=== PATIENT | female | born 1990 | race Caucasian/White ===

== ENCOUNTER 2023-04-04 00:49 | Emergency (ER) | payer OTHER, SELFPAY ==
[2023-04-04 00:57] VITALS: BP 140/80; PULSE 100; RESP 18; TEMP 36.6; O2SAT 100; BMI 22.6
--- NOTE | 2023-04-04 01:08 | ED.GENADUL1 ---
HPI - General Adult General Stated complaint: SPECTRUM IN NOSE Time Seen by Provider: 04/04/23 00:55 Source: patient Mode of arrival: walk-in Limitations: no limitations History of Present Illness HPI narrative: 32-year-old female presents for a hole in the septum of her nose. She's noticed it about two weeks ago. She snorts heroin. She is now in outpatient rehab and has been in that rehab for five or six days. She's had no purulent drainage or fever or bleeding. She wanted to get checked to make sure that she wasn't needing emergent care. Related Data Home Medications Medication Instructions Recorded Confirmed No Known Home Medications 04/04/23 04/04/23 Allergies Allergy/AdvReac Type Severity Reaction Status Date / Time No Known Drug Allergies Allergy Verified 04/04/23 01:00 Review of Systems ROS Narrative A ten point review of systems is negative except as noted above. Exam Narrative Exam Narrative: Nurses note and vital signs reviewed and patient is not hypoxic. General: The patient appears well and in no apparent distress. she is tearful Skin: Warm, dry, no pallor noted. There is no rash noted. Head: Normocephalic, atraumatic Eye: Normal conjunctiva, no drainage Ears, Nose, Mouth, and Throat: oral mucosa is moist. Nares patent. septal perforation present. No bleeding or purulent drainage. Cardiovascular: Regular Rate and Rhythm Respiratory: Patient is in no distress, no accessory muscle use, lungs are clear to auscultation, no wheezing, rales or rhonchi Back: non-tender GI: nontender Musculoskeletal: The patient has no evidence of calf tenderness, no pitting edema, symmetrical pulses noted bilaterally Neurological: A&O, normal speech Psychiatric: Cooperative Constitutional Vital Signs, click to edit/add: Last Vital Signs Temp 98 F 04/04/23 00:57 Pulse 100 H 04/04/23 00:57 Resp 18 04/04/23 00:57 BP 140/80 04/04/23 00:57 Pulse Ox 100 04/04/23 00:57 O2 Del Method Room Air 04/04/23 00:57 Course Vital Signs Vital signs: Vital Signs Temperature 98 F 04/04/23 00:57 Pulse Rate 100 H 04/04/23 00:57 Respiratory Rate 18 04/04/23 00:57 Blood Pressure 140/80 04/04/23 00:57 Pulse Oximetry 100 04/04/23 00:57 Oxygen Delivery Method Room Air 04/04/23 00:57 Temperature 98 F 04/04/23 00:57 Pulse Rate 100 H 04/04/23 00:57 Respiratory Rate 18 04/04/23 00:57 Blood Pressure 140/80 04/04/23 00:57 Pulse Oximetry 100 04/04/23 00:57 Oxygen Delivery Method Room Air 04/04/23 00:57 Medical Decision Making MDM Narrative Medical decision making narrative: the patient was reassured and referred to ENT. Treatment diagnosis and follow-up were discussed with the patient. Differential Diagnosis Differential Diagnosis: nasal septum perforation Discharge Plan Discharge Clinical Impression: Nasal septum perforation Patient Disposition: Home, Self-Care Time of Disposition Decision: 01:07 Condition: Good Mode of Transportation: Private Vehicle Prescriptions / Home Meds: No Action No Known Home Medications Instructions: Septorhinoplasty (DC) Additional Instructions: Follow-up with Dr. Bernard Stand Alone Forms: Portal Instructions Referrals: Physician,Non-Staff, MD [Primary Care Provider] - 1 week
--- NOTE | 2023-04-04 01:10 | PC.NURSE ---
Pt has hole in septum x2 weeks from chronic drug use, no bleeding noted and minimal drainage from wound. Nasal airway intact.
[2023-04-04 01:16] VITALS: BP 128/78; PULSE 80; RESP 16; O2SAT 99
== END 2023-04-04 01:17 | disposition home or self-care (01) ==
PROVIDERS: Emergency Provider Emergency Medicine
DX: J34.89 Other specified disorders of nose and nasal sinuses (principal); F11.90 Opioid use, unspecified, uncomplicated
CPT/HCPCS: 99281

== ENCOUNTER 2024-09-18 19:02 | Outpatient (REF) | payer OTHER, SELFPAY ==
--- OUTSIDE RECORDS SUMMARY | 2021-08-05 06:16 | XMS_ITS | Continuity of Care Document ---
Author Organization [facility] Address [address] [place] [address] Phone Care Team Providers Care Hospital Director Name Role Phone Robin Gaines Unavailable Unavailable Allergies, Adverse Reactions, Alerts Substance Reaction Status Criticality No Known Allergies Active No Inform ation Medications Medication Instructions Dosage Effective Dates (start - stop) Status Comments No Drug Therapy Prescribed Procedures Procedure Date Acute Detox Cardiology Technologist Acute Detox Cardiology Technologist COVID-19 Antigen Test DRUG TEST PRSMV DIR OPT OBS URINE TEST Acute Detox Cardiology Technologist Acute Detox Cardiology Technologist Acute Detox Cardiology Technologist Acute Detox Cardiology Technologist Acute Detox Cardiology Technologist Acute Detox Cardiology Technologist Acute Detox Cardiology Technologist Acute Detox Cardiology Technologist URINE TEST Acute Detox Cardiology Technologist Acute Detox Cardiology Technologist Acute Detox Cardiology Technologist Acute Detox Cardiology Technologist Acute Detox Cardiology Technologist Alcohol and/or drug services- Acute Deto x No Charge URINE TEST DRUG TEST PRSMV DIR OPT OBS DRUG SCREENING FENTANYL Alcohol and/or drug services- Acute Deto x No Charge Alcohol and/or drug services- Acute Deto x Alcohol and/or drug services- Acute Deto x Alcohol and/or drug services- Acute Deto x IMMUNIZATION ADMIN HEP A VACCINE, ADULT IM Alcohol and/or drug services- Acute Deto x Alcohol and/or drug services- Acute Deto x No Charge No Charge EST FP MEDICAID SPECIMEN HANDLING URINE TEST OFFICE/OUTPATIENT VISIT, EST HIV-1 URINALYSIS, NONAUTO W/SCOPE SMEAR, WET MOUNT, SALINE/INK SPECIMEN HANDLING ROUTINE VENIPUNCTURE RPR, RFX On RPR URINE TEST Advance Directives Directive Yes / No Effective Date File Name No Information Encounters Encounter Description Practice Location Reason(s) For Visit Diagnoses Date Provider Providers Copied on Encounter [facility], [address] [place] [address], [id number] , tel: [phone] [facility] Detox Follow-up Day 3 (chief complaint) No Information 2 Liana Kelly. [address] [place] [address], [id number], [place]. tel: [phone] [facility], [address] [place] [address], [id number] , [place] tel: [phone] [facility] Opioid dependence with withdrawalMood disorderHepatitis C 2 Liana Kelly. [address] [place], [address], [place]. tel: [phone] [facility], [address] [place] [address], [id number] , [place] tel: [phone] [facility] substance abuse (chief complaint) Opioid dependence with withdrawalMood disorderHepatitis C 2 Liana Kelly. [address] [place] [address], [id number], [place]. tel: [phone] [facility], [address], [place], [id number] , [place] tel: [phone] [facility] Opioid dependence with withdrawalMood disorderHepatitis C 2 Liana Kelly. [address] [place], [address], [place]. tel: [phone] [facility], [address], [place], [id number] , [place] tel: [phone] [facility] Opioid dependence with withdrawalEncounter For Screening For Covid-19Encounter for test, result negative 2 Liana Kelly. [address] [place], [address], [place]. tel: [phone] [facility], [address] [place] [address], [id number] , [place] tel: [phone] [facility] Opioid dependence with withdrawal 1 Pavlock DO Max. [address], [place], [id number] , [place]. tel: [phone] [facility], [address], [place], [id number] , [place] tel: [phone] [facility] Opioid dependence with withdrawal 1 Pavlock DO Max. [address], [place], [id number] , [place]. tel: [phone] [facility], [address] [place] [address], [id number] , [place] tel: [phone] [facility] fentanyl dependence (chief complaint) Opioid dependence with withdrawal 1 Alex Arreguin. [address], [place], [id number] , [place]. tel: [phone] [facility], [address], [place], [id number] , [place] tel: [phone] [facility] Opioid dependence with withdrawalEncounter for test, result negative 1 Pavlock DO Max. [address], [place], [id number] , [place]. tel: [phone] [facility], [address], [place], [id number] , [place] tel: [phone] [facility] Opioid dependence with withdrawalEncounter for test, result negative 1 Pavlock DO Max. [address], [place], [id number] , [place]. tel: [phone] [facility], [address], [place], [id number] , [place] tel: [phone] [facility] Opioid dependence with withdrawalEncounter for test, result negative 1 Pavlock DO Max. [address], [place], [id number] , [place]. tel: [phone] [facility], [address], [place], [id number] , [place] tel: [phone] [facility] Opioid dependence with withdrawalEncounter for test, result negative 1 Pavlock DO Max. [address], [place], [id number] , [place]. tel: [phone] [facility], [address], [place], [id number] , [place] tel: [phone] [facility] Opioid dependence with withdrawalEncounter for test, result negative 1 Pavlock DO Max. [address], [place], [address] , [place]. tel: [phone] [facility], [address], [place], [id number] , [place] tel: [phone] [facility] Opioid dependence with withdrawal 1 Pavlock DO Max. [address], [place], [id number] , [place]. tel: [phone] [facility], [address], [place], [address] , [place] tel: [phone] [facility] Opioid dependence with withdrawal 1 Pavlock DO Max. [address], [place], [id number] , [place]. tel: [phone] [facility], [address], [place], [id number] , [place] tel: [phone] [facility] Opioid dependence with withdrawalEncounter for test, result negative 1 Pavlock DO Max. [address], [place], [id number] , [place]. tel: [phone] [facility], [address], [place], [id number] , [place] tel: [phone] [facility] fentanyl dependence (chief complaint) Opioid dependence with withdrawal 1 Alex Arreguin. [address], [place], [id number] , [place]. tel: [phone] [facility], [address], [place], [id number] , [place] tel: [phone] [facility] Opioid dependence with withdrawalEncounter for test, result negative 1 Pavlock DO Max. [address], [place], [id number] , [place]. tel: [phone] [facility], [address], [place], [id number] , [place] tel: [phone] [facility] Opioid dependence with withdrawalEncounter for test, result negative 1 Pavlock DO Max. [address], [place], [id number] , [place]. tel: [phone] [facility], [address], [place], [id number] , [place] tel: [phone] [facility] Opioid dependence with withdrawal 9 Pavlock DO Max. [address], [place], [id number] , [place]. tel: [phone] [facility], [address], [place], [address] , [place] tel: [phone] [facility] No Information 9 Pavlock DO Max. [address], [place], [id number] , [place]. tel: [phone] [facility], [address], [place], [address] , [place] tel: [phone] [facility] heroin dependence (chief complaint) Opioid dependence with withdrawal 9 Alex Arreguin. [address], [place], [id number] , [place]. tel: [phone] [facility], [address], [place], [address] , [place] tel: [phone] [facility] Opioid dependence with withdrawalEncounter for test, result negative 9 Ana Hernandez. [address], [place], [id number] , [place]. tel: [phone] [facility], [address], [place], [address] , [place] tel: [phone] [facility] No Information 9 Pavlock DO Max. [address], [place], [address] , [place]. tel: [phone] [facility], [address], [place], [address] , [place] tel: [phone] [facility] Opioid dependence with withdrawal 9 Pavlock DO Max. [address], [place], [address] , [place]. tel: [phone] [facility], [address], [place], [address] , [place] tel: [phone] [facility] Opioid dependence with withdrawal 9 Pavlock DO Max. [address], [place], [id number] , [place]. tel: [phone] [facility], [address], [place], [address] , [place] tel: [phone] [facility] Opioid dependence with withdrawal Apr-1 0-201 9 Pavlock DO Max. [address], [place], [address] , [place]. tel: [phone] [facility], [address], [place], [address] , [place] tel: [phone] [facility] Opioid dependence with withdrawal Apr-0 9-201 9 Pavlock DO Max. [address], [place], [address] , [place]. tel: [phone] [facility], [address], [place], [address] , [place] tel: [phone] [facility] heroin dependence (chief complaint) Opioid dependence with withdrawal Apr-0 8-201 9 Alex Arreguin. [address], [place], [id number] , [place]. tel: [phone] [facility], [address], [place], [address] , [place] tel: [phone] [facility] Opioid dependence with withdrawal Apr-0 8-201 9 Pavlock DO Max. [address], [place], [id number] , [place]. tel: [phone] [facility], [address], [place], [address] , [place] tel: [phone] [facility] No Information Apr-0 8-201 9 Pavlock DO Max. [address], [place], [address] , [place]. tel: [phone] [facility], [address], [place], [address] , [place] tel: [phone] [facility] No Information May-0 -201 1 Lamp Yolis. [address], [place], [address] , [place]. tel: [phone] [facility], [address], [place], [address] , [place] tel: [phone] [facility] No Information 2 -201 0 Lamp Yolis. [address], [place], [address] , [place]. tel: [phone] OFFICE/OUTPA TIENT VISIT, EST [facility], [address], [place], [id number] , [place] tel: [phone] [facility] No Information 2-200 9 Aarti Lau. [address], [place], [address] , [place]. tel: [phone] Family History Family Member Type Diagnosis Age At Onset Father Problem (finding) Alive and well Father Problem (finding) recovering addict Mother Problem (finding) Alive and well Immunizations Vaccine Date Status Comments Hep A (adult) administered Source: New Im munization Record Payers Payer name Insurance type Covered green party ID Authoriza tion(s) [employer] Medicaid [place] [id number] Medicaid HMO [facility] [id number] Social History Type Description Quantity Date Captured Comments Alcohol Use Details Unknown Caffeine Use Details Unknown Tobacco Use Status Smoking Status No Information Sex Female Sexual Orientation Straight or heterosexual May Gender Identity Female Chief Complaint And Reason For Visit From encounter dated '08/05/2021 10:16'. Follow-up Day 3 (chief complaint). Description: The symptoms are reported as being moderate. The symptoms occur constantly. She states the symptoms are acute and are unchanged. ROS:? Const(-), Pt denies cravings, C/V(-), Resp(-), G/I(-), G/U(-),?Neuro(-), S/M(+) body aches.?Psych(+) insomnia. Denies S/I H/I A/H V/H All other systems reviewed and are negative P/E: General: Fair hygiene, NAD, HEENT:NC/AT, Neuro: CN grossly intact with no focal deficitsnoted, Eyes: anicteric non-injected pupils at 4 mm PERRLA, Lungs: CTA, no wheezing or cough appreciated, Heart: RRR no RMG, Skin: Even Facial tones, dry intact. ABD: Non-distended, no apparent guarding, Extremities with no edema or varicosities, digits unremarkable, Skeletal with full ROM, gait intact, Transfer smooth.V/S:SAFLabs/records reviewed- drawn pending Psych: Positive affect, Mood Euthymic, eye contact intermittent, Behavior Cooperative, Dress appropriate for age and weather, spontaneous to humor, Though Content concrete, Speech clear with normal Rate?Counseling: All FDA approved MAT options reviewed with risks benefits and alternatives discussed and provided in writing. The risk of relapse following detoxification without entry into medication assist. Education about overdose and narcan availability provided.A/P OUD-severe1) Continue Tramadol protocol as written2) Follow daily while on protocol3) Encourage post detox AoD treatment- 12 step programming, return to IOPprogram4) Review MAT options, offer and educate on Narcan, has prescription for suboxone Mood disorder1) Monitor for exacerbation-SI/HI Hepatitis C1) Counseled Pt. on natural course of disease and potential interventions2) Encouraged follow-up with ID on discharge3) Monitor closely for exacerbation Reason For Referral Reason For Referral No Information History Of Present Illness Encounter Date Complaint History Of Prese nt Illness Follow-up Day 3 The symptoms are reported as being moderate. The symptoms occur constantly. She states the symptoms are acute and are unchanged. ROS: Const(-), Pt denies cravings, C/V(-), Resp(-), G/I(-), G/U(-), N euro(-), S/M(+) body aches. P sych(+) insomnia. Denies S/I H/I A/H V/H All other systems reviewed and are negative P /E: General: Fair hygiene, NAD, HEENT:NC/AT, Neuro: CN grossly intact with no focal deficits noted, Eyes: anicteric non-injected pupils at 4 mm PERRLA, Lungs: CTA, no wheezing or cough appreciated, Heart: RRR no RMG, Skin: Even Facial tones, dry intact. ABD: Non-distended, no apparent guarding, Extremities with no edema or varicosities, digits unremarkable, Skeletal with full ROM, gait intact, Transfer smooth.V/S:SAFLabs/records reviewed- drawn pending Psych: Positive affect, Mood Euthymic, eye contact intermittent, Behavior Cooperative, Dress appropriate for age and weather, spontaneous to humor, Though Content concrete, Speech clear with normal Rate C ounseling: All FDA approved MAT options reviewed with risks benefits and alternatives discussed and provided in writing. The risk of relapse following detoxification without entry into medication assist. Education about overdose and narcan availability provided.A/P OUD-severe1) Continue Tramadol protocol as written2) Follow daily while on protocol3) Encourage post detox AoD treatment- 12 step programming, return to IOP program4) Review MAT options, offer and educate on Narcan, has prescription for suboxone Mood disorder1) Monitor for exacerbation-SI/HI Hepatitis C1) Counseled Pt. on natural course of disease and potential interventions2) Encouraged follow-up with ID on discharge3) Monitor closely for exacerbation substance abuse The symptoms are reported as being moderate. The symptoms occur constantly. She states the symptoms are acute and are of new onset. AoD Assessment reviewed. Patient is a 31 year old female with hx of OUD who reports for detox from fentanyl. She reports using 0.5 grams daily for the past 3 weeks. She reports that this is a relapse after 6 months of sobriety. Last use was 0630 am on 08/03/21. Patient denies any other drug use. fentanyl dependence 30 year old female checked in to detox yesterday and reports last using fentanyl 2 days ago. She typically injects 2g/day and has been using opiates for 6 years. She last attended detox 2 weeks agosurgical hx- noneallergies- nonemeds- nonetobacco- 1/2 ppdalcohol- occasionalplans upon completing detox- sober living fentanyl dependence 30 year old female checked in to detox yesterday and reports last using heroin 2 days ago. She typically injects 2-3g/day and has been using opiates for 6 years. She last attended detox 10 months ago.surgical hx- noneallergies- nonemeds- nonetobacco- 1/2 ppdalcohol- occasionalplans upon completing detox- IOP heroin dependence 28 year old fe male checked in to detox today and reports last using heroin/fentanyl this morning. She typically uses 1-1.5g/day and has been doing so for 6-7 years. She has attended detox three times prior with the last being 3 months ago.surgical hx- noneallergies- nonemeds- nonetobacco- 1 ppdalcohol- occasionalplans upon completing detox- inpatient heroin dependence 27 year old fe male checked in to detox today and reports last using heroin yesterday. She typically uses 2g/day and has been doing so for 2 years. She explained that she relapsed 4 months ago after 9 months clean after breaking vertebrae and was given pain meds. She has attended detox once before 1/5 years ago.Surgical hx- noneallergies- nonemeds- nonetobacco- 1 ppdalcohol- occasionalplans upon completing detox- none yet Functional Status Date Functional Assessmen t No Information Medications Administered Medication Instructions Dosage Effective Dates (start - stop) Status Comments No Drug Therapy Prescribed Instructions Date Instruction Additional Infor elma Encourage PO fluids - Related to Opioid dependence with withdrawal Encourage PO fluids - Related to Opioid dependence with withdrawal Assessments Type Assessment Date No Information Patient Care Teams Name Effective Dates (start - stop) Status Members No Information
--- OUTSIDE RECORDS SUMMARY | 2024-08-24 07:30 | XMS_ITS ---
Author Organization [facility] es Address [address] [place] [address] Care Team Providers Care Hard [place] Miner [employer]asting Name Role Phone Anayeli Fong Primary Care Provider [phone] REASON FOR VISIT MAT Encounters Encounter Location Date Provider Diagnosis [facility] [address] [place] [address] 08/24/2024 Anayeli Fong Plan Of Treatment Next Appt Details Provider Name:Francine fox, 09/20/2024 02:00:00 PM, [address], [place], [address], Provider Name:Anayeli perkins, 09/21/2024 11:00:00 AM, [address], [place], [address], Provider Name:Francine fox, 09/26/2024 08:30:00 AM, [address], [place], [address], Provider Name:Vania Escobar, 11/12/2024 01:00:00 PM, [address], [place], [address], Progress Notes * LENIN ERICKSONDOB: 0 (34 yo F)Acc No.[id number]:08/24/2024 Patient: PAULIE GONSALESICA Provider: Sharri Fong CNP :1990 A ge:34 Y S ex:Female Date:08/24/2024 Address:[address] [place] [address] , [place], [id number] Subjective: * Chief Complaints: * 1 . MAT. * Medical History: Objective: * Vitals: Assessment: Plan: * Treatment: * Images: * Electronic signature of SHIANA Stockton on 09/18/2024 at 01:27 PM EDT Sign off status: Pending * Provider: Sharri Fong CNP Date: 0 08/24/2024 Generated for Zoe romo/Rudy/Ghadaitting on: 0 09/18/2024 01:27 PM EDT
--- OUTSIDE RECORDS SUMMARY | 2024-08-27 04:45 | XMS_ITS ---
Author Organization [facility] es Address [address] [place] [address] Care Team Providers Care Supervisor Transcribing Operators Name Role Phone Anayeli Fong Primary Care Provider REASON FOR VISIT r/s from 08/24 Encounters Encounter Location Date Provider Diagnosis [facility] [place] [address] [address] 08/27/2024 Anayeli Fong Plan Of Treatment Next Appt Details Provider Name:Francine fox, 09/20/2024 02:00:00 PM, [address], [place], [address], Provider Name:Anayeli perkins, 09/21/2024 11:00:00 AM, [address], [place], [address], Provider Name:Francine fox, 09/26/2024 08:30:00 AM, [address], [place], [address], Provider Name:Vania Escobar, 11/12/2024 01:00:00 PM, [address], [place], [address], Progress Notes * LENIN ERICKSONDOB: 0 (34 yo F)Acc No.[id number]:08/27/2024 Patient: Yokasta LENIN CARO Provider: Sharri Fong CNP :1990 A ge:34 Y S ex:Female Date:08/27/2024 Address:[address] [place] [address] [place], [place], [id number] Subjective: * Chief Complaints: * 1 . R/s from 08/24. * Medical History: Objective: * Vitals: Assessment: Plan: * Treatment: * Images: * Electronic signature of SHAINA Stockton on 09/18/2024 at 01:27 PM EDT Sign off status: Pending * Provider: Sharri Fong CNP Date: 08/27/2024 Generated for Zoe romo/Rudy/Benjamin on: 09/18/2024 01:27 PM EDT
--- OUTSIDE RECORDS SUMMARY | 2024-09-18 13:00 | XMS_ITS | Encounter Summary ---
Author Organization [facility] Address [address] [place] [address] Care Team Providers Care Grapple Crew Leader Name Role Phone Brenda Vilchis COMMISSIONER PUBLIC WORKS Unavailable [phone] Reason for Visit * Reason Comments Well Women Visit Encounter Details Date Type Department Care Team (Late st Contact Info) Description 09/18/2024 1:00 PM EDT Office Visit [facility] [address] [place] [id number] Shiela Jaramillo PA [address] [place], [facility] Well woman exam with routine gynecological exam; PCOS (polycystic ovarian syndrome) Social History Tobacco Use Types Packs/Day Years Used Date Smoking Tobacco: Never Assessed Comments:Uses tobacco in oth er forms Alcohol Use Standard Drinks/Week Comments Yes 0 (1 standard drink = 0.6 oz pur e alcohol) AUDIT-C Answer Date Recorded Frequency of Alcohol Consumption Not on file 03/10/2023 Q2: How many drinks containi ng alcohol do you have on a typical day when you are drinking? 1 or 2 03/10/2023 Q3: How often do you have si x or more drinks on one occasion? Weekly 03/10/2023 Comments No Sex and Gender Information Value Date Recorded Sex Assigned at Not on file Legal Sex Female 7:20 PM EDT Gender Identity Not on file Sexual Orientation Not on file documented as of this encounter Last Filed Vital Signs Vital Sign Reading Time Taken Comments Blood Pressure 102/70 09/18/2024 1:44 PM EDT Pulse - - Temperature - - Respiratory Rate - - Oxygen Saturation - - Inhaled Oxygen Concentration - - Weight 73.7 kg (162 lb 8 oz) 09/18/2024 1:44 PM EDT Height - - Body Mass Index 27.04 06/28/2022 12:00 PM EDT documented in this encounter Progress Notes * CAN Felix - 09/18/2024 1:00 PM EDT Reason for Appointment: Patient ID: France Bustos is a 34 y.o. female who presents for Well Women Visit Patient presents today for Annual Exam. 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 History of vertebral fracture Marijuana use Opioid abuse ([facility]) Opioid dependence (HCC) HISTORY PAST MEDICAL HISTORY SOCIAL HISTORY Past Medical History: Diagnosis Date BMI 25.0-25.9,adult Chronic hepatitis C (HCC) H/O LEEP H/O 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 History of vertebral fracture Broken Vertebraes in Back Marijuana use Opioid abuse ([facility]) Opioid dependence (HCC) Social History Tobacco Use Smoking status: Not on file Smokeless tobacco: Not on file Substance Use Topics Alcohol use: Yes Drug use: Yes Types: Marijuana, Fentanyl, Heroin Comment: in treatment FAMILY HISTORY Family History Problem Relation Name Age of Onset No Known Problems Brother SURGICAL HISTORY Past Surgical History: Procedure Laterality Date CERVICAL BIOPSY W/ LOOP ELECTRODE EXCISION 11/2021 REVIEW OF SYSTEMS Review of Systems: Review of Systems All other systems reviewed and are negative. OBJECTIVE Objective: Physical Exam Constitutional: Appearance: Normal appearance. She is well-developed. Genitourinary: Vulva normal. Cardiovascular: Rate and Rhythm: Normal rate and regular rhythm. Pulmonary: Effort: Pulmonary effort is normal. Breath sounds: Normal breath sounds. Abdominal: General: Bowel sounds are normal. There is no distension. Palpations: Abdomen is soft. Tenderness: There is no abdominal tenderness. There is no guarding or rebound. Musculoskeletal: General: No swelling. Normal range of motion. Right lower leg: No edema. Left lower leg: No edema. Neurological: Mental Status: She is alert and oriented to person, place, and time. Skin: General: Skin is warm and dry. Psychiatric: Mood and Affect: Mood normal. Behavior: Behavior normal. Vitals and nursing note reviewed. Exam conducted with a ditch worker present. Vitals: Estimated body mass index is 27.04 kg/m?? as calculated from the following: Height as of 06/28/22: 5' 5 . Weight as of this encounter: 162 lb 8 oz. BP: 102/70 Patient's last menstrual period was 08/26/2024 (approximate). ASSESSMENT & PLAN ICD-10-CM 1. Well woman exam with routine gynecological exam Z01.419 Pap Smear HPV DNA probe, amplified TSH Lipid panel Comprehensive metabolic panel Hemoglobin A1c CBC and differential Lipid panel 2. PCOS (polycystic ovarian syndrome) E28.2 hCG, quantitative, TSH T4, free CBC and differential Follicle stimulating hormone Luteinizing hormone Hemoglobin A1c DHEA-sulfate DHEA US Pelvis w/ TV DHEA Pt complains of having pelvic pain, nausea and weight loss w/out trying. Wellness orders and PCOS labs were ordered along w/a pelvic pain. Pt to have done and scheduled a f/up visit in our office. Patient is currently taking new medication for Brixadi an extended release injection of buprenorphine.I believe her weight loss and appetite suppression with nausea could be due to new medication. We will order labs and ultrasound as well to rule out other possibilities Documented by Dawna Tolbert MA on behalf of: CAN Felix documented in this encounter Plan of Treatment Upcoming Encounters Date Type Department Care Team (Late st Contact Info) Description 10/08/2024 11:00 AM EDT Ancillary Procedure [facility] [address] [place] [phone] 10/17/2024 1:30 PM EDT Office [place] [phone] Shiela Jaramillo PA [address] [place], [place] [address] [place] [address] 09/24/2025 2:00 PM EDT Office Visit [place] [phone] Shiela Jaramillo PA [address] [place] [address] Scheduled Orders Name Type Priority Associated Diagnoses Orde r Schedule Pap Smear Pathology and Cytology Routine Well woman exam with routine gynecological exam Ordered: 09/18/2024 HPV DNA probe, amplified Microbiology Routine Well woman exam with routine gynecological exam Ordered: 09/18/2024 TSH Lab Routine Well woman exam with routine gynecological exam Ordered: 09/18/2024 Lipid panel Lab Routine Well woman exam with routine gynecological exam Expected: 09/18/2024 (Approximate), Expires: 09/18/2025 Comprehensive metabolic panel Lab Routine Well woman exam with routine gynecological exam Ordered: 09/18/2024 Hemoglobin A1c Lab Routine Well woman exam with routine gynecological exam Ordered: 09/18/2024 CBC and differential Lab Routine Well woman exam with routine gynecological exam Ordered: 09/18/2024 hCG, quantitative, Lab Routine PCOS (polycystic ovarian syndrome) Ordered: 09/18/2024 TSH Lab Routine PCOS (polycystic ovarian syndrome) Ordered: 09/18/2024 T4, free Lab Routine PCOS (polycystic ovarian syndrome) Ordered: 09/18/2024 CBC and differential Lab Routine PCOS (polycystic ovarian syndrome) Ordered: 09/18/2024 Follicle stimulating hormone Lab Routine PCOS (polycystic ovarian syndrome) Ordered: 09/18/2024 Luteinizing hormone Lab Routine PCOS (polycystic ovarian syndrome) Ordered: 09/18/2024 Hemoglobin A1c Lab Routine PCOS (polycystic ovarian syndrome) Ordered: 09/18/2024 DHEA-sulfate Lab Routine PCOS (polycystic ovarian syndrome) Ordered: 09/18/2024 DHEA Lab Routine PCOS (polycystic ovarian syndrome) Expected: 09/18/2024 (Approximate), Expires: 09/18/2025 US Pelvis w/ TV Imaging Routine PCOS (polycystic ovarian syndrome) Expected: 09/18/2024 (Approximate), Expires: 09/18/2025 documented as of this encounter Visit Diagnoses Diagnosis Well woman exam with routine gynecological exam Routine gynecological examination PCOS (polycystic ovarian syndrome) Polycystic ovaries documented in this encounter Care Teams Grapple Crew Leader Relationship Specialty Start Date End Date Brenda Vilchis NP [address] [place] [address] [facility] 12/27/23 documented as of this encounter
--- OUTSIDE RECORDS SUMMARY | 2024-09-18 15:46 | XMS_ITS | Encounter Summary ---
Author Organization [facility] Address [address] [place] [address] Care Team Providers Care Input Output Clerk Name Role Phone Juan Bello Primary Care Provider [phone] Reason for Visit * Reason Comments Illness Pt reports she was a t work yesterday and the AC went out. She started feeling anxious and started having episodes of emesis and hot flashes. Pt left work and went home. Pt reports migraine, nausea and emesis since this AM. Encounter Details Date Type Department Care Team (Late st Contact Info) Description 09/18/2024 3:46 PM EDT - 09/18/2024 4:11 PM EDT Emergency [facility] Emergency Department [address] [place] [address] Don Jarquin MD [address] [id number] Dehydration (Primary Dx) Discharge Disposition: Home or Self Care Social History Tobacco Use Types Packs/Day Years Used Date Smoking Tobacco: Every Day E-Cigarettes Smokeless Tobacco: Never Alcohol Use Standard Drinks/Week Comments Not Currently 0 (1 standard drink = 0.6 oz pur e alcohol) social AUDIT-C Answer Date Recorded Q1: How often do you have a drink containing alcohol? Never 02/04/2024 Q2: How many drinks containi ng alcohol do you have on a typical day when you are drinking? Patient does not drink Q3: How often do you have si x or more drinks on one occasion? Never 02/04/2024 Interpersonal Safety Domain Source: IP Abuse Scr eening Answer Date Recorded Physical abuse Denies 02/04/2024 Verbal abuse Denies 02/04/2024 Emotional abuse Denies 02/04/2024 Financial abuse Denies 02/04/2024 Sexual abuse Denies 02/04/2024 Comments No Sex and Gender Information Value Date Recorded Sex Assigned at Not on file Legal Sex Female 1:19 PM EST Gender Identity Not on file Sexual Orientation Not on file documented as of this encounter Last Filed Vital Signs Vital Sign Reading Time Taken Comments Blood Pressure 113/59 09/18/2024 3:55 PM EDT Pulse 78 09/18/2024 3:55 PM EDT Temperature 36.9 C (98.4 F) 09/18/2024 3:55 PM EDT Respiratory Rate 16 09/18/2024 3:55 PM EDT Oxygen Saturation 98% 09/18/2024 3:55 PM EDT Inhaled Oxygen Concentration - - Weight 73 kg (161 lb) 09/18/2024 3:55 PM EDT Height 162.6 cm (5' 4 ) 09/18/2024 3:55 PM EDT Body Mass Index 27.64 09/18/2024 3:55 PM EDT documented in this encounter Functional Status documented as of this encounter Discharge Instructions * Attachments The following attachments cannot be sent through Care Everywhere. * Oral Rehydration (Italian) documented in this encounter Medications at Time of Discharge buprenorphine ER (BRIXADI) 96 MG/0.27ML SOSY injection Inject 0.27 mLs into the skin every 30 days. Max Daily Amount: 96 mg ondansetron (ZOFRAN) 4 MG tablet Take 1 tablet by mouth every 8 hours as needed for Nausea or Vomiting 12 tablet 09/18/2024 naloxone 4 MG/0.1ML LIQD nasal spray Inhale 1 spray into the lungs as needed 08/16/2019 ibuprofen (ADVIL;MOTRIN) 600 MG tablet Take 1 tablet by mouth every 6 hours as needed for Pain documented as of this encounter Plan of Treatment Not on file documented as of this encounter Visit Diagnoses Diagnosis Dehydration- Primary documented in this encounter Care Teams Input Output Clerk Relationship Specialty Start Date End Date Juan Bello PCP - General 01/24/22 documented as of this encounter
--- OUTSIDE RECORDS SUMMARY | 2024-09-18 19:04 | XMS_ITS | Encounter Summary ---
Author Organization [facility] Address [address] [place] [address] Care Team Providers Care Record Label Intern Name Role Phone Brenda Vilchis MACHINE HOOP MAKER HELPER Unavailable [phone] Encounter Details Date Type Department Care Team (Late Contact Info) Description 11/15/2023 Orders Only [facility] OB [address] [place] [address] Brenda Santacruz LPN [address] [place] [address] Social History Tobacco Use Types Packs/Day Years [...] drinks on one occasion? Weekly 03/10/2023 Comments Unknown Sex and Gender Information Value Date Recorded Sex Assigned at Not on file Legal Sex Female 7:20 PM EDT Gender Identity Not on file Sexual Orientation Not on file documented as of this encounter Plan of Treatment Upcoming Encounters Date Type Department Care Team (Late Contact Info) Description 10/08/2024 11:00 AM EDT Ancillary Procedure [facility] OB [address] [place] [address] [place] [address] 10/17/2024 1:30 PM EDT Office Visit [facility] OB [address] [place] [address] [place] [address] Shiela Jaramillo PA [address] [place] [address] 09/24/2025 2:00 PM EDT Office Visit [facility] OB [address] [place] [phone] Shiela Jaramillo PA [address] [place] [address] documented as of this encounter Procedures Procedure Name Priority Date/Time Associated Diagnosis Comments PAP SMEAR Routine 06/28/2022 12:00 AM EDT documented in this encounter Results * Pap Smear (06/28/2022 12:00 AM EDT) Swab Cervical swab / Unknown us Cait Nurse [facility] LAB CYTOLOGY ORDERABLES Final Result Performing Organization Address City/State/[facility] Co de Phone Number EXTERNAL LAB documented in this encounter Visit Diagnoses Not on filedocumented in this encounter Care Teams Record Label Intern Relationship Specialty Start Date End Date Brenda Vilchis NP [address] [place] [address] [address] [facility] 12/27/23 documented as of this encounter
--- OUTSIDE RECORDS SUMMARY | 2024-09-18 19:04 | XMS_ITS | Clinical Summary ---
Author Organization [facility] Address [id number] [address] [place] [address] Care Team Providers Care Manager Port Name Role Phone No Pcp, No Pcp Primary Care Provider Unavailabl e Allergies No known active allergies Medications PNV,calcium 47-mbxr-sxsie acid ( PLUS) 27 mg iron- 1 mg tablet Take 1 tablet by mouth daily. 30 tablet 5 08/13/19 20 Active buprenorphine (SUBUTEX) 2 mg tablet, sublingualIndicati ons:opioid withdrawal symptoms Place 1 tablet (2 mg total) under the tongue in the morning. Indications: symptoms from stopping treatment with opioid drugs. Takes 8 mg in AM and 4 mg in evening. . Active food supplemt, lactose-reduced (Boost Breeze NutritionaL) 0.04-1.05 gram-kcal/mL liquid Take 237 mL by mouth daily. Please take one daily, Cooney flavor 14 Bottle 4 08/23/19 Active magnesium oxide (MAG-OX) 400 mg tabletIndications: headache in second trimester Take 1 tablet (400 mg total) by mouth daily. 30 tablet 3 08/23/19 20 Active acetaminophen (TYLENOL) 325 mg tablet Take 2 tablets (650 mg total) by mouth as needed. 08/15/19 20 Active ALLY-GEST ANTACID 200 mg calcium (500 mg) chewable tablet Chew 1 tablet (200 mg total) and swallow in the morning. 08/15/19 Active BANOPHEN 25 mg capsule Take 25 mg by mouth daily. 08/15/19 Active STOOL SOFTENER 100 mg capsule Take 1 tablet by mouth 2 (two) times a day. 08/15/19 20 Active NARCAN 4 mg/actuation spray,non-aerosol nasal spray Inhale 1 spray (4 mg total) as needed. 08/16/19 20 Active vitamin B-6 25 MG tablet Take 1 tablet (25 mg total) by mouth as needed. 08/21/19 20 Active polyethylene glycol (GLYCOLAX) 17 gram packet Take 17 g by mouth daily. 72 each 3 09/20/19 20 Active bisacodyL (DULCOLAX, BISACODYL,) 10 mg suppository Insert 1 suppository (10 mg total) into the rectum daily. 12 suppository 09/20/19 20 Active ondansetron ODT (ZOFRAN ODT) 4 mg disintegrating tablet Dissolve 1 tablet (4 mg total) on tongue every 8 (eight) hours as needed for nausea or vomiting. 20 tablet 05/18/19 25 Active Active Problems Problem Noted Date Diagnosed Date HSIL (high grade squamous in traepithelial lesion) on Pap smear of cervix 09/20/2019 Overview (10/11/2019): Colpo scheduled for 09/27/2019. 1 biopsy was taken. Pathology with LSIL Plan to repeat colposcopy complicated by subutex maintenance, an tepartum 08/23/2019 Overview (08/23/2019): Currently at [facility] Subutex 8mg BID High-risk in second trimester 08/23/19 20 Overview (08/23/2019): Transfer of care of Or[facility] CONNOLLY (Dr. Bello) LMP MARLO 12/30/2019 dated by 15 week US 08/11/2019: normal anatomic US, CL 4.7cm, closed without funneling Substance use disorder 08/23/2019 Overview (08/23/2019): UDS positive for Amphetamines, Opiates, THC, and Ecstacy Heroine use in the past Chronic hepatitis C virus infection 08/23/2019 Overview (08/23/2019): 08/11/2019: viral load [id number] History of hepatitis B 08/23/2019 Overview (08/23/2019): HBV DNA negative Heroin use 08/10/2019 Immunizations No known immunizations Social History Tobacco Use Types Packs/Day Years Used Date Smoking Tobacco: Former Cigarettes 0.5 15 0 08/09/2004 - 08/10/2019 Smokeless Tobacco: Never Tobacco Cessation:Counseling Given: Not Answered Alcohol Use Standard Drinks/Week Comments Not Currently 0 (1 standard drink = 0.6 oz pur e alcohol) Childcare Answer Date Recorded Childcare Unknown 08/10/2019 Employment Answer Date Recorded Employment Unknown 08/10/2019 Purpose - Life Answer Date Recorded Purpose and direction in life Unknown Comments No Sex and Gender Information Value Date Recorded Sex Assigned at Not on file Legal Sex Female 3:22 PM EDT Gender Identity Not on file Sexual Orientation Not on file Last Filed Vital Signs Vital Sign Reading Time Taken Comments Blood Pressure 127/72 05/18/2024 1:10 AM EST Pulse 73 05/17/2024 10:29 PM EST Temperature 37 C (98.6 F) 05/17/2024 10:29 PM EST Respiratory Rate 20 05/17/2024 10:29 PM EST Oxygen Saturation 100% 05/18/2024 1:10 AM EST Inhaled Oxygen Concentration - - Weight 79.4 kg (175 lb) 05/17/2024 10:29 PM EST Height 165.1 cm (5' 5 ) 05/17/2024 10:29 PM EST Body Mass Index 29.12 05/17/2024 10:29 PM EST Plan of Treatment Health Maintenance Due Date Last Done Comments Depression Screening 2001 Adult BMI Follow Up Plan 07/20/2007 Pap Smear 08/22/2022 08/23/2019, 08/23/2019 Influenza Vaccine 11/26/2024 Adult BMI Screening 05/17/2025 05/17/2024 Tobacco Screening 05/17/2025 05/17/2024 DTaP,Tdap and Td Vaccines (3 - Td or Tdap) 01/20/2031 01/20/2021, 12/26/2019 Goals Goal Patient Goal Type Associated Problems Recent Progress Patient-Stated? Author <enter goal here> General Yes Anamaria Cuevas LISW Note: Evaluation of progress towards goal: Going to Drug Rehab directly from hospital[facility]. Medical Devices Not on file Procedures Procedure Name Priority Date/Time Associated Diagnosis Comments PAP SMEAR Routine 08/23/2019 3:00 PM EDT complicated by subutex maintenance, antepartum ([facility]) from Last 3 Months or Most Recently Relevant to Health Maintenance Results * (ABNORMAL) Pap Smear (08/23/2019 3:00 PM EDT) 08/23/2019 3:00 PM EDT 08/23/2019 3:02 PM EDT Narrative COPATH - 08/28/2019 1:10 PM EDT [facility] [address] [place] [address] Gynecologic Cytology Consultation Patient Name: LENIN BUSTOS : 1990 (Age: 29) Gender: F Taken: 08/23/2019 Reported: 08/28/2019 Physician(s): DEE GARCIA ([phone]) Copy To: [facility]. Rec. #: [id number] Acct: # [id number] Final Cytologic Interpretation ThinPrep Pap Test (Cervical): Satisfactory for evaluation. A transformation zone component is present. SQUAMOUS EPITHELIAL CELL ABNORMALITY A high-grade squamous intraepithelial lesion (HSIL) is present. Shift in vaginal timoteo suggestive of bacterial vaginosis. nxk/08/28/2019 Interpretation performed at [facility], [address] [place] [address], License number: [id number]. Electronically Signed Out By Fco King MD Date of Last Menstrual Period: (None Given) Other Clinical Conditions: Screening/Routine Source of Specimen ThinPrep Pap Test (Cervical) Thin Prep Pap (SOFT BOARDER) Fee Code(s): G0145, 94540 The Pap test is a screening test with an inherent, but low, probability of error. The Pap test is primarily effective for the diagnosis and prevention of squamous cell carcinoma. Regular screening is critical for prevention. ThinPrep liquid-based slides, which meet the Electronics Assembler And Tester criteria for automated screening, have been screened by the ThinPrep Imaging System (as of 12/12/06) along with an additional manual rescreening by a geriatric social work professor and, if indicated, by a pathologist. [facility] DO PATHOLOGY/CYTOLOGY ORDERABLES Final Result COPATH from Last 3 Months or Most Recently Relevant to Health Maintenance Insurance [employer] Advance Directives * Full Code (Latest Code Status on File) Date Activated Date Inactivated Comments 09/20/2019 1:40 PM 09/20/2019 4:08 PM Care Teams Manager Port Relationship Specialty Start Date End Date No Pcp, [place] [address] PCP - General Family Medicine 08/22/19
--- OUTSIDE RECORDS SUMMARY | 2024-09-18 19:05 | XMS_ITS | Clinical Summary ---
Author Organization [facility] Address [address] [place] [place] [address] Care Team Providers Care Professor Of Religion Name Role Phone Brenda Vilchis ADMISSIONS GATE ATTENDANT Unavailable [phone] Allergies No known active allergies Medications Brixadi 128 MG/0.36ML solution prefilled syringe Subcutaneous for 28 Days Active Encounters Date Type Department Care Team Description 09/18/2024 1:00 PM EDT Office Visit [facility] [address] [place] [address] Shiela Jaramillo PA Well woman exam with routine gynecological exam; PCOS (polycystic ovarian syndrome) 09/18/2024 Bamboo flowsheet [facility] [address] [place] [address] Shiela Jaramillo PA from Last 3 Months Family History Medical History Relation Name Comments No Known Problems Brother Relation Name Status Comments Brother Alive Daughter Alive Father Alive Mother Alive Son Alive Social History Tobacco Use Types Packs/Day Years Used Date Smoking Tobacco: Never Assessed Tobacco Cessation:Counseling Given: Not Answered Comments:Uses tobacco in other forms Alcohol Use Standard Drinks/Week Comments Yes [...] Pressure 102/70 09/18/2024 1:44 PM EDT Pulse 109 06/09/2023 7:16 PM EDT Temperature 36.5 C (97.7 F) 06/09/2023 7:16 PM EDT Respiratory Rate - - Oxygen Saturation 99% 06/09/2023 7:16 PM EDT Inhaled Oxygen Concentration - - Weight 73.7 kg (162 lb 8 oz) 09/18/2024 1:44 PM EDT Height 165.1 cm (5' 5 ) 06/28/2022 12:00 PM EDT Body Mass Index 27.04 06/28/2022 12:00 PM EDT Plan of Treatment Upcoming Encounters Date Type Department Care Team (Late st Contact Info) Description 10/08/2024 11:00 AM EDT Ancillary Procedure [facility] [address] [place] [phone] 10/17/2024 1:30 PM EDT Office Visit [facility] [place] [phone] Shiela Jaramillo PA [address] [place] [address] [place] [address] 09/24/2025 2:00 PM EDT Office Visit [facility] [phone] Shiela Jaramillo PA [address] [place] [address] [place] [address] Health Maintenance Due Date Last Done Comments HPV/Cotest 07/20/2019 Influenza Vaccine (Season Ended) 2024 05/27/19 23 Cervical Cancer Screening 06/28/2025 Pap Smear 06/28/2025 06/28/2022 Procedures Procedure Name Priority Date/Time Associated Diagnosis Comments PAP SMEAR Routine 06/28/2022 12:00 AM EDT from Last 3 Months or Most Recently Relevant to Health Maintenance Results * Pap Smear (06/28/2022 12:00 AM EDT) Swab Cervical swab / Unknown Cait Nurse [facility] CYTOLOGY ORDERABLES Final Result EXTERNAL LAB from Last 3 Months or Most Recently Relevant to Health Maintenance Insurance [employer] Care Teams Professor Of Religion Relationship Specialty Start Date End Date Brenda Vilchis NP [address] [place] [address] PCP - [facility] 12/27/23
--- OUTSIDE RECORDS SUMMARY | 2024-09-18 19:05 | XMS_ITS | Patient Health Record ---
Author Organization [facility] es Address [address] [place] [address] Care Team Providers Care Vb Net Developer Name Role Phone Anayeli Fong Primary Care Provider [phone] Francine Lee Unavailable [phone] Allergies Allergen (clinical drug ingredient) Drug/Non Drug Allergy documented on EMR Reaction Allergy Type Onset Date Status naloxone Naloxone nausea/vomiting Drug Allergy A ctive Results Component Value Reference Range Notes Urine Drug Screen Reviewed date:05/31/2024 02:34:04 PM Interpretation: Performing Lab: Notes/Report: THC POS FE NEG AMP NEG OPI NEG MAMP NEG PCP NEG BAR NEG BZO NEG MTO NEG MDMA NEG OXY NEG BUP POS GNURI - Complicated Genitour inary Infection (HTRx) Reviewed date:09/03/2024 08:50:48 AM Interpretation: Performing Lab: Notes/Report: Real-Time polymerase chain reaction (TaqMan qPCR) was utilized for detection for all tested organisms and resistance genes. Initiation of antimicrobial therapy prior to testing may affect results and can lead to the detection of non-living microorganisms. Detection of microbes must be correlated with current/recent antibiotic usage and patient signs and symptoms. Microbial sensitivity testing is not performed at this lab. Electronics Specialist to CFU/mL equivalent thresholds were established based on studies using known CFU/mL urine specimens performed at [facility] in [place], [place]. [facility] [place] [address]; CLIA# [id number]; Auto Transmission Technician Lenin Valente, PhD, [facility] This test was developed, and its performance characteristics determined by [facility]. It has not been cleared or approved by the FDA. However, such approval/clearance is not required, as the laboratory is regulated and qualified under CLIA to perform high-complexity testing. This test is used for clinical purposes and should not be regarded as investigational or for research. *Approximate copies of target nucleic acid per &micro;L (Low: <2,500 copies/&micro;L, Moderate: 2,500-50,000 copies/&micro;L, High: >50,000 copies/&micro;L) National Infectious Disease Consensus Data Potentially effective oral antibiotics, based on presence of detected microbes, antimicrobial resistance genes, and national antimicrobial sensitivity data (see Summary Antibiogram). Acinetobacter baumannii 0.000 19.961 - 24.689 p pm Acinetobacter baumannii Not Detected 19.961 - 24.689 p pm Atopobium vaginae 18.128 19.961 - 24.689 ppm Atopobium vaginae Detected 19.961 - 24.689 ppm BVAB 2,3 (bacterial vaginosi s associated bacteria 2, 3); Mobiluncus spp 13.750 19.961 - 24.689 ppm BVAB 2,3 (bacterial vaginosi s associated bacteria 2, 3); Mobiluncus spp Detected 19.961 - 24.689 ppm Yanelis albicans, parapsilosis, tropicalis 0.000 19.961 - 30.770 ppm Yanelis albicans, parapsilosis, tropicalis Not Detecte d 19.961 - 30.770 ppm Yanelis glabrata (Nakaseomyces glabratus) 0.000 23.000 - 32.138 ppm Yanelis glabrata (Nakaseomyces glabratus) Not Detected 23.000 - 32.138 ppm Yanelis krusei (Pichia kudriavzevii) 0.000 23.0 00 - 32.271 ppm Yanelis krusei (Pichia kudriavzevii) Not Detected 23.0 00 - 32.271 ppm Chlamydia trachomatis 0.000 23.000 - 31.467 ppm Chlamydia trachomatis Not Detected 23.000 - 31.467 ppm Citrobacter freundii 0.000 19.961 - 24.689 ppm Citrobacter freundii Not Detected 19.961 - 24.689 ppm Enterobacter aerogenes, cloacae 0.000 19.961 - 24.689 ppm Enterobacter aerogenes, cloacae Not Detected 19.961 - 24.689 ppm Enterococcus faecalis, faecium 0.000 19.961 - 2 4.689 ppm Enterococcus faecalis, faecium Not Detected 19.961 - 2 4.689 ppm Escherichia coli 0.000 19.961 - 24.689 ppm Escherichia coli Not Detected 19.961 - 24.689 ppm Gardnerella vaginalis 24.598 19.961 - 24.689 ppm Gardnerella vaginalis Detected 19.961 - 24.689 ppm Klebsiella pneumoniae, oxytoca 0.000 19.961 - 2 4.689 ppm Klebsiella pneumoniae, oxytoca Not Detected 19.961 - 2 4.689 ppm Megasphaera (Types 1, 2) 14.750 19.961 - 24.689 ppm Megasphaera (Types 1, 2) Detected 19.961 - 24.689 ppm Morganella morganii 0.000 19.961 - 24.689 ppm Morganella morganii Not Detected 19.961 - 24.689 ppm Neisseria gonorrhoeae 0.000 23.000 - 32.117 ppm Neisseria gonorrhoeae Not Detected 23.000 - 32.117 ppm Proteus mirabilis, vulgaris 0.000 19.961 - 24.6 89 ppm Proteus mirabilis, vulgaris Not Detected 19.961 - 24.6 89 ppm Pseudomonas aeruginosa 0.000 19.961 - 24.689 pp m Pseudomonas aeruginosa Not Detected 19.961 - 24.689 pp m Serratia marcescens 0.000 19.961 - 24.689 ppm Serratia marcescens Not Detected 19.961 - 24.689 ppm Staphylococcus aureus 0.000 19.961 - 24.689 ppm Staphylococcus aureus Not Detected 19.961 - 24.689 ppm Streptococcus agalactiae (Group B Strep) 0.000 19.961 - 24.689 ppm Streptococcus agalactiae (Group B Strep) Not Detected 19.961 - 24.689 ppm Streptococcus pyogenes (Group A strep) 0.000 19 .961 - 24.689 ppm Streptococcus pyogenes (Group A strep) Not Detected 19 .961 - 24.689 ppm Trichomonas vaginalis 0.000 23.000 - 32.119 ppm Trichomonas vaginalis Not Detected 23.000 - 32.119 ppm Staphylococcus epidermidis, haemolyticus, lugdunensis 0.000 19.961 - 24.689 ppm Staphylococcus epidermidis, haemolyticus, lugdunensis Not Detected 19.961 - 24.689 ppm Staphylococcus saprophyticus 0.000 19.961 - 24. 689 ppm Staphylococcus saprophyticus Not Detected 19.961 - 24. 689 ppm Mycoplasma genitalium 0.000 19.961 - 24.689 ppm Mycoplasma genitalium Not Detected 19.961 - 24.689 ppm Mycoplasma hominis 26.354 19.961 - 24.689 ppm Mycoplasma hominis Detected 19.961 - 24.689 ppm Ureaplasma parvum 24.789 19.961 - 24.689 ppm Ureaplasma parvum Detected 19.961 - 24.689 ppm Ureaplasma urealyticum 28.543 19.961 - 24.689 pp m Ureaplasma urealyticum Detected 19.961 - 24.689 pp m ermB, C; mefA 17.376 23.000 - 27.611 ppm ermB, C; mefA Detected 23.000 - 27.611 ppm tet B, tet M 18.147 23.000 - 27.778 ppm tet B, tet M Detected 23.000 - 27.778 ppm Urine Drug Screen Reviewed date:08/31/2024 10:11:01 AM Interpretation: Performing Lab: Notes/Report: THC pos FE neg AMP neg OPI neg MAMP neg PCP neg BAR neg BZO neg MTO neg MDMA neg OXY neg BUP pos Urinalysis un-automated Reviewed date:08/31/2024 10:15:04 AM Interpretation: Performing Lab: Notes/Report: Urine-Color yellow Appearance slight cloudy Specific [place] 1.020 pH 6 Glucose neg Protein trace Occult Blood trace Bilirubin negh Urobilinogen,Semi-Qn 0.2 Nitrite, Urine neg Ketones neg WBC Esterase mod Urine Drug Screen Reviewed date:07/12/2024 05:42:12 PM Interpretation: Performing Lab: Notes/Report: THC pos FE neg AMP neg OPI neg MAMP neg PCP neg BAR neg BZO neg MTO neg MDMA neg OXY neg BUP pos Urine Drug Screen Reviewed date:06/21/2024 02:08:26 PM Interpretation: Performing Lab: Notes/Report: THC pos FE neg AMP neg OPI neg MAMP neg PCP neg BAR neg BZO neg MTO neg MDMA neg OXY neg BUP pos Urine Drug Screen Reviewed date:05/03/2024 03:23:36 PM Interpretation: Performing Lab: Notes/Report: THC pos FE neg AMP pos OPI neg MAMP pos PCP neg BAR neg BZO neg MTO neg MDMA pos OXY neg BUP pos Urine Drug Screen Reviewed date:08/02/2024 02:21:22 PM Interpretation: Performing Lab: Notes/Report: THC pos FE neg AMP neg OPI neg MAMP neg PCP neg BAR neg BZO neg MTO neg MDMA neg OXY neg BUP pos Urine Drug Screen Reviewed date:04/24/2024 03:39:44 PM Interpretation: Performing Lab: Notes/Report: THC POS FE NEG AMP NEG OPI NEG MAMP POS PCP NEG BAR NEG BZO NEG MTO NEG MDMA POS OXY NEG BUP NEG Reason For Referral No Information Medications Medication SIG (Take, Route, Frequency, Duration) Notes Start Date End Date Status FLUoxetine HCl 10 MG 1 capsule Orally On ce a day for 30 days 06/21/2024 Not-Taking Brixadi 128 MG/0.36ML Subcutaneous for 2 8 Days Active Ondansetron HCl 4 MG 1 tablet Orally daily for 30 days As needed 04/24/2024 Active Brixadi 128 MG/0.36ML 0.36 mL Subcutaneo us monthly for 28 days F11.20 08/31/2024 09/28/2024 Active Gabapentin 100 MG 1 capsule Orally twi ce a day for 30 days 07/12/2024 Active Social History Tobacco Use: Social History Observation Description Date Details (start date - stop date) Unknown AUDIT-C (Standard) Question Answer Notes Did you have a drink containing alcohol in the p ast year? No Points 0 Interpretation Negative Tobacco Control (Standard) Question Answer Notes Tobacco use: Uses tobacco in other forms Additional Findings: Tobacco user e-cigarette Problems Problem Type SNOMED Code ICD Code Onset Dates Problem Status W/U Status Risk Notes Problem Opioid dependence (28674963) Opioid dependence, uncomplicated (F11.20) Active confirmed Problem Tobacco user (979238105) Nicotine dependence, unspecified, uncomplicated (F17.200) Active confirmed Problem 60654359 Moderate episode of recurrent major depressive disorder (F33.1) Active confirmed Problem 92118703 Anxiety, generalized (F41.1) Active confirmed Problem 69911598 Opioid withdrawa l (F11.93) Active confirmed Vital Signs Heart Rate 106 /min 08/31/2024 Temperature 97.5 degrees Fahrenheit 08/31/2024 Oximetry 97 % 08/31/2024 Blood pressure diastolic 67 mm Hg 08/31/2024 Height 66 in 08/31/2024 Blood pressure systolic 91 mm Hg 08/31/2024 Weight 167 lbs 08/31/2024 BMI 26.95 kg/m2 08/31/2024 Encounters Encounter Location Date Provider Diagnosis [address] [address] 04/24/2024 Anayeli Ajit [place] [address] [facility] [place] [address] 06/05/2024 Anayeli Ajit Opioid dependence, uncomplicated F11.20 [facility] [place] [address] 08/15/2024 Anayeli Ajit [place] [address] [facility] [place] [address] 09/03/2024 Anayeli Ajit [place] [address] [place] [address] 05/03/2024 Anayeli Ajit Opioid dependence, uncomplicated F11.20 [address] [place] [address] 05/24/2024 Anayeli Ajit Opioid dependence, uncomplicated F11.20 and Anxiety, generalized F41.1 [facility] [place] [address] 05/31/2024 Anayeli Ajit Opioid dependence, uncomplicated F11.20 and Opioid withdrawal F11.93 [place] [address] [place] [address] 06/21/2024 Anayeli Ajit Opioid dependence, uncomplicated F11.20 and Moderate episode of recurrent major depressive disorder F33.1 [facility] [address] [facility] [place] [address] 07/12/2024 Anayeli Ajit Opioid dependence, uncomplicated F11.20 and Opioid withdrawal F11.93 [facility] [address] [place] [address] 08/02/2024 Anayeli Ajit Opioid dependence, uncomplicated F11.20 ; Opioid withdrawal F11.93 and Nicotine dependence, unspecified, uncomplicated F17.[address] [address] 08/31/2024 Anayeli Ajit Opioid dependence, uncomplicated F11.20 and UTI symptoms R39.9 [facility] [address] [place] [address] 04/24/2024 Anayeli Ajit Opioid dependence, uncomplicated F11.20 and Opioid withdrawal F11.93 Assessments Encounter Date Diagnosis (ICD Code) Assessment Notes Treatment Notes Treatment Clinical Notes Section Notes 04/24/2024 Opioid dependence, uncomplicated (ICD-10 - F11.20) OUD: medication management of Opioid addiction, a chronic disease process with high likelihood of complication, including , even when in a stable state. Disease requiring ongoing medication management and evaluation Medical: c/o w/d symptoms, prescribed comfort meds MH: c/o anxiety and depression currently not taking any medications Tobacco: declied smoking cessation Reviewed diversion control: no selling, trading or sharing medication Induction: start medication today, reviewed medication administration and reviewed daily dosing OARRS: reviewed Medication: BUP combo 8/2mg Dispensed #14 x 7 days RTC 1 week 04/24/2024 Opioid withdrawal (ICD-10 - F11.93) continue medications as prescribed as needed for withdrawal symptoms., Learning About Medication-Assiste d Treatment for Opioid Use Disorder material was published, Opioid Withdrawal: Care Instructions material was published 05/03/2024 Opioid dependence, uncomplicated (ICD-10 - F11.20) OUD: medication management of Opioid addiction, a chronic disease process with high likelihood of complication, including , even when in a stable state. Disease requiring ongoing medication management and evaluation Medical: continue medications as prescribed for w/d symptoms MH: continue medications as prescribed Tobacco: declined smoking cessation Reviewed diversion control: no selling, trading or sharing medication OARRS: reviewed Medication: BUP combo 8/2mg 2 films daily Dispensed #14 x 7 days RTC 1 week 05/24/2024 Opioid dependence, uncomplicated (ICD-10 - F11.20) OUD: medication management of Opioid addiction, a chronic disease process with high likelihood of complication, including , even when in a stable state. Disease requiring ongoing medication management and evaluation Medical: denies any concerns MH: c/o increased anxiety, and emotional, tempus gene testing done today Tobacco: declined smoking cessation Reviewed diversion control: no selling, trading or sharing medication OARRS: reviewed Medication: BUP combo 8/2mg 1 film daily Dispensed #7 x 7 days. Brixadi 96mg prescribed RTC 1 week 05/24/2024 Anxiety, generalized (ICD-10 - F41.1) tempus testing done then patient will try and start a medication 05/31/2024 Opioid dependence, uncomplicated (ICD-10 - F11.20) OUD: medication management of Opioid addiction, a chronic disease process with high likelihood of complication, including , even when in a stable state. Disease requiring ongoing medication management and evaluation Medical: c/o withdrawal symptoms- comfort meds zofran prescribed MH: c/o increased anxiety Tobacco: declined smoking cessation Reviewed diversion control: no selling, trading or sharing medication OARRS: reviewed BUP combo 8/2mg 1 film daily PRN for w/d symptoms Dispensed #21 x 21days. Injection: Brixadi 96mg injection given today, tolerated well without difficulty. Bandaid applied. Educated on monitor injection site for swelling, redness or hot to touch, or develops a fever. Patient Counseled On Self-care llicit use Medication/dosing review Identifying triggers RTC 3 weeks Patient's medication was shipped to this office. Brixadi 96mg/0.27ml given subq to right upper abdomen. Patient tolerated well. LOT# [id number], EXP 11/2025. Given by Charlie Arce LPN. visit conducted by HIPPA compliant with zoom video telemedicine Patient identified with name and date of Patient is located in clinic. Provider is located in home office 06/05/2024 Opioid dependence, uncomplicated (ICD-10 - F11.20) 06/21/2024 Opioid dependence, uncomplicated (ICD-10 - F11.20) OUD: medication management of Opioid addiction, a chronic disease process with high likelihood of complication, including , even when in a stable state. Disease requiring ongoing medication management and evaluation Medical: denies concerns today MH: c/o increased despression- FLuoxetine 10mg daily prescribed Tobacco: declined smoking cessation Reviewed diversion control: no selling, trading or sharing medication OARRS: reviewed Medication: BUP combo 8-2mg 1 film daily as needed for w/d symptoms Dispensed # 7 x 7 days Injection: Brixadi 96mg monthly injection. tolerated well without difficulty. Bandaid applied. Educated on monitor injection site for swelling, redness or hot to touch, or develops a fever. Patient Counseled On -Self-care- - Illicit use -Medication/dosing review -Identifying triggers RTC 3 weeks 06/21/2024 Moderate episode of recurrent major depressive disorder (ICD-10 - F33.1) Will start patient on * Fluoxetine 10mg daily today. Discussed risks and side effects of medication including possible nausea, headache, upset stomach, diarrhea, constipation, anxiety, irritability, and sexual dysfunction. Most mild side effects improve over 4-6 weeks of use. Please monitor for worsening of symptoms, especially suicidal ideations or morbid thoughts, and call office and or go to the emergency department immediately if this occurs. Patient verbalized understanding, in agreement with plan. 07/12/2024 Opioid dependence, uncomplicated (ICD-10 - F11.20) OUD: medication management of Opioid addiction, a chronic disease process with high likelihood of complication, including , even when in a stable state. Disease requiring ongoing medication management and evaluation Medical: c/o nausea, anxiety and RLS prescribed Gabapentin 100mg BID. refilled Zofran 4mg ODT. MH: restart Fluoxetine 10mg in the evening Tobacco: declined smoking cessation Reviewed diversion control: no selling, trading or sharing medication OARRS: reviewed Medication: BUP combo 8/2mg 1 film daily Dispensed #21 x 21 days to supplement mild w/d symptoms Injection: Brixadi 96mg tolerated well without difficulty. Bandaid applied. Educated on monitor injection site for swelling, redness or hot to touch, or develops a fever. RTC 3 weeks Patient Counseled On - Self-care - Illicit use -Medication/dosing review -Identifying triggers Patient's medication has been shipped to this office. Brixadi 96mg/0.27ml given sub q to patient RUQ. Patient tolerated well. LOT# [id number], EXP.12/25/2025. Given by Charlie Arce LPN. 08/02/2024 Opioid dependence, uncomplicated (ICD-10 - F11.20) OUD: medication management of Opioid addiction, a chronic disease process with high likelihood of complication, including , even when in a stable state. Disease requiring ongoing medication management and evaluation Medical: c/o nausea- zofran prescribed. MH: c/o anxiety - Gabapentin prescribed Tobacco: declined smoking cessation Reviewed diversion control: no selling, trading or sharing medication OARRS: reviewed Medication: Brixadi 128mg Injection: tolerated well without difficulty. Bandaid applied. Educated on monitor injection site for swelling, redness or hot to touch, or develops a fever. Administered to LLQ. RTC 3 weeks Patient Counseled On -Self-care -Illicit use -Medication/dosing review -Identifying triggers Summary: Patient is doing well and would like to continue MAT treatment 08/02/2024 Opioid withdrawal (ICD-10 - F11.93) Pt will be prescribed Zofran (Ondansetron) Hcl 4mg and educated on taking medication and s/e, can cause constipation. Avoid triggering foods, moderate fluid intake of cold liquids. Recommended to call if symptoms persist or worsen. needs to follow up with PCP 08/31/2024 Opioid dependence, uncomplicated (ICD-10 - F11.20) OUD: medication management of Opioid addiction, a chronic disease process with high likelihood of complication, including , even when in a stable state. Disease requiring ongoing medication management and evaluation Medical: c/o UTI symptoms- UA in office and will send out health trax for C&S MH: Gabapentin refilled Tobacco: declined smoking cessation Reviewed diversion control: no selling, trading or sharing medication OARRS: reviewed Medication: Brixadi 128mg monthly Injection: tolerated well without difficulty. Bandaid applied. Educated on monitor injection site for swelling, redness or hot to touch, or develops a fever. RTC 3 weeks Patient Counseled On - Self-care - Illicit use -Medication/dosing review -Identifying triggers Her medication was shipped to this location for administration. Brixadi 128mg/0.36ml, given IM to RUQ. Patient tolerated well. LOT# [id number], EXP. 06/25/2026 Given by Charlie Arce LPN 08/31/2024 UTI symptoms (ICD-10 - R39.9) 08/02/2024 Nicotine dependence, unspecified, uncomplicated (ICD-10 - F17.200) 07/12/2024 Opioid withdrawal (ICD-10 - F11.93) 05/31/2024 Opioid withdrawal (ICD-10 - F11.93) 04/24/2024 Other Visit conducted by HIPAA-compliant with zoom video telemedicine/in person Patient identified with name and date of Patient is located in clinic. Provider is located in home office 05/03/2024 Other visit conducted by HIPPA compliant with zoom video telemedicine Patient identified with name and date of Patient is located in clinic. Provider is located in home office 05/24/2024 Other visit conducted by HIPPA compliant with zoom video telemedicine Patient identified with name and date of Patient is located in clinic. Provider is located in home office 06/21/2024 Other visit conducted by HIPPA compliant with zoom video telemedicine/in person Patient identified with name and date of Patient is located in clinic. Provider is located in home office Brixadi 96mg to LLQ LOT [id number] exp [id number], Body Mass Index: Care Instructions material was published, Body Mass Index: Care Instructions material was printed 07/12/2024 Other visit conducted by HIPPA compliant with zoom video telemedicine/in person Patient identified with name and date of Patient is located in clinic. Provider is located in home office 08/02/2024 Other Body Mass Index : Care Instructions material was published, Body Mass Index: Care Instructions material was printed 08/31/2024 Other visit conducted by HIPPA compliant with zoom video telemedicine/in person Patient identified with name and date of Patient is located in clinic. Provider is located in home office Plan Of Treatment Pending Test Test Name Order Date Urine Drug Screen w/Confirm 04/24/2024 Urine Drug Screen w/Confirm 05/03/2024 Urine Drug Screen w/Confirm 05/24/2024 Urine Drug Screen w/Confirm 07/12/2024 Next Appt Details Provider Name:Francine fox, 09/20/2024 02:00:00 PM, [address] [place] [address], [address], Provider Name:Anayeli perkins, 09/21/2024 11:00:00 AM, [address], [place], [address], Provider Name:Francine fox, 09/26/2024 08:30:00 AM, [address], [place], [address], Provider Name:Vania Escobar, 11/12/2024 01:00:00 PM, [address] [place], [address], Insurance Providers Payer Name Payer Address Payer Phone Subscriber Number Group Number Insured Name Patient Relationship to Insured Coverage Start Date Coverage End Date [employer] [place] [employer] [address] [place] [address] [id number] LENIN ERICKSON Self - patient is the insured 3 [facility] [address] [place] [address] [id number] DRELENIN Self - patient is the insured 3 [employer] [place] [employer] [address] [place] [address] [id number] LENIN ERICKSON Self - patient is the insured 4 [facility] [address] [place] [address] [id number] DREPAULIELENIN Self - patient is the insured 4 Medical (General) History Medical History History ICD Code CERVICAL CANCER Broke her back
--- OUTSIDE RECORDS SUMMARY | 2024-09-18 19:05 | XMS_ITS | Encounter Summary ---
Author Organization [facility] Address [address] [place] [address] Care Team Providers Care Winding Department Supervisor Name Role Phone Juan Bello Primary Care Provider [phone] Encounter Details Date Type Department Care Team (Latest Contact Info) Description 09/18/2024 Travel Social History Tobacco Use Types Packs/Day Years [...] on file documented as of this encounter Functional Status documented as of this encounter Plan of Treatment Not on file documented as of this encounter Visit Diagnoses Not on filedocumented in this encounter Care Teams Winding Department Supervisor Relationship Specialty Start Date End Date Juan Bello PCP - General 01/24/22 documented as of this encounter
--- OUTSIDE RECORDS SUMMARY | 2024-09-18 19:05 | XMS_ITS | Encounter Summary ---
Author Organization [facility] Address [address] [facility] [place] [address] Care Team Providers Care Agricultural Aircraft Pilot Name Role Phone Brenda Vilchis GASTROENTEROLOGY TECHNICIAN Unavailable [phone] Encounter Details Date Type Department Care Team (Late Contact Info) Description 09/18/2024 Bamboo flowsheet [facility] OB [address] [place] [phone] Shiela Jaramillo PA [address] [place] [address] [place], [facility] Social History Tobacco Use Types Packs/Day Years [...] 10/08/2024 11:00 AM EDT Ancillary Procedure [facility] OB [address] [place] [phone] 10/17/2024 1:30 PM EDT Office Visit [facility] [place] [facility] [place] [phone] Shiela Jaramillo PA [address] [place] [address] 09/24/2025 2:00 PM EDT Office Visit [facility] [address] [place] [address] [place] [phone] Shiela Jaramillo PA [address] [place], [place] [phone] documented as of this encounter Visit Diagnoses Not on filedocumented in this encounter Care Teams Agricultural Aircraft Pilot Relationship Specialty Start Date End Date Brenda Vilchis NP [address] [place] [address] PCP - [facility] 12/27/23 documented as of this encounter
--- OUTSIDE RECORDS SUMMARY | 2024-09-18 19:05 | XMS_ITS | Clinical Summary ---
Author Organization [facility] 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 Max Daily Amount: 96 mg Active ondansetron (ZOFRAN) 4 MG tablet Take 1 tablet by mouth every 8 hours as needed for Nausea or Vomiting 12 tablet 5 Active predniSONE (DELTASONE) 10 MG tablet 4 p.o. q. day for 3 days, 3 p.o. q. day for 3 days, 2 p.o. q. day for 3 days, one p.o. q. day for 3 days 30 tablet 2 025 Discontin ued(LIST CLEANUP) ondansetron (ZOFRAN-ODT) 4 MG disintegrating tablet Take 1 tablet by mouth 3 times daily as needed for Nausea or Vomiting 21 tablet 3 025 Discontin ued(LIST CLEANUP) buprenorphine (SUBUTEX) 8 MG SUBL SL tablet PLACE 1 TABLET UNDER THE TONGUE TWICE DAILY 3 025 Discontin ued(LIST CLEANUP) Active Problems No known active problems Encounters Date Type Department Care Team Description 09/18/2024 3:46 PM EDT - 09/18/2024 4:11 PM EDT Emergency [facility] Emergency Department [address] [place] [address] Don Jarquin MD Dehydration (Primary Dx) Discharge Disposition: Home or Self Care 09/18/2024 Travel from Last 3 Months Social History Tobacco Use Types Packs/Day Years Used Date Smoking Tobacco: Every Day E-Cigarettes Smokeless Tobacco: Never Tobacco Cessation:Ready to Q uit: Not Asked; Counseling Given: Not Answered Alcohol Use Standard Drinks/Week [...] Mass Index 27.64 09/18/2024 3:55 PM EDT Plan of Treatment Health Maintenance Due Date Last Done Comments Depression Screen 2001 Varicella vaccine (1 of 2 - 13+ 2-dose series) 2002 Hepatitis B vaccine (1 of 3 - 19+ 3-dose series) 2008 Pneumococcal 0-49 years Vaccine (1 of 2 - PCV) 2008 Pap smear 2010 Cervical cancer screen 07/20/2019 HPV (without or with Pap) 07/20/2019 DTaP/Tdap/Td vaccine (2 - Td or Tdap) 09/13/2021 09/14/2011 COVID-19 Vaccine (1 - 2023-2 5 season) 2023 Flu vaccine (Season Ended) 2024 05/26/2022 HIV screen Completed 11/23/2018 Hepatitis C screen Completed 03/13/2019, 03/13/2019, 11/23/2018 HPV vaccine Aged Out No longer eligi ble based on patient's age to complete this topic Hepatitis A vaccine Aged Out No longe r eligible based on patient's age to complete this topic Hib vaccine Aged Out No longer eligi ble based on patient's age to complete this topic Meningococcal (ACWY) vaccine Aged Out No longer eligible based on patient's age to complete this topic Meningococcal B vaccine Aged Out No l onger eligible based on patient's age to complete this topic Polio vaccine Aged Out No longer elig ible based on patient's age to complete this topic Procedures Procedure Name Priority Date/Time Associated Diagnosis Comments HEPATITIS PANEL, ACUTE Routine 03/13/2019 9:19 AM EST HIV SCREEN Routine 11/23/2018 7:07 AM EDT from Last 3 Months or Most Recently Relevant to Health Maintenance Results * (ABNORMAL) Hepatitis Panel, Acute (03/13/2019 9:19 AM EST) Hepatitis B Surface Ag REACTIVE(A) NONREACTIVE 03/13/2019 9:19 AM EST [facility] Comment: THE PRESENCE OF HBsAg INDICATES A CURRENT HEPATITIS B INFECTION. ANTI-HBc IgM WOULD HELP DIFFERENTIATE BETWEEN RECENT AND PAST INFECTION. HBeAg WOULD HELP DEFINE ACTIVE VIRAL REPLICATION AND INCREASED INFECTIVITY. POSITIVITY OF HBsAg FOR >6 MONTHS MAY SIGNAL CHRONIC INFECTION. Results reported to the appropriate Health Department TEST CONFIRMED Hepatitis C Ab REACTIVE(A) NONREACTIVE 03/13/20 9:19 AM EST [facility] Comment: The hepatitis C procedure used in our laboratory is a Chemiluminescent test specific for three recombinant HCV antigens. A negative anti-HCV result indicates that the antibodies to hepatitis C virus are not present at this time. Individuals with reactive anti-HCV should be considered infected and infectious until proven otherwise. Confirmation of all equivocal or reactive results is recommended by ordering HCV RNA by PCR. Results reported to the appropriate Health Department Hep B Core Ab, IgM NONREACTIVE NONREACTIVE 02/25 9:19 AM EST [facility] Hep A IgM NONREACTIVE NONREACTIVE 03/13/2019 9:19 AM EST [facility] 03/13/2019 9:19 AM EST 03/13/2019 9:20 AM EST Nancy Christina DAMPPROOFER - ALINING INSPECTOR IMMUNOLOGY ORDERABLES Edited Result - Final Performing Organization Address City/[facility]/ZIP Co de Phone Number [facility] [address] [place] [address], [facility] [phone] [address], [facility] [phone] * HIV Screen (11/23/2018 7:07 AM EDT) HIV Ag/Ab NONREACTIVE NONREACTIVE 11/23/2018 7:07 AM EDT [facility] Comment: No laboratory evidence of HIV infection. If acute HIV infection is suspected, consider testing for HIV-1 RNA. 11/23/2018 7:07 AM EDT 11/23/2018 7:47 AM EDT Kwabena Santiago DAMPPROOFER - PHOTO EDITOR IMMUNOLOGY ORDERABLES F inal Result [facility] [address] [place] [address], [facility] [phone] [facility] [employer] [address] [place] [address], [facility] [phone] from Last 3 Months or Most Recently Relevant to Health Maintenance Insurance [employer] Care Teams Car Repossessor Relationship Specialty Start Date End Date Juan Bello PCP - General 01/24/22
[2024-09-21 15:09] LABS: Age Gdln ACOG Testing Note (.); HPV Aptima Negative (Negative); IGP, Aptima HPV, rfx 16/18,45 Note (.)
== END 2024-09-18 19:03 | disposition home or self-care (01) ==
LOC: LAB 19:02
PROVIDERS: Visit Provider Physician Assistant
DX: Z01.419 Encounter for gynecological examination (general) (routine) without abnormal findings (principal)
CPT/HCPCS: 87624; 88175

== ENCOUNTER 2024-10-31 18:46 | Emergency (ER) | payer OTHER, SELFPAY ==
--- OUTSIDE RECORDS SUMMARY | 2021-08-05 06:16 | XMS_ITS | Continuity of Care Document ---
Author Organization [facility] Address [address] [place] [address] Phone Care Team Providers Care Butcherette Name Role Phone Robin Gaines Unavailable Unavailable Allergies, Adverse Reactions, Alerts Substance Reaction Status Criticality No Known Allergies Active No Inform ation Medications Medication Instructions Dosage Effective Dates (start - stop) Status Comments No Drug Therapy Prescribed Procedures Procedure Date Acute Detox Risk Management Director Acute Detox Risk Management Director COVID-19 Antigen Test DRUG TEST PRSMV DIR OPT OBS URINE TEST Acute Detox Risk Management Director Acute Detox Risk Management Director Acute Detox Risk Management Director Acute Detox Risk Management Director Acute Detox Risk Management Director Acute Detox Risk Management Director Acute Detox Risk Management Director Acute Detox Risk Management Director URINE TEST Acute Detox Risk Management Director Acute Detox Risk Management Director Acute Detox Risk Management Director Acute Detox Risk Management Director Acute Detox Risk Management Director Alcohol and/or drug services- Acute Deto x [...] Diagnoses Date Provider Providers Copied on Encounter [facility], [address] [place] [address], [id number] , tel: [phone] [facility] Follow-up Day 3 (chief complaint) No Information 2 Liana Kelly. [address] [place] [address], [id number], [place]. tel: [phone] [facility], [address] [place] [address], [id number] , [place] tel: [phone] [facility] Opioid dependence with withdrawalMood disorderHepatitis C 2 Liana Kelly. [address] [place], [address], [place]. tel: [phone] [facility], [address] [place] [address], [id number] , [place] tel: [phone] [facility] substance abuse (chief complaint) Opioid dependence with withdrawalMood disorderHepatitis C 2 Liana Kelly. [address] [place] [address], [id number], [place]. tel: [phone] [facility], [address] [place], [place], [id number] , [place] tel: [phone] [facility] Opioid dependence with withdrawalMood disorderHepatitis C 2 Liana Kelly. [address] [place], [address], [place]. tel: [phone] [facility], [address] [place], [place], [id number] , [place] tel: [phone] [facility] Opioid dependence with withdrawalEncounter For Screening For Covid-19Encounter for test, result negative 2 Liana Kelly. [address] [place], [address], [place]. tel: [phone] [facility], [address] [place] [address], [id number] , [place] tel: [phone] [facility] Opioid dependence with withdrawal 1 Pavlock DO Max. [address] [place], [place], [id number] , [place]. tel: [phone] [facility], [address] [place], [place], [id number] , [place] tel: [phone] [facility] Opioid dependence with withdrawal 1 Pavlock DO Max. [address] [place], [place], [id number] , [place]. tel: [phone] [facility], [address] [place] [address], [id number] , [place] tel: [phone] [facility] fentanyl dependence (chief complaint) Opioid dependence with withdrawal 1 Alex Arreguin. [address] [place], [place], [id number] , [place]. tel: [phone] [facility], [address] [place], [place], [id number] , [place] tel: [phone] [facility] Opioid dependence with withdrawalEncounter for test, result negative 1 Pavlock DO Max. [address] [place], [place], [id number] , [place]. tel: [phone] [facility], [address] [place], [place], [id number] , [place] tel: [phone] [facility] Opioid dependence with withdrawalEncounter for test, result negative 1 Pavlock DO Max. [address] [place], [place], [id number] , [place]. tel: [phone] [facility], [address] [place], [place], [id number] , [place] tel: [phone] [facility] Opioid dependence with withdrawalEncounter for test, result negative 1 Pavlock DO Max. [address] [place], [place], [id number] , [place]. tel: [phone] [facility], [address] [place], [place], [id number] , [place] tel: [phone] [facility] Opioid dependence with withdrawalEncounter for test, result negative 1 Pavlock DO Max. [address] [place], [place], [id number] , [place]. tel: [phone] [facility], [address] [place], [place], [id number] , [place] tel: [phone] [facility] Opioid dependence with withdrawalEncounter for test, result negative 1 Pavlock DO Max. [address] [place], [place], [id number] , [place]. tel: [phone] [facility], [address] [place], [place], [id number] , [place] tel: [phone] [facility] Opioid dependence with withdrawal 1 Pavlock DO Max. [address] [place], [place], [id number] , [place]. tel: [phone] [facility], [address] [place], [place], [id number] , [place] tel: [phone] [facility] Opioid dependence with withdrawal 1 Pavlock DO Max. [address] [place], [place], [id number] , [place]. tel: [phone] [facility], [address] [place], [place], [id number] , [place] tel: [phone] [facility] Opioid dependence with withdrawalEncounter for test, result negative 1 Pavlock DO Max. [address] [place], [place], [id number] , [place]. tel: [phone] [facility], [address] [place], [place], [id number] , [place] tel: [phone] [facility] fentanyl dependence (chief complaint) Opioid dependence with withdrawal 1 Alex Arreguin. [address] [place], [place], [id number] , [place]. tel: [phone] [facility], [address] [place], [place], [id number] , [place] tel: [phone] [facility] Opioid dependence with withdrawalEncounter for test, result negative 1 Pavlock DO Max. [address] [place], [place], [id number] , [place]. tel: [phone] [facility], [address] [place], [place], [id number] , [place] tel: [phone] [facility] Opioid dependence with withdrawalEncounter for test, result negative 1 Pavlock DO Max. [address] [place], [place], [id number] , [place]. tel: [phone] [facility], [address] [place], [place], [id number] , [place] tel: [phone] [facility] Opioid dependence with withdrawal 9 Pavlock DO Max. [address] [place], [place], [id number] , [place]. tel: [phone] [facility], [address] [place], [place], [id number] , [place] tel: [phone] [facility] No Information 9 Pavlock DO Max. [address] [place], [place], [id number] , [place]. tel: [phone] [facility], [address] [place], [place], [id number] , [place] tel: [phone] [facility] heroin dependence (chief complaint) Opioid dependence with withdrawal 9 Alex Arreguin. [address] [place], [place], [id number] , [place]. tel: [phone] [facility], [address] [place], [place], [id number] , [place] tel: [phone] [facility] Opioid dependence with withdrawalEncounter for test, result negative 9 Ana Hernandez. [address] [place], [place], [id number] , [place]. tel: [phone] [facility], [address] [place], [place], [id number] , [place] tel: [phone] [facility] No Information 9 Pavlock DO Max. [address] [place], [place], [id number] , [place]. tel: [phone] [facility], [address] [place], [place], [id number] , [place] tel: [phone] [facility] Opioid dependence with withdrawal 9 Pavlock DO Max. [address] [place], [place], [id number] , [place]. tel: [phone] [facility], [address] [place], [place], [id number] , [place] tel: [phone] [facility] Opioid dependence with withdrawal 9 Pavlock DO Max. [address] [place], [place], [id number] , [place]. tel: [phone] [facility], [address] [place], [place], [id number] , [place] tel: [phone] [facility] Opioid dependence with withdrawal Apr-1 0-201 9 Pavlock DO Max. [address] [place], [place], [id number] , [place]. tel: [phone] [facility], [address] [place], [place], [id number] , [place] tel: [phone] [facility] Opioid dependence with withdrawal Apr-0 9-201 9 Pavlock DO Max. [address] [place], [place], [id number] , [place]. tel: [phone] [facility], [address] [place], [place], [id number] , [place] tel: [phone] [facility] heroin dependence (chief complaint) Opioid dependence with withdrawal Apr-0 8-201 9 Alex Arreguin. [address] [place], [place], [id number] , [place]. tel: [phone] [facility], [address] [place], [place], [id number] , [place] tel: [phone] [facility] Opioid dependence with withdrawal Apr-0 8-201 9 Pavlock DO Max. [address] [place], [place], [id number] , [place]. tel: [phone] [facility], [address] [place], [place], [id number] , [place] tel: [phone] [facility] No Information Apr-0 8-201 9 Pavlock DO Max. [address] [place], [place], [id number] , [place]. tel: [phone] [facility], [address] [place], [place], [id number] , [place] tel: [phone] [facility] No Information May-0 -201 1 Lamp Yolis. [address] [place], [place], [id number] , [place]. tel: [phone] [facility], [address] [place], [place], [id number] , [place] tel: [phone] [facility] No Information 2 -201 0 Lamp Yolis. [address] [place], [place], [id number] , [place]. tel: [phone] OFFICE/OUTPA TIENT VISIT, EST [facility], [address] [place], [place], [id number] , [place] tel: [phone] [facility] No Information 2-200 9 Aarti Lau. [address] [place], [place], [id number] , [place]. tel: [phone] Family History Family Member Type Diagnosis Age At Onset Father Problem (finding) Alive and well Father Problem (finding) recovering addict Mother Problem (finding) Alive and well Immunizations Vaccine Date Status Comments Hep A (adult) administered Source: New Im munization Record Payers Payer name Insurance type Covered alliance party ID Authoriza tion(s) [employer] [place] [id number] Medicaid HMO [facility] [id number] Social History Type Description Quantity Date Captured [...]
--- OUTSIDE RECORDS SUMMARY | 2024-10-23 07:00 | XMS_ITS ---
Author Organization [facility] es Address [address] [place] [address] Care Team Providers Care Manager Diesel Name Role Phone Anayeli Fong Primary Care Provider REASON FOR VISIT MAT f/u Encounters Encounter Location Date Provider Diagnosis [facility] [address] [place] [address] 10/23/2024 Anayeli Fong Plan Of Treatment Next Appt Details Provider Name:Anayeli perkins, 11/16/2024 01:45:00 PM, [address] [place], [address], Progress Notes * LENIN ERICKSONDOB: 0 (34 yo F)Acc No.[id number]:10/23/2024 Patient: LENIN GONSALES Provider: Sharri Fong CNP :1990 A ge:34 Y S ex:Female Date:10/23/2024 Address:[facility] [address], [id number] Subjective: * Chief Complaints: * 1 . MAT f/u. * Medical History: Objective: * Vitals: Assessment: Plan: * Treatment: * Images: * Electronic signature of SHAINA Stockton on 10/31/2024 at 12:06 AM EDT Sign off status: Pending * Provider: Sharri Fong CNP Date: 10/23/2024 Generated for Printi ng/Faxing/eTransmitting on: 0 10/31/2024 12:06 AM EDT
--- OUTSIDE RECORDS SUMMARY | 2024-10-26 09:15 | XMS_ITS ---
Author Organization [facility] es Address [address] [place] [address] Care Team Providers Care Diversified Crops Farmer Name Role Phone Anayeli Fong Primary Care Provider Allergies Allergen (clinical drug ingredient) Drug/Non Drug Allergy documented on EMR Reaction Allergy Type Onset Date Status naloxone Naloxone nausea/vomiting Drug Allergy A ctive Results Component Value Reference Range Notes Urine Drug Screen Reviewed date:10/26/2024 01:53:15 PM Interpretation: Performing Lab: Notes/Report: THC pos FE neg AMP neg OPI neg MAMP neg PCP neg BAR neg BZO neg MTO neg MDMA neg OXY neg BUP pos REASON FOR VISIT MAT f/u injection Medications Medication SIG (Take, Route, Frequency, Duration) Notes Start Date End Date Status FLUoxetine HCl 10 MG 1 capsule Orally Once a day; Duration: 30 days 06/21/2024 Not-Taking Ondansetron HCl 4 MG 1 tablet Orally daily; Duration: 30 days As needed 04/24/2024 Active SEROquel 25 MG 1 tablet at bedtime Orally Once a day; Duration: 30 days 10/02/2024 Not-Taking Gabapentin 100 MG 1 capsule Orally twice a day; Duration: 30 days 07/12/2024 Active Brixadi 128 MG/0.36ML 0.36 mL Subcutaneous monthly; Duration: 21 days please send before her next OV on 11-16-24 10/26/2024 11/16/2024 Active Social History Tobacco Use: Social History Observation Description Date Details (start date - stop date) Unknown DAST-10 (2020 Edition) Question Answer Notes 1. Have you used drugs other than those required for medical reasons? Yes 2. Do you abuse more than one drug at a time? Ye s 3. Are you always able to stop using drugs when you want to? No 4. Have you had blackouts or flashbacks as a result of drug use? No 5. Do you ever feel bad or guilty about your jon g use? Yes 6. Does your spouse (or pare nts) ever complain about your involvement with drugs? Yes 7. Have you neglected your family because of you r use of drugs? Yes 8. Have you engaged in illeg al activities in order to obtain drugs? Yes 9. Have you ever experienced withdrawal symptoms (felt sick) when you stopped taking drugs? Yes 10. Have you had medical pro blems as a result of your drug use (e.g., memory loss, hepatitis, convulsions, bleeding etc.)? Yes Results: 9 Interpretation of Score: Severe level AUDIT-C (Standard) Question Answer Notes Did you have a drink containing alcohol in the p ast year? No Points 0 Interpretation Negative Tobacco Control (Standard) Question Answer Notes Tobacco use: Uses tobacco in other forms Additional Findings: Tobacco user e-cigarette Vital Signs Height 66 in 10/26/2024 Weight 157.4 lbs 10/26/2024 BMI 25.4 kg/m2 10/26/2024 Blood pressure systolic 105 mm Hg 10/27/19 Blood pressure diastolic 73 mm Hg 025 Oximetry 97 % 10/26/2024 Heart Rate 96 /min 10/26/2024 Encounters Encounter Location Date Provider Diagnosis [address] [phone] 10/26/2024 Anayeli Fong Opioid dependence , uncomplicated F11.20 and Opioid withdrawal F11.93 Assessments Encounter Date Diagnosis (ICD Code) Assessment Notes Treatment Notes Treatment Clinical Notes Section Notes 10/26/2024 Opioid dependence, uncomplicated (ICD-10 - F11.20) OUD: medication management of Opioid addiction, a chronic disease process with high likelihood of complication, including , even when in a stable state. Disease requiring ongoing medication management and evaluation Medical: refilled gabapentin and zofran MH: not currrently taking quetiapine Tobacco: declined smoking cessation Reviewed diversion control: no selling, trading or sharing medication OARRS: reviewed Medication: Brixadi 128mg FERNANDEZ Injection: tolerated well without difficulty. Bandaid applied. Educated on monitor injection site for swelling, redness or hot to touch, or develops a fever. RTC 3 weeks Patient Counseled On - Self-care - Illicit use -Medication/do sing review -Identifying triggers Summary: Patient is doing well and stable on current dose. still on probation until june 2025 Brixadi 128mg FERNANDEZ LOT #[id number] EXP [id number] given to right thigh 10/26/2024 Opioid withdrawal (ICD-10 - F11.93) 10/26/2024 Other visit conducted by HIPPA compliant with zoom video telemedicine/i n person Patient identified with name and date of Patient is located in clinic. Provider is located in home office Plan Of Treatment Medication Medication Name Sig Start Date Stop Date Notes Ondansetron HCl 4 MG 1 tablet Orally adalberto ly; Duration: 30 days 04/24/2024 Gabapentin 100 MG 1 capsule Orally twi ce a day; Duration: 30 days 07/12/2024 Brixadi 128 MG/0.36ML 0.36 mL Subcutaneo us monthly; Duration: 21 days 10/26/2024 11/16/2024 please send before her next OV on 11-16-24 Treatment Notes Assessment Notes Opioid dependence, uncomplicated OUD: medication management of Opioid addiction, a chronic disease process with high likelihood of complication, including , even when in a stable state. Disease requiring ongoing medication management and evaluation Medical: refilled gabapentin and zofran MH: not currrently taking quetiapine Tobacco: declined smoking cessation Reviewed diversion control: no selling, trading or sharing medication OARRS: reviewed Medication: Brixadi 128mg FERNANDEZ Injection: tolerated well without difficulty. Bandaid applied. Educated on monitor injection site for swelling, redness or hot to touch, or develops a fever. RTC 3 weeks Patient Counseled On - Self-care - Illicit use -Medication/dosing review -Identifying triggers Summary: Patient is doing well and stable on current dose. still on probation until june 2025 Brixadi 128mg FERNANDEZ LOT #[id number] EXP [id number] SN [id number] given to right thigh Other visit conducted by HIPPA compliant with zoom video telemedicine/in person Patient identified with name and date of Patient is located in clinic. Provider is located in home office Next Appt Details Follow Up: 3 Weeks, Reason: MAT f/u injection Provider Name:Anayeli Allison maddie, 11/16/2024 01:45:00 PM, [address] [place], [address], Progress Notes * LENIN ERICKSONDOB: 0 (34 yo F)Acc No.[id number]:10/26/2024 Patient: LENIN GONSALES Provider: Sharri Fong CNP :1990 A ge:34 Y S ex:Female Date:10/26/2024 Address:[address] [place] [address] [address], [address], [id number] Subjective: * Chief Complaints: * M AT f/u injection * HPI: D rug Use History: Denies recent use MAT - Buprenorphine Follow Up: Patient is taking Buprenorphine A s directed. yes Doses Remaining 0 . Most recent dose 1 month ago Denies urges or cravings- NO Tolerating medication well, Headaches, Most Recent UDS Results & Dates 10/26 Attendance to Treatment - Counseling/Group , Individual Counseling. yes, every Tuesday and Tuesday. M AT - COWS Assessment: Needs Assessed for Opioid Withdrawl C OWS Assesment Required,, yes. Resting Pulse Rate 9 2, 1 = Pulse rate 81-100. Sweating 1 = Subjective report of chills or flushing. Restlessness During Assessment 1 = Reports difficulty sitting still, but is able to do so. Pupil Size 0 = Pupils pinned or normal size for room light. Bone or Joint Aches 0 = Not present. Runny Nose or Tearing 4 = Nose constantly running . ? GI Upset 0 = No GI Symptoms. Tremor 0 = No tremor. Yawning 2 = Yawning three or more times during assessment.? Anxiety or Irritability 0 = None. Gooseflesh Skin 0 = Skin is smooth. Total COWS Score 9 . C onstitutional: Patient presents to office today for medical follow up and medication management for OUD. Patient states she hasnt had much sleep her 5 year old son was up all night last night. She c/o w/d symptoms today. She states she never [icked up her Quetiapine prescription she was afraid it would make her to groggy and she needs to be able to wake up for her 5 year old son. She is still on probation through [facility] and [facility] courts and needs her UDS sent for confirmation. She denies recent use of THC. D epression Screening: PHQ-2 (2015 Edition) L ittle interest or pleasure in doing things??Not at all F eeling down, depressed, or hopeless? N ot at all T otal Score 0 * ROS: C onstitutional: denies any recent illness. Ears/Nose/Throat/Neck: denies any dental pain. sensitivity Respiratory: tobacco use-vaping Gastrointestinal: denies indigestion, diarrhea, constipation, melena and vomiting. c/o nausea Genitourinary/Nephrology: c/o urgency, frequency or hesitancy. odor Endocrine: denies cold intolerance and heat intolerance. Musculoskeletal: denies chronic back pain and joint complaint. Psychiatric: c/o anxiety, depression, insomnia, increased energy, activity or agitation and denies SI/HI. Neurologic: denies dizziness or headaches Skin: denies any injection scar and rash. * Medical History: * Surgical History: D enies Past Surgical History * Hospitalization/Major Diagno stic Procedure: D enies Past Hospitalization * Family History: N o Family History documented.. * Social History: D rug/Alcohol: D AST-10 (2020 Edition) 1 . Have you used drugs other than those required for medical reasons? Y es 2 . Do you abuse more than one drug at a time??Yes 3 . Are you always able to stop using drugs when you want to? N o 4 . Have you had blackouts or flashbacks as a result of drug use? N o 5 . Do you ever feel bad or guilty about your drug use? Y es 6 . Does your spouse (or parents) ever complain about your involvement with drugs? Y es 7 . Have you neglected your family because of your use of drugs? Y es 8 . Have you engaged in illegal activities in order to obtain drugs? Y es 9 . Have you ever experienced withdrawal symptoms (felt sick) when you stopped taking drugs? Y es 1 0. Have you had medical problems as a result of your drug use (e.g., memory loss, hepatitis, convulsions, bleeding etc.)? Y es R esults: 9 I nterpretation of Score: S evere level AUDIT-C (Standard) D id you have a drink containing alcohol in the past year? N o P oints 0 I nterpretation N egative T obacco Use: T obacco Control (Standard) T obacco use: U ses tobacco in other forms A dditional Findings: Tobacco user e -cigarette * Medications: T akingOndansetron HCl 4 MG Tablet 1 tablet Orally daily As neededGabapentin 100 MG Capsule 1 capsule Orally twice a day Taking Ondansetron HCl 4 MG Tablet 1 tablet Orally daily As neededTaking Gabapentin 100 MG Capsule 1 capsule Orally twice a day Not-Taking/PRNSEROquel 25 MG Tablet 1 tablet at bedtime Orally Once a day FLUoxetine HCl 10 MG Capsule 1 capsule Orally Once a day Medication List reviewed and reconciled with the patientNot-Taking/PRN SEROquel 25 MG Tablet 1 tablet at bedtime Orally Once a day Not-Taking/PRN FLUoxetine HCl 10 MG Capsule 1 capsule Orally Once a day Medication List reviewed and reconciled with the patient * Allergies: N aloxone: nausea/vomiting - Side Effects - Criticality Lowno[Allergies Verified] Objective: * Vitals: H t: 66 in, Wt: 157.4 lbs, BMI:25.4Index, BP: 105/73 mm Hg, SaO2:97%, HR: 96 /min. * Examination: G eneral Examination: . PHYSICAL / MENTAL EXAM: . Respiratory: No evidence of acute distress Hygiene/Attention to grooming- good hygiene Orientation- A&O x4 Appearance: Appropriately dressed and groomed, good eye contact, cooperative, pleasant well developed, well nourished Behavior/Motor Activity: Normal Gait/Station: Within normal limits Speech: Normal Mood: Good Affect: Full Thought processes/Associations: Logical and goal directed Thought Content: Non-psychotic Cognition/Attention/Memory/Concentration: Alert and oriented x 4; grossly intact attention; memory-recent/remote judged adequate by interviewer Insight: Good Judgement: Good language: Within normal limits Fund of Knowledge: Adequate . Assessment: * Assessment: 1. O pioid dependence, uncomplicated - F1. (Primary) 2 . O pioid withdrawal - Plan: * Treatment: 2. O pioid withdrawal Refill Ondansetron HCl Tablet, 4 MG, 1 tablet, Orally, daily As needed, 30 days, 30 Tablet, Refills 1. 3. O thers Notes:visitconducted by HIPPA compliant with zoom video telemedicine/in person Patient identified with name and date of Patient is located in clinic. Provider is located in home office * Labs: * L ab: Urine Drug Screen (Collection Date & Time - 10/26/2024) Value Reference Range T HC pos * C OC neg * A MP neg * O PI neg * M AMP neg * P CP neg * B AR neg * B ZO neg * M TO neg * M DMA neg * O XY neg * B UP pos * Procedure Codes: 3 078F DIAST BP < 80 MM [id number] SYST BP LT 130 MM [id number] RVW MEDS BY RX/DR IN [id number] OFFICE O/P EST MOD 30-39 [id number] DRUG TEST PRSMV DIR OPT OBS, Modifiers: QW * Preventive Medicine: COUNSELING: P atient Primary Pharmacy Discussion Patient agrees to primary pharmacy being set [facility] Patient Declines: Explain Why P atient explained that location of pharmacy is a barrier Is on controlled medications * Follow Up: 3 Weeks (Reason: MAT f/u injection) * Images: * Sign off status: Completed true * Provider: Sharri Fong CNP Date: 0 10/26/2024 Generated for Zoe romo/Rudy/Benjamin on: 0 10/31/2024 05:43 PM EDT History and Physical Notes * HPI (History of Present Illness) Category Sub-Category Detail Notes Category Not es Depression Screening PHQ-2 (2015 Edition) Little interest or pleasure in doing things?: Not at all Feeling down, depressed, or hopeless?: N ot at all Total Score: 0 Constitutional Patient prese nts to office today for medical follow up and medication management for OUD. Patient states she hasnt had much sleep her 5 year old son was up all night last night. She c/o w/d symptoms today. She states she never [icked up her Quetiapine prescription she was afraid it would make her to groggy and she needs to be able to wake up for her 5 year old son. She is still on probation through [facility] and [facility] courts and needs her UDS sent for confirmation. She denies recent use of THC. Drug Use History Denies recent use MAT - Buprenorphine Follow Up: Patient is taking Buprenorphine As directed. yes Doses Remaining 0. Most recent dose 1 month ago Denies urges or cravings- NO Tolerating medication well, Headaches, Most Recent UDS Results & Dates 10/26 Attendance to Treatment - Counseling/Group , Individual Counseling. yes, every Tuesday and Tuesday MAT - COWS Assessment Resting Pulse Rate 92, 1 = Pulse rate 81-100 Sweating 1 = Subjective repor t of chills or flushing Restlessness During Assessment 1 = Repor ts difficulty sitting still, but is able to do so Pupil Size 0 = Pupils pinned or normal size for room light Bone or Joint Aches 0 = Not present Runny Nose or Tearing 4 = Nose constantl y running GI Upset 0 = No GI Symptoms Tremor 0 = No tremor Yawning 2 = Yawning three or more times during assessment Anxiety or Irritability 0 = None Gooseflesh Skin 0 = Skin is smooth Total COWS Score 9 Needs Assessed for Opioid Withdrawl COWS Assesment Required, , yes Examination Category Sub-Category Detail Notes Category Not es General Examination . PHYSICAL / MENTAL EXAM: . Respiratory: No evidence of acute distress Hygiene/Attention to grooming- good hygiene Orientation- A&O x4 Appearance: Appropriately dressed and groomed, good eye contact, cooperative, pleasant well developed, well nourished Behavior/Motor Activity: Normal Gait/Station: Within normal limits Speech: Normal Mood: Good Affect: Full Thought processes/Associations: Logical and goal directed Thought Content: Non-psychotic Cognition/Attention/Memory/Con centration: Alert and oriented x 4; grossly intact attention; memory-recent/remote judged adequate by interviewer Insight: Good Judgement: Good BH language: Within normal limits Fund of Knowledge: Adequate .
--- OUTSIDE RECORDS SUMMARY | 2024-10-31 00:07 | XMS_ITS | Encounter Summary ---
Author Organization [facility] Address [address], [address] [place] [address] Care Team Providers Care Supervisor Cab Name Role Phone Juan Bello Primary Care Provider [phone] Reason for Visit * Reason Comments Urticaria Patient states she b reaks out in hives every night during the summer, took benadryl and janelle. Encounter Details Date Type Department Care Team (Late st Contact Info) Description 10/31/2024 12:07 AM EDT - 10/31/2024 1:43 AM EDT Emergency [facility] Emergency Department [address] [place] [address] Don Jarquin MD [address] [place] [address] Urticaria (Primary Dx) Discharge Disposition: Home or Self Care Social History Tobacco Use Types Packs/Day Years Used Date Smoking Tobacco: Every Day E-Cigarettes Smokeless Tobacco: Never Alcohol Use Standard Drinks/Week Comments Not Currently 0 (1 standard drink = 0.6 oz pur e alcohol) social AUDIT-C Answer Date Recorded Q1: How often do you have a drink containing alcohol? Never 10/31/2024 Q2: How many drinks containi ng alcohol do you have on a typical day when you are drinking? Patient does not drink Q3: How often do you have si x or more drinks on one occasion? Never 10/31/2024 Interpersonal Safety Domain Source: IP Abuse Scr eening Answer Date Recorded Physical abuse Denies 10/31/2024 Verbal abuse Denies 10/31/2024 Emotional abuse Denies 10/31/2024 Financial abuse Denies 10/31/2024 Sexual abuse Denies 10/31/2024 Comments No Sex and Gender Information Value Date Recorded Sex Assigned at Not on file Legal Sex Female 1:19 PM EST Gender Identity Not on file Sexual Orientation Not on file documented as of this encounter Last Filed Vital Signs Vital Sign Reading Time Taken Comments Blood Pressure 95/63 10/31/2024 1:30 AM EDT Pulse 100 10/31/2024 12:10 AM EDT Temperature 37.1 C (98.8 F) 10/31/2024 12:10 AM EDT Respiratory Rate 18 10/31/2024 12:10 AM EDT Oxygen Saturation 99% 10/31/2024 1:30 AM EDT Inhaled Oxygen Concentration - - Weight 73 kg (161 lb) 10/31/2024 12:10 AM EDT Height 167.6 cm (5' 6 ) 10/31/2024 12:10 AM EDT Body Mass Index 25.99 10/31/2024 12:10 AM EDT documented in this encounter Functional Status documented as of this encounter Medications at Time of Discharge gabapentin (NEURONTIN) 300 MG capsule Take 1 capsule by mouth nightly as needed. predniSONE (DELTASONE) 20 MG tablet 2 tablets daily x 3 days then 1 tablet daily 10 tablet 10/31/2024 hydrOXYzine pamoate (VISTARIL) 25 MG capsule Take 1 capsule by mouth 3 times daily as needed for Itching 30 capsule 10/31/2024 11/14/2024 buprenorphine ER (BRIXADI) 96 MG/0.27ML SOSY injection Inject 0.27 mLs into the skin every 30 days ondansetron (ZOFRAN) 4 MG tablet Take 1 [...] as of this encounter Visit Diagnoses Diagnosis Urticaria- Primary Urticaria, unspecified documented in this encounter Administered Medications Inactive Administered Medications - up to 3 most recent administrations Medication Order MAR Action Action Date Dose Rate Site diphenhydrAMINE (BENADRYL) injection 25 mg 25 mg, IntraMUSCular, ONCE, 1 dose, On Tue10/31/24 at 0100, IV Push at rate not to exceed 25 mg/min. Given 10/31/2024 12:54 AM EDT 25 mg Deltoid Left methylPREDNISolone sodium succ (SOLU-MEDROL) 40 mg in sterile water 1 mL injection 40 mg, IntraMUSCular, ONCE, On Tue10/31/24 at 0100, For 1 dose, Reconstitute each 40 mg vial with 1 mL of diluent. Given 10/31/2024 12:54 AM EDT 40 mg Deltoid Right documented in this encounter Active and Recently Administered Medications Times are shown in EDT. Scheduled Medication Order 10/29/2024 10/30/2024 10/31/2024 diphenhydrAMINE (BENADRYL) injection 25 mg (COMPLETED) 25 mg, IntraMUSCular, ONCE, 1 dose, On Tue10/31/24 at 0100, IV Push at rate not to exceed 25 mg/min. 0054 (Given - Provid er: Kayley Gordon RN) methylPREDNISolone sodium succ (SOLU-MEDROL) 40 mg in sterile water 1 mL injection (COMPLETED) 40 mg, IntraMUSCular, ONCE, On Tue10/31/24 at 0100, For 1 dose, Reconstitute each 40 mg vial with 1 mL of diluent. 0054 (Given - Provid er: Kayley Gordon RN) documented in this encounter Care Teams Supervisor Cab Relationship Specialty Start Date End Date Juan Bello PCP - General 01/24/22 documented as of this encounter
--- OUTSIDE RECORDS SUMMARY | 2024-10-31 18:50 | XMS_ITS | Clinical Summary ---
Author Organization [facility] Address [address], [address] [place] [address] Care Team Providers Care Landfill Gas Collection Operator Name Role Phone Santhosh Belloory Primary Care Provider [phone] Allergies No known active allergies Medications ibuprofen (ADVIL;MOTRIN) 600 MG tablet Take 1 tablet by mouth every 6 hours as needed for Pain Active naloxone 4 MG/0.1ML LIQD nasal spray Inhale 1 spray into the lungs as needed 0 Active buprenorphine ER (BRIXADI) 96 MG/0.27ML SOSY injection Inject 0.27 mLs into the skin every 30 days Active ondansetron (ZOFRAN) 4 MG tablet Take 1 tablet by mouth every 8 hours as needed for Nausea or Vomiting 12 tablet 5 Active gabapentin (NEURONTIN) 300 MG capsule Take 1 capsule by mouth nightly as needed. Active predniSONE (DELTASONE) 20 MG tablet 2 tablets daily x 3 days then 1 tablet daily 10 tablet 5 Active hydrOXYzine pamoate (VISTARIL) 25 MG capsule Take 1 capsule by mouth 3 times daily as needed for Itching 30 capsule 5 025 Active hydrOXYzine pamoate (VISTARIL) 25 MG capsule Take 1 capsule by mouth every 8 hours as needed 5 025 Discontinued Active Problems No known active problems Encounters Date Type Department Care Team Description 10/31/2024 12:07 AM EDT - 10/31/2024 1:43 AM EDT Emergency [facility] Emergency Department [address] [place] [address] Don Jarquin MD Urticaria (Primary Dx) Discharge Disposition: Home or Self Care 10/31/2024 Travel 09/19/2024 6:02 PM EDT - 09/19/2024 6:14 PM EDT Emergency [facility] Emergency Department [address] [place] [address] Oscar Smith MD Pain, dental (Primary Dx) Discharge Disposition: Home or Self Care 09/19/2024 Travel 09/18/2024 3:46 PM EDT - 09/18/2024 4:11 PM EDT Emergency [facility] Emergency Department [address] [place] [address] Don Jarquin MD Dehydration (Primary Dx) Discharge [...] Mass Index 25.99 10/31/2024 12:10 AM EDT Plan of Treatment Health Maintenance Due [...] - 2023-2 5 season) 2023 Flu vaccine (#1) 10/26/2024 05/26/2022 HIV screen Completed 11/23/2018 Hepatitis C [...] Ag REACTIVE(A) NONREACTIVE 03/13/2019 9:19 AM EST [employer] Comment: THE PRESENCE OF HBsAg INDICATES A CURRENT HEPATITIS B INFECTION. ANTI-HBc IgM WOULD HELP DIFFERENTIATE BETWEEN RECENT AND PAST INFECTION. HBeAg WOULD HELP DEFINE ACTIVE VIRAL REPLICATION AND INCREASED INFECTIVITY. POSITIVITY OF HBsAg FOR >6 MONTHS MAY SIGNAL CHRONIC INFECTION. Results reported to the appropriate Health Department TEST CONFIRMED Hepatitis C Ab REACTIVE(A) NONREACTIVE 03/13/20 9:19 AM EST [employer] Comment: The hepatitis C procedure used in [...] IgM NONREACTIVE NONREACTIVE 02/25 9:19 AM EST [employer] Hep A IgM NONREACTIVE NONREACTIVE 03/13/2019 9:19 AM EST [employer] [facility] 03/13/2019 9:19 AM EST 03/13/2019 9:20 AM EST Nancy Christina APRN - JUAN ANTONIO IMMUNOLOGY ORDERABLES Edited Result - Final [facility] [address] [place] [address], [facility] [phone] [facility] [address] [place] [address], [facility] [phone] * HIV Screen (11/23/2018 7:07 AM EDT) HIV Ag/Ab NONREACTIVE NONREACTIVE 11/23/2018 7:07 AM EDT [employer] Comment: No laboratory evidence of HIV infection. If acute HIV infection is suspected, consider testing for HIV-1 RNA. 11/23/2018 7:07 AM EDT 11/23/2018 7:47 AM EDT Kwabena Santiago JOB INTERVIEWER - BOWLING BALL MOLDER IMMUNOLOGY ORDERABLES F inal Result [facility] [address] [place] [address], [facility] [phone] LUXA Yodio [address] [place] [address], [facility] [phone] from Last 3 Months or Most Recently Relevant to Health Maintenance Insurance [employer] Care Teams Landfill Gas Collection Operator Relationship Specialty Start Date End Date Juan Bello PCP - General 01/24/22
--- OUTSIDE RECORDS SUMMARY | 2024-10-31 18:50 | XMS_ITS | Clinical Summary ---
Author Organization [facility] Address [address] [place] [address] Care Team Providers Care Fleet Mechanic Name Role Phone Brenda Vilchis PLANT SCIENCES PROFESSOR Unavailable [phone] Allergies No known active allergies Medications Brixadi 128 MG/0.36ML solution prefilled syringe Subcutaneous for 28 Days Active methylPREDNISo lone (Medrol Dospak) 4 MG tabletsIndicat ions:Dermatiti s Follow schedule on package instructions 21 tablet 5 Active hydrOXYzine pamoate (Vistaril) 25 MG capsuleIndicat ions:Itching Take 1 capsule (25 mg) by mouth every 8 (eight) hours if needed for itching for up to 10 days 30 capsule 5 Active triamcinolone (Kenalog) 0.5 % creamIndicatio ns:Dermatitis Apply topically in the morning and in the evening and before bedtime. Do all this for 10 days. 15 g 5 10/05/19 25 Encounters Date Type Department Care Team Description 10/31/2024 Travel 09/27/2024 Abstract [facility] [address] [place] [address] [place] [address] Moises Chavira DO 09/27/2024 Orders Only [facility] [place] [address] Katalina Vega MA 09/24/2024 4:40 PM EDT Office Visit [facility] [address] [place] [id number] Emily Molina, JUAN ANTONIO Dermatitis (Primary Dx); Itching 09/24/2024 Travel 09/18/2024 1:00 PM EDT Office Visit [facility] [address] [place] [address] Shiela Jaramillo PA Well woman exam with routine gynecological exam; PCOS (polycystic ovarian syndrome) 09/18/2024 Abstract [facility] [address] [facility] [place] [address] Moises Chavira, DO 09/18/2024 External Result Encounter [facility] External Department Unsolicited Moises Chavira, DO 09/18/2024 Clinisync Result Encounter [facility] External Department Unsolicited Shiela Jaramillo PA 09/18/2024 Bamboo flowsheet [facility] [address] [place] [address] Shiela Jaramillo PA from Last 3 Months [...] Sign Reading Time Taken Comments Blood Pressure 110/78 10/31/2024 5:55 PM EDT Pulse 82 10/31/2024 5:55 PM EDT Temperature 36.4 C (97.6 F) 10/31/2024 5:55 PM EDT Respiratory Rate - - Oxygen Saturation 98% 10/31/2024 5:55 PM EDT Inhaled Oxygen Concentration - - Weight 73.7 kg (162 lb 8 oz) 09/18/2024 1:44 PM EDT Height 165.1 cm (5' 5 ) 06/28/2022 12:00 PM EDT Body Mass Index 27.04 06/28/2022 12:00 PM EDT Plan of Treatment Upcoming Encounters Date Type Department Care Team (Late st Contact Info) Description 11/07/2024 1:00 PM EDT Ancillary Procedure [facility] [address] [facility] [place] [id number] 09/24/2025 2:00 PM EDT Office Visit [facility] [address] [facility] [place] [address] Shiela Jaramillo PA [address] [place], [place] [id number] Health Maintenance Due Date Last Done Comments HPV/Cotest 07/20/2019 Influenza Vaccine (#1) 2024 05/26/2022 Cervical Cancer Screening 09/19/2027 Pap Smear 09/19/2027 09/18/2024, 06/28/2022 Procedures Procedure Name Priority Date/Time Associated Diagnosis Comments IGP,APTIMA HPV,AGE GDLN Routine 09/18/2024 1:35 PM EDT PAP SMEAR Routine 09/18/2024 12:00 AM EDT PATHOLOGY REQUEST FOR LAB YUM[facility]KO Routine 09/18/2024 12:00 AM EDT from Last 3 Months Results * IGP,APTIMA HPV,AGE GDLN (09/18/2024 1:35 PM EDT) AGE GDLN ACOG TESTING Note . [facility] Comment: TESTS RESULT FLAG UNITS REF RANGE LAB Clinician Provided Cytology Information Source.............Cervix;Endocervix No. of containers..01 ThinPrep Vial Age Dwayne Pepper... FLAG LEGEND: L-Low Normal,H-High Normal,LL-Alert Low,HH-Alert High <-Panic Low,>-Panic High,A-Abnormal,AA-Critical Abnormal Performed at: 01 =[address] [facility] [address] Valentine Scott MD, IGP, APTIMA HPV, RFX 16/18,45 Note . [facility] Comment: TESTS RESULT FLAG UNITS REF RANGE LAB DIAGNOSIS: 02 NEGATIVE FOR INTRAEPITHELIAL LESION OR MALIGNANCY. Specimen adequacy: 02 Satisfactory for evaluation. No endocervical component is identified. Performed by: 02 Italia Dorado, Cement Conveyor Operator ([facility]) . 02 Note: Note 02 The Pap smear is a screening test designed to aid in the detection of premalignant and malignant conditions of the uterine cervix. It is not a diagnostic procedure and should not be used as the sole means of detecting cervical cancer. Both false-positive and false-negative reports do occur. Test Methodology: Note 02 This liquid based ThinPrep(R) pap test was screened with the use of an image guided system. HPV Genotype Reflex Note 02 Criteria not met, HPV Genotype not performed. FLAG LEGEND: L-Low Normal,H-High Normal,LL-Alert Low,HH-Alert High <-Panic Low,>-Panic High,A-Abnormal,AA-Critical Abnormal Performed at: [address] [id number] Valentine Scott MD, HPV APTIMA Negative Negative [facility] Comment: This nucleic acid amplification test detects fourteen high- risk HPV types (16,18,31,33,35,39,45,51,52,56,58,59,66,68) without differentiation. Performed at: =[address] [id number] Marketing Assistant Retail Division: Valentine Scott MD, Phone: [phone] Performed at: [address] [id number] Marketing Assistant Retail Division: Valentine Scott MD, Phone: [phone] 09/18/2024 1:35 PM EDT 09/18/2024 9:03 PM EDT Narrative [facility] - 09/21/2024 3:09 PM EDT BRUSH-SPATULA CERVIX ENDOCERVIX us Shiela [facility] BLOOD ORDERABLES Final Resul t [facility] * PATHOLOGY REQUEST FOR LAB YUMIKO (09/18/2024 12:00 AM EDT) PATHOLOGY REQUEST FOR LAB YUMIKO 09/25/2024 8:32 AM EDT [facility] Comment:See report. Scanned copy available in EMR. Other Topography unknown / Unknown 09/18/2024 09/19/2024 1:08 PM EDT Narrative [facility] - 09/25/2024 8:32 AM EDT SKIN TAG us Moises Chavira DO LAB BLOOD ORDERABLES Final Resul t [facility] [address] [place] [address], [facility] [address] [facility] [place] [address] * Pap Smear (09/18/2024 12:00 AM EDT) Swab Cervical swab / Unknown us Shiela [facility] CYTOLOGY ORDERABLES Final Re sult EXTERNAL LAB from Last 3 Months Insurance [employer] Care Teams Fleet Mechanic Relationship Specialty Start Date End Date Brenda Vilchis NP [address] [place] [address] PCP - [facility] 12/27/23
--- OUTSIDE RECORDS SUMMARY | 2024-10-31 18:50 | XMS_ITS | Encounter Summary ---
Author Organization [facility] Address [address] [facility] [place] [address] Care Team Providers Care Transit Survey Worker Name Role Phone Brenda Vilchis HALL DIRECTOR Unavailable [phone] Encounter Details Date Type Department Care Team (Late Contact Info) Description 11/15/2023 Orders Only [facility] [address] [place] [place] [address] Brenda Santacruz LPN [address] [place] [address] Social History Tobacco Use Types Packs/Day Years [...] Department Care Team (Late Contact Info) Description 11/07/2024 1:00 PM EDT Ancillary Procedure [facility] [address] [place] [address] 09/24/2025 2:00 PM EDT Office Visit [facility] [address] [place] [address] Shiela Jaramillo PA [address] [place] [address] documented as of this encounter Procedures Procedure Name Priority Date/Time Associated Diagnosis Comments PAP SMEAR Routine 06/28/2022 12:00 AM EDT documented in this encounter Results * Pap Smear (06/28/2022 12:00 AM EDT) Swab Cervical swab / Unknown us Cait [facility] CYTOLOGY ORDERABLES Final Result EXTERNAL LAB documented in this encounter Visit Diagnoses Not on filedocumented in this encounter Care Teams Transit Survey Worker Relationship Specialty Start Date End Date Brenda Vilchis NP [address] [place] [address] PCP - [facility] 12/27/23 documented as of this encounter
--- OUTSIDE RECORDS SUMMARY | 2024-10-31 18:50 | XMS_ITS | Encounter Summary ---
Author Organization [facility] Address [address], [address] [place] [address] Care Team Providers Care Lot Porter Name Role Phone Juan Bello Primary Care Provider [phone] Encounter Details Date Type Department Care Team (Latest Contact Info) Description 10/31/2024 Travel Social History Tobacco Use Types Packs/Day [...] on filedocumented in this encounter Care Teams Lot Porter Relationship Specialty Start Date End Date Juan Bello PCP - General 01/24/22 documented as of this encounter
--- OUTSIDE RECORDS SUMMARY | 2024-10-31 18:51 | XMS_ITS | Patient Health Record ---
Author Organization [facility] es Address [address] [place] [address] Care Team Providers Care Retail Receiving Clerk Name Role Phone Anayeli Fong Primary Care Provider Rosa Francine Ragland [phone] Allergies Allergen (clinical drug ingredient) Drug/Non Drug [...] NEG MDMA NEG OXY NEG BUP POS Urine Drug Screen Reviewed date:06/21/2024 02:08:26 PM Interpretation: Performing Lab: Notes/Report: THC pos FE neg AMP neg OPI neg MAMP neg PCP neg BAR neg BZO neg MTO neg MDMA neg OXY neg BUP pos Urinalysis un-automated Reviewed date:08/31/2024 10:15:04 AM Interpretation: Performing Lab: Notes/Report: Urine-Color yellow Appearance slight cloudy Specific [place] 1.020 pH 6 Glucose neg Protein trace Occult Blood trace Bilirubin negh Urobilinogen,Semi-Qn 0.2 Nitrite, Urine neg Ketones neg WBC Esterase mod Urine Drug Screen Reviewed date:08/31/2024 10:11:01 AM Interpretation: Performing Lab: Notes/Report: THC pos FE neg AMP neg OPI neg MAMP neg PCP neg BAR neg BZO neg MTO neg MDMA neg OXY neg BUP pos GNURI - Complicated Genitour inary Infection (HTRx) [...] testing is not performed at this lab. Manager Beverage to CFU/mL equivalent thresholds were established based on studies using known CFU/mL urine specimens performed at [facility] in [place], [place]. Testing performed by [facility] ([address], [place] [address]; CLIA# [id number]; Electroneurodiagnostic Technologist Lenin Valente, PhD, [facility])). This test was developed, and its performance characteristics determined by [facility]. It has not been cleared or approved [...] - 27.778 ppm Urine Drug Screen Reviewed date:10/26/2024 01:53:15 PM [...] neg BUP pos Urine Drug Screen Reviewed date:07/12/2024 05:42:12 PM [...] NEG MDMA POS OXY NEG BUP NEG Urine Drug Screen Reviewed date:05/03/2024 03:23:36 PM Interpretation: Performing Lab: Notes/Report: THC pos FE neg AMP pos OPI neg MAMP pos PCP neg BAR neg BZO neg MTO neg MDMA pos OXY neg BUP pos Reason For Referral No Information Medications Medication [...] W/U Status Risk Notes Problem Opioid dependence (17676342) Opioid dependence, uncomplicated (F11.20) Active confirmed Problem Tobacco user (382767457) Nicotine dependence, unspecified, uncomplicated (F17.200) Active confirmed Problem Insomnia disorder related to another mental disorder (53151091) Insomnia due to other mental disorder (F51.05) Active confirmed Problem Mental disorder (60137962) Mental disorder, not otherwise specified (F99) Active confirmed Problem Moderate recurrent major depression (41641724) Moderate episode of recurrent major depressive disorder (F33.1) Active confirmed Problem Anxiety, generalized (F41.1) Active confirmed Problem Opioid withdrawal (45987662) Opioid withdrawal (F11.93) Active confirmed Vital Signs Heart Rate 96 /min 10/26/2024 Temperature 97.5 degrees Fahrenheit 08/31/2024 Oximetry 97 % 10/26/2024 Blood pressure diastolic 73 mm Hg 10/26/2024 Height 66 in 10/26/2024 Blood pressure systolic 105 mm Hg 10/26/2024 Weight 157.4 lbs 10/26/2024 BMI 25.4 kg/m2 10/26/2024 Encounters Encounter Location Date Provider Diagnosis [address] [place] [place] [address] 04/24/2024 [facility] [address] [place] [address] 06/05/2024 Anayeli Ajit Opioid dependence, uncomplicated F11.20 [facility] [address] [place] [address] 08/15/2024 Anayeli Ajit [facility] [address] [place] [address] 09/03/2024 Anayeli Ajit [facility] [address] [place] [address] 09/27/2024 Anayeli Ajit Opioid dependence, uncomplicated F11.20 [facility] [address] [place] [address] 10/12/2024 Anayeli Ajit [address] [facility] [place] [address] 09/20/2024 Francine Lee Encounter for dental examination and cleaning with abnormal findings Z01.21 ; Disturbances in tooth eruption K00.6 ; Other dental procedure status Z98.818 ; Dental caries on pit and fissure surface penetrating into dentin K02.52 and Cracked tooth K03.81 [address] [place] [facility] [place] [address] 05/03/2024 Anayeli Ajit Opioid dependence, uncomplicated F11.20 [address] [facility] [place] [address] 05/24/2024 Anayeli Ajit Opioid dependence, uncomplicated F11.20 and Anxiety, generalized F41.1 [facility] [address] [place] [address] 05/31/2024 Anayeli Ajit Opioid dependence, uncomplicated F11.20 and Opioid withdrawal F11.93 [facility] [address] [place] [address] 06/21/2024 Anayeli Ajit Opioid dependence, uncomplicated F11.20 and Moderate episode of recurrent major depressive disorder F33.1 [facility] [address] [place] [address] 07/12/2024 Anayeli Ajit Opioid dependence, uncomplicated F11.20 and Opioid withdrawal F11.93 [facility] [address] [place] [address] 08/02/2024 Anayeli Ajit Opioid dependence, uncomplicated F11.20 ; Opioid withdrawal F11.93 and Nicotine dependence, unspecified, uncomplicated F17.[address] [address] 08/31/2024 Anayeli Ajit Opioid dependence, uncomplicated F11.20 and UTI symptoms R39.9 [facility] [address] [place] [address] 10/02/2024 Anayeli Ajit Opioid dependence, uncomplicated F11.20 and Insomnia due to other mental disorder F51.[address] [address] 10/26/2024 Anayeli Ajit Opioid dependence, uncomplicated F11.20 and Opioid withdrawal F11.[address] [address] 04/24/2024 Anayeli Ajit Opioid dependence, uncomplicated F11.20 [...] right upper abdomen. Patient tolerated well. LOT# [id number], EXP 11/2025. Given by Charlie Arce LPN. [...] to patient RUQ. Patient tolerated well. LOT# [id number], EXP.12/25/2025. Given by Charlie Arce LPN. 08/02/2024 Opioid withdrawal (ICD-10 - F11.93) Pt [...] IM to RUQ. Patient tolerated well. LOT# [id number], EXP. 06/25/2026 Given by Charlie Arce LPN 08/02/2024 Opioid dependence, uncomplicated (ICD-10 - F11.20) [...] and would like to continue MAT treatment 09/20/2024 Encounter for dental examination and cleaning with abnormal findings (ICD-10 - Z01.21) 09/27/2024 Opioid dependence, uncomplicated (ICD-10 - F11.20) 10/02/2024 Opioid dependence, uncomplicated (ICD-10 - F11.20) OUD: medication management of Opioid addiction, a chronic disease process with high likelihood of complication, including , even when in a stable state. Disease requiring ongoing medication management and evaluation Medical: denies MH: c/o insomnia seroquel 25mg prescribed Tobacco: declined smoking cessation Reviewed diversion control: no selling, trading or sharing medication OARRS: reviewed Medication: Brixadi 128mg FERNANDEZ Injection: tolerated well without difficulty. Bandaid applied. Educated on monitor injection site for swelling, redness or hot to touch, or develops a fever. RTC Patient Counseled On - Self-care - Illicit use -Medication/dosing review -Identifying triggers Summary: Patient is doing well and stable on current dose Brixadi 128mg to LLQ LOt number [id number] [facility] [id number] SN [id number] CancelRx Response got Denied on 2024-10-02 13:44:02 for 'Brixadi 128 MG/0.36ML Solution Prefilled Syringe'Pharmacy Notes: Other: cancel 10/26/2024 Opioid dependence, uncomplicated (ICD-10 - F11.20) [...] until june 2025 Brixadi 128mg FERNANDEZ LOT #[id number] EXP [id number] SN [id number] given to right thigh 10/26/2024 Opioid withdrawal (ICD-10 - F11.93) 08/02/2024 Nicotine dependence, unspecified, uncomplicated (ICD-10 - F17.200) 08/31/2024 UTI symptoms (ICD-10 - R39.9) 09/20/2024 Disturbances in tooth eruption (ICD-10 - K00.6) 07/12/2024 Opioid withdrawal (ICD-10 - F11.93) 05/31/2024 Opioid withdrawal (ICD-10 - F11.93) 09/20/2024 Other dental procedure status (ICD-10 - Z98.818) 10/02/2024 Insomnia due to other mental disorder (ICD-10 - F51.05) start Seroqul 25mg QHS good sleep hygiene discussed. Avoid stimulants such as tv, electronic, exercises before bed. Relaxation techniques also discussed. pt enc to take 5mg to 10 mg melatonin. If symptoms persist will discuss prescription sleep aides 09/20/2024 Dental caries on pit and fissure surface penetrating into dentin (ICD-10 - K02.52) 09/20/2024 Cracked tooth (ICD-10 - K03.81) 04/24/2024 Other Visit conducted by HIPAA-compliant with [...] home office Brixadi 96mg to LLQ LOT [id number] exp [id number] SN [id number], Body Mass Index: Care Instructions material was [...] clinic. Provider is located in home office 10/02/2024 Other visit conducted by HIPPA compliant with zoom video telemedicine/in person Patient identified with name and date of Patient is located in clinic. Provider is located in home office 10/26/2024 Other visit conducted by HIPPA compliant with zoom video telemedicine/in person Patient identified with name and date of Patient is located in clinic. Provider is located in home office Plan Of Treatment Pending Test Test Name Order Date Urine Drug Screen w/Confirm 04/24/2024 Urine Drug Screen w/Confirm 05/03/2024 Urine Drug Screen w/Confirm 05/24/2024 Urine Drug Screen w/Confirm 07/12/2024 Urine Drug Screen 10/02/2024 Next Appt Details Provider Name:Anayeli Wallaceav perkins, 11/16/2024 01:45:00 PM, [address] [place] [address], [phone], Insurance Providers Payer Name Payer Address Payer Phone Subscriber Number Group Number Insured Name Patient Relationship to Insured Coverage Start Date Coverage End Date [facility] Medicaid [address] [place] [phone] [id number] DRE LENIN Self - patient is the insured 3 [employer] [facility] [address] [place] [phone] [id number] LENIN ERICKSON Self - patient is the insured 3 [facility] Medicaid [address] [place] [address] [phone] [id number] LENIN ERICKSON Self - patient is the insured 4 [employer] [facility] [address] [place] [address] [id number] LENIN ERICKSON Self - patient is the insured 4 [facility] [address] [place] [address] [id number] LENIN ERICKSON Self - patient is the insured 5 Dental Wrap [facility] [address] [place] [address] [phone] [id number] LENIN ERICKSON Self - patient is the insured 5 Medical (General) History Medical History History ICD Code CERVICAL CANCER Broke her back
--- OUTSIDE RECORDS SUMMARY | 2024-10-31 18:51 | XMS_ITS | Encounter Summary ---
Author Organization [facility] Address [address] [facility] [place] [address] Care Team Providers Care Seed Analyst Name Role Phone Brenda Vilchis STAVE JOINTER Unavailable [phone] Encounter Details Date Type Department Care Team (Late Contact Info) Description 09/27/2024 Abstract [facility] [address] [place] [address] Moises Chavira DO [address], [place] [address] Social History Tobacco Use Types Packs/Day Years [...] Description 11/07/2024 1:00 PM EDT Ancillary Procedure [facility] [address] [place] [address] 09/24/2025 2:00 PM EDT Office Visit [facility] [address] [place] [address] Shiela Jaramillo PA [address] [facility] [place] [address] documented as of this encounter Visit Diagnoses Not on filedocumented in this encounter Care Teams Seed Analyst Relationship Specialty Start Date End Date Brenda Vilchis NP [address] [place] [address] PCP - [facility] 12/27/23 documented as of this encounter
--- OUTSIDE RECORDS SUMMARY | 2024-10-31 18:51 | XMS_ITS | Encounter Summary ---
Author Organization [facility] Address [address] [facility] [place] [address] Care Team Providers Care Director Equipment Name Role Phone Brenda Vilchis METALSMITH APPRENTICE Unavailable [phone] Encounter Details Date Type Department Care Team (Late Contact Info) Description 09/27/2024 Orders Only [facility] [address] [facility] [address] Katalina Vega MA Social History Tobacco Use Types Packs/Day Years [...] PM EDT Ancillary Procedure [facility] [address] [place] [address] 09/24/2025 2:00 PM EDT Office Visit [facility] [address] [place] [address] Shiela Jaramillo PA [address] [place] [address] [place] [address] documented as of this encounter Procedures Procedure Name Priority Date/Time Associated Diagnosis Comments PAP SMEAR Routine 09/18/2024 12:00 AM EDT documented in this encounter Results * Pap Smear (09/18/2024 12:00 AM EDT) Swab Cervical swab / Unknown Shiela [facility] ORDER[facility]LES Final Re sult [facility] documented in this encounter Visit Diagnoses Not on filedocumented in this encounter Care Teams Director Equipment Relationship Specialty Start Date End Date Brenda Vilchis NP [address] [place] [address] PCP - [facility] 12/27/23 documented as of this encounter
--- OUTSIDE RECORDS SUMMARY | 2024-10-31 18:51 | XMS_ITS | Encounter Summary ---
Author Organization [facility] Address [address] [facility] [place] [address] Care Team Providers Care Roll Handler Name Role Phone Brenda Vilchis GOLF COURSE MECHANIC Unavailable [phone] Encounter Details Date Type Department Care Team [...] PM EDT Ancillary Procedure [facility] [address] [facility] [place] [address] 09/24/2025 2:00 PM EDT Office Visit MITESH [facility] [address] [place] [address] Shiela Jaramillo PA [address] [facility] [address] [place], [facility] documented as of this encounter Visit Diagnoses Not on filedocumented in this encounter Care Teams Roll Handler Relationship Specialty Start Date End Date Brenda Vilchis NP [address] [place] [address] PCP - [facility] 12/27/23 documented as of this encounter
--- OUTSIDE RECORDS SUMMARY | 2024-10-31 18:51 | XMS_ITS | Encounter Summary ---
Author Organization [facility] Address [address] [facility] [place] [address] Care Team Providers Care Sanitation Associate Name Role Phone Brenda Vilchis AMMONIA BOX OPERATOR Unavailable [phone] Encounter Details Date Type Department Care Team (Late Contact Info) Description 09/18/2024 Abstract [facility] [address] [place] [address] Moises Chavira DO [address], [place] [address] Social History Tobacco Use Types Packs/Day Years [...] Ancillary Procedure [facility] [address] [place] [address] 09/24/2025 2:00 PM EDT Office Visit MITESH [facility] [address] [place] [address] Shiela Jaramillo PA [address] [facility] [place] [address] documented as of this encounter Visit Diagnoses Not on filedocumented in this encounter Care Teams Sanitation Associate Relationship Specialty Start Date End Date Brenda Vilchis NP [address] [place] [address] PCP - [facility] 12/27/23 documented as of this encounter
--- OUTSIDE RECORDS SUMMARY | 2024-10-31 18:54 | XMS_ITS | CCD ---
Author Organization [facility] Care Team Providers Care Cavity Pump Operator Name Role Phone KWABENA SANTIAGO Referring Unavailable DEANGELO CRUMP Admitting Unavailable SELF, REFERRED Referring Unavailable SELF, REFERRED Primary Care Unavailable EDIN WYATT Attending Unavailable BLANCA ROSE Referring Unavailable ESTEE BURR Primary Care Unavailable UNKNOWN, PROVIDER Attending Unavailable UNKNOWN, PROVIDER Admitting Unavailable Unavailable Primary Care Provider Unavailabl LAURA Lazar Attending Unavailable WILLIAM CHRISTINA Referring Unavailable WILLIAM CHRISTINA Referring Unavailable REESE NORTH Referring Unavailable Unavailable Primary Care Provider Unavailabl Roel Dang Primary Care Provider Roel Bello Primary Care Provider [phone] Sherri PEREIRA Attending Unavailable KARASIK ., DR SEVILLA Admitting Unavailabl e KARASIK ., DR SEVILLA Attending Unavailabl e KARASIK ., DR SEVILLA Primary Care Unavailabl e KARASIK ., DR SEVILLA Consulting Unavailabl e KARASIK ., DR SEVILLA Admitting Unavailabl e KARASIK ., DR SEVILLA Attending Unavailabl e REQUEST, DR NONE LISTED Primary Care Unavaila ble KARASIK ., DR SEVILLA Consulting Unavailabl e SHERRELL KEMP Consulting Unavailable KARASIK ., DR SEVILLA Admitting Unavailabl e KARASIK ., DR SEVILLA Attending Unavailabl e REQUEST, NONE LISTED Primary Care Unavaila ble KARASIK ., DR SEVILLA Consulting Unavailabl e LOW MANN Consulting Unavailable ADELINA ALICEA Consulting Unavailable KARASIK ., DR SEVILLA Admitting Unavailabl e KARASIK ., DR SEVILLA Attending Unavailabl e KARASIK ., DR SEVILLA Primary Care Unavailabl e KARASIK ., DR SEVILLA Consulting Unavailabl e KARASIK ., DR SEVILLA Admitting Unavailabl e KARASIK ., DR SEVILLA Attending Unavailabl e KARASIK ., DR SEVILLA Primary Care Unavailyvon BELLO ., DR SEVILLA Consulting UnavailRoel Grimm Primary Care Provider [phone] Maribell Greenberg Primary Care Physician Roel Bello Primary Care Provider [phone] NO PCP, NO PCP Primary Care Unavailable JANET BOLTON Attending Unavailable Maribel Martinez Attending Unavailable Mame SERVICE UNIT OPERATOR OIL WELL, Brenda Holloway Unavailable Moises Chavira DO Attending Provider [phone] DON JARQUIN Attending Unavailable SHAUNA, ROEL Primary Care Unavailable OSCAR PERRIN Attending Unavailable SHAUNA, ROEL Primary Care Unavailable MARTA LIVE Attending Unavailable SHAUNA, ROEL Primary Care Unavailable MARTA LIVE Referring Unavailable ROEL BELLO Primary Care Unavailable SHIELA JARAMILLO Attending Unavailable GUSTABO MEIER Attending Unavailable Moises Chavira Attending Unavailable Moises Chavira Admitting Unavailable Medications Current Medications Medication Drug Class(es) Dates Sig (Normalized) Sig (Original) Tylenol (2 sources) Start: 06-17-2019 Tylenol Refill s(s) 0 Start Date: 06/17/19 Status: Ordered Repeat number: 1 Start: 06-17-2019 Tylenol Refill s(s) 0 Start Date: 06/17/19 Status: Ordered acetaminophen 325 mg / butalbital 50 mg / caffeine 40 mg oral tablet (4 sources) Barbiturate, Central Nervous System Stimulant, Methylxanthine Start: 07-09-2020 take 1 tablet by mouth every four hours for headache APAP/butalbital/caffeine 325 mg-50 mg-40 mg Tab 1 tab(s), Oral, q4hr for headache, 12 tab(s), Refill(s) 0, [facility], 168, cm, 07/09/20 11:51:00 EDT, Height/Length Dosing, 64, kg, 07/09/20 11:51:00 EDT, Weight Dosing Start Date: 07/09/20 Status: Ordered Quantity: 12.0 Unit: tab(s) Repeat number: 1 Start: 06-24-2018 take 1 capsule by [facility] every four hours for headache APAP/butalbital/caffeine 300 mg-50 mg-40 mg oral capsule 1 cap(s), Oral, q4hr for headache, 42 cap(s), Refill(s) 0 Start Date: 06/24/18 Status: Ordered Quantity: 42.0 Unit: cap(s) Repeat number: 1 amoxicillin 875 mg / clavulanate 125 mg oral tablet (2 sources) Penicillin-class Antibacterial Start: 09-19-2024 End: 09-29-2024 take 1 tablet by mouth twice daily amoxicillin-clavulanate (AUGMENTIN) 875-125 MG per tablet Take 1 tablet by mouth 2 times daily for 10 days 20 tablet 09/19/2024 09/29/2024 Active Start: 09-13-2024 End: 09-23-2024 take 1 tablet by mouth every twelve hours Augmentin 875 mg oral tablet = 1 tab(s), Oral, q12hr, X 10 day(s), # 20 tab(s), Refills(s) 0, Pharmacy: [facility], 162, cm, 09/13/24 15:14:00 EDT, Height/Length Dosing, 75, kg, 09/13/24 15:14:00 EDT, Weight Dosing Start Date: 09/13/24 Stop Date: 09/23/24 Status: Ordered Quantity: 20.0 Unit: tab(s) Repeat number: 1 Brixadi 128 MG/0.36ML solution prefilled syringe (6 sources) Brixadi 128 MG/0.36ML solution prefilled syringe Subcutaneous for 28 Days Active brompheniramine maleate 0.4 mg/ml / dextromethorphan hydrobromide 2 mg/ml / pseudoephedrine hydrochloride 6 mg/ml oral solution (2 sources) alpha-Adrenergic Agonist, Uncompetitive E-lqdjyy-O-aspartate Receptor Antagonist, Sigma-1 Agonist Start: 12-15-19 21 take 5 mL by mouth four times daily Bromfed DM oral syrup 5 mL, Oral, QID for cold symptoms, 200 mL, Refill(s) 0 Start Date: 12/14/20 Status: Ordered Quantity: 200.0 Unit: mL Repeat number: 1 buprenorphine ER (BRIXADI) 96 MG/0.27ML SOSY injection (3 sources) buprenorphine ER (BRIXADI) 96 MG/0.27ML SOSY injection Inject 0.27 mLs into the skin every 30 days Active buprenorphine ER (BRIXADI) 96 MG/0.27ML SOSY injection Inject 0.27 mLs into the skin every 30 days. Max Daily Amount: 96 mg Active doxycycline hyclate 100 mg oral tablet (1 source) Tetracycline-class Drug Start: 01-20-2021 take 1 tablet by mouth twice daily fluconazole 150 mg oral tablet (1 source) Azole Antifungal Start: 03-02-2019 End: 03-02-2019 take 1 tablet by mouth once fluconazole (DIFLUCAN) 150 MG tablet Take 1 tablet by mouth once for 1 dose 1 tablet 0 03/02/2019 03/02/2019 Active gabapentin 300 mg oral capsule (1 source) Anti-epileptic Agent take 1 capsule by mouth once daily as needed gabapentin (NEURONTIN) 300 MG capsule Take 1 capsule by mouth nightly as needed. Active hydrOXYzine pamoate 25 mg oral capsule (4 sources) Antihistamine Start: 10-31-2024 End: 11-14-2024 take 1 capsule by mouth three times daily as needed hydrOXYzine pamoate (VISTARIL) 25 MG capsule Take 1 capsule by mouth 3 times daily as needed for Itching 30 capsule 10/31/2024 11/14/2024 Active Start: 09-24-2024 End: 10-31-2024 take 1 capsule by mouth every eight hours as needed hydrOXYzine pamoate (VISTARIL) 25 MG capsule Take 1 capsule by mouth every 8 hours as needed 09/24/2024 10/31/2024 Discontinued ibuprofen 600 mg oral tablet (12 sources) Nonsteroidal Anti-inflammatory Drug take 1 tablet by mouth every six hours as needed for pain ibuprofen (ADVIL;MOTRIN) 600 MG tablet Take 1 tablet by mouth every 6 hours as needed for Pain Active methylPREDNISolone (2 sources) Corticosteroid Start : 09-24 methylPREDNISolone (Medrol Dospak) 4 MG tablets Indications: Dermatitis Follow schedule on package instructions 21 tablet 09/24/2024 Active MiraLax 3350 Oral Pwdr for Recon 249 gram (2 sources) Start : 05-20 MiraLax 3350 Oral Pwdr for Recon 249 gram 17 gram, Oral, Daily, # 255 gram, Refills(s) 0, Pharmacy: [facility], 168, cm, 04/24/20 17:59:00 EST, Height/Length Dosing, 64.2, kg, 04/24/20 17:59:00 EST, Weight Dosing Start Date: 05/20/20 Status: Ordered Quantity: 255.0 Unit: g Repeat number: 1 Start: 05-20-2020 MiraLax 3350 O ral Pwdr for Recon 249 gram 17 gram, Oral, Daily, # 255 gram, Refills(s) 0, Pharmacy: [facility], 168, cm, 04/24/20 17:59:00 EST, Height/Length Dosing, 64.2, kg, 04/24/20 17:59:00 EST, Weight Dosing Start Date: 05/20/20 Status: Ordered naloxone hydrochloride 40 mg/ml nasal spray (6 sources) Opioid Antagonist Start: 08-16-2019 naloxone 4 MG/0.1ML LIQD nasal spray Inhale 1 spray into the lungs as needed 08/16/2019 Active nitrofurantoin, macrocrystals 25 mg / nitrofurantoin, monohydrate 75 mg oral capsule (1 source) Nitrofuran Antibacterial Start: 03-02-2019 End: 03-07-2019 take 1 capsule by mouth twice daily nitrofurantoin, macrocrystal-mono hydrate, (MACROBID) 100 MG capsule Take 1 capsule by mouth 2 times daily for 5 days 10 capsule 0 03/02/2019 03/07/2019 Active ondansetron 4 mg oral tablet (10 sources) Serotonin-3 Receptor Antagonist Start: 09-18-2024 take 1 tablet by mouth every eight hours as needed for nausea ondansetron (ZOFRAN) 4 MG tablet Take 1 tablet by mouth every 8 hours as needed for Nausea or Vomiting 12 tablet 09/18/2024 Active Start: 04-25-2022 ondansetron (Z OFRAN) injection 4 mg Start: 04-25-2022 End: 09-18-2024 take 1 tablet by mouth three times daily as needed for nausea ondansetron (ZOFRAN-ODT) 4 MG disintegrating tablet Take 1 tablet by mouth 3 times daily as needed for Nausea or Vomiting 21 tablet 04/25/2022 09/18/2024 Discontinued (LIST CLEANUP) Start: 03-01-2022 End: 04-25-2022 take 1 tablet by mouth every eight hours as needed for nausea ondansetron (ZOFRAN) 4 MG tablet Take 1 tablet by mouth every 8 hours as needed for Nausea or Vomiting 12 tablet 0 03/01/2022 04/25/2022 Discontinued (Therapy completed) predniSONE 20 mg oral tablet (8 sources) Start: 10-31-2024 predniSONE (DE LTASONE) 20 MG tablet 2 tablets daily x 3 days then 1 tablet daily 10 tablet 10/31/2024 Active Start: 01-24-2022 End: 09-18-2024 take 4 tablets by mouth once daily, then take 3 tablets by mouth once daily, then take 2 tablets by mouth once daily, then take 1 tablet by mouth once daily predniSONE (DELTASONE) 10 MG tablet 4 p.o. q. day for 3 days, 3 p.o. q. day for 3 days, 2 p.o. q. day for 3 days, one p.o. q. day for 3 days 30 tablet 01/24/2022 09/18/2024 Discontinued (LIST CLEANUP) Start: 01-24-2022 End: 01-24-2022 predniSONE (DELTASONE) table t 60 mg Multivitamins with Vitamin B Complex, Vitamin C, Minerals and L-Methylfolate oral capsule (2 sources) Start: 06-17-2019 Multi vitamins with Vitamin B Complex, Vitamin C, Minerals and L-Methylfolate oral capsule 1 cap(s), Oral, Daily, 30 cap(s), Refill(s) 0 Start Date: 06/17/19 Status: Ordered Quantity: 30.0 Unit: cap(s) Repeat number: 1 Start: 06-17-2019 Multi vitamins with Vitamin B Complex, Vitamin C, Minerals and L-Methylfolate oral capsule 1 cap(s), Oral, Daily, 30 cap(s), Refill(s) 0 Start Date: 06/17/19 Status: Ordered PrePlus oral tablet (2 sources) Start: 06-17-2019 PrePlus oral t ablet Refills(s) 0 Start Date: 06/17/19 Status: Ordered Repeat number: 1 Start: 06-17-2019 PrePlus oral t ablet Refills(s) 0 Start Date: 06/17/19 Status: Ordered Zofran ODT 4 mg Tab-Dis (4 sources) Start: 07-09-2020 take 1 tablet by mouth every eight hours Zofran ODT 4 mg Tab-Dis 4 mg = 1 tab(s), Oral, q8hr, # 10 tab(s), Refills(s) 0, Pharmacy: [facility], 168, cm, 07/09/20 11:51:00 EDT, Height/Length Dosing, 64, kg, 07/09/20 11:51:00 EDT, Weight Dosing Start Date: 07/09/20 Status: Ordered Quantity: 10.0 Unit: tab(s) Repeat number: 1 Start: 07-09-2020 take 1 tablet by monica th every eight hours Zofran ODT 4 mg Tab-Dis 4 mg = 1 tab(s), Oral, q8hr, # 10 tab(s), Refills(s) 0, Pharmacy: [facility], 168, cm, 07/09/20 11:51:00 EDT, Height/Length Dosing, 64, kg, 07/09/20 11:51:00 EDT, Weight Dosing Start Date: 07/09/20 Status: Ordered Start: 06-24-2018 take 1 tablet by monica th every six hours Zofran ODT 4 mg Tab-Dis 4 mg = 1 tab(s), Oral, q6hr, # 10 tab(s), Refills(s) 0 Start Date: 06/24/18 Status: Ordered Quantity: 10.0 Unit: tab(s) Repeat number: 1 Start: 06-24-2018 take 1 tablet by monica th every six hours Zofran ODT 4 mg Tab-Dis 4 mg = 1 tab(s), Oral, q6hr, # 10 tab(s), Refills(s) 0 Start Date: 06/24/18 Status: Ordered Completed/Discontinued Medications Medication Drug Class(es) Dates Sig (Normalized) Sig (Original) acetaminophen 325 mg / oxyCODONE hydrochloride 5 mg oral tablet (1 source) Opioid Agonist Start: 01-20-2018 End: 01-25-2018 take 1 tablet by mouth four times daily as needed for pain Oxycodone-Acetamino phen (Percocet) 5-325 mg tablet Discontinued 1 TAB PO Four times daily as needed for pain 12 30January 20, 2018 January 24, 2018 12:00am January 25, 2018 12:01am [id number] 200 actuat albuterol 0.09 mg/actuat metered dose inhaler (2 sources) beta2-Adrenergic Agonist Start: 12-14-2020 take 1 dose by inhalation four times daily Proventil HFA 90 mcg/inh Aerosol 2 puff(s), Inhalation, QID, 1 EA, Refill(s) 0 Start Date: 12/14/20 Status: Ordered Quantity: 1.0 Unit: EA Repeat number: 1 buprenorphine 8 mg sublingual tablet (7 sources) Partial Opioid Agonist Start: 07-31-2022 End: 09-18-2024 buprenorphine (SUBUTEX) 8 MG SUBL SL tablet PLACE 1 TABLET UNDER THE TONGUE TWICE DAILY 07/31/2022 09/18/2024 Discontinued (LIST CLEANUP) End: 09-27-2022 buprenorphine (SUBUTEX) 2 MG SUBL SL tablet Place 1 tablet under the tongue daily. 0 09/27/2022 Discontinued 1 ml diphenhydrAMINE hydrochloride 50 mg/ml cartridge (4 sources) Histamine-1 Receptor Antagonist Start: 10-31-2024 End: 10-31-2024 25 mg, IntraMUSCular, ONCE, 1 dose, On Tue10/31/24 at 0100, IV Push at rate not to exceed 25 mg/min. Start: 01-24-2022 End: 02-03-2022 take 1 capsule by mouth every six hours as needed diphenhydrAMINE (BENADRYL) 50 MG capsule Take 1 capsule by mouth every 6 hours as needed for Itching 20 capsule 0 01/24/2022 02/03/2022 Active Start: 01-24-2022 End: 01-24-2022 diphenhydrAMINE (BENADRYL) t ablet 50 mg End: 01-24-2022 take 1 tablet by mouth every six hours as needed diphenhydrAMINE (BENADRYL) 25 MG tablet Take 25 mg by mouth every 6 hours as needed for Itching 0 01/24/2022 Discontinued (LIST CLEANUP) iopamidol (ISOVUE-370) 76 % injection 100 mL (1 source) Start: 09-27-2022 End: 09-28-2022 iopamidol (ISOVUE-370) 76 % injection 100 mL methylPREDNISolone sodium succ (SOLU-MEDROL) 40 mg in sterile water 1 mL injection (1 source) Start: 10-31-2024 End: 10-31-2024 inject 1 mL by intramuscular injection once 40 mg, IntraMUSCular, ONCE, On Tue10/31/24 at 0100, For 1 dose, Reconstitute each 40 mg vial with 1 mL of diluent. metroNIDAZOLE 0.0075 mg/mg vaginal gel (1 source) Nitroimidazole Antimicrobial Start: 06-02-2022 End: 09-27-2022 metroNIDAZOLE (METROGEL VAGINAL) 0.75 % vaginal gel 1 vaginal suppository nightly for 5 days. 5 each 0 06/02/2022 09/27/2022 Discontinued (LIST CLEANUP) naproxen 500 mg oral tablet (5 sources) Nonsteroidal Anti-inflammatory Drug Start: 01-20-2018 End: 01-20-2021 take 1 tablet by mouth twice daily naproxen 500 mg Tab 500 mg = 1 tab(s), Oral, BID, Take one tab by mouth two times a day, # 14 tab(s), Refills(s) 0, Pharmacy: [facility], 168, cm, 04/24/20 17:59:00 EST, Height/Length Dosing, 64.2, kg, 04/24/20 17:59:00 EST, Weight Dosing Start Date: 05/20/20 Status: Ordered Quantity: 14.0 Unit: tab(s) Repeat number: 1 2 ml orphenadrine citrate 30 mg/ml injection (1 source) Muscle Relaxant Start: 03-02-2019 End: 03-02-2019 orphenadrine (NORFLEX) injection 60 mg promethazine hydrochloride 25 mg rectal suppository (2 sources) Phenothiazine Start: 07-09-2020 Phenergan 25 mg Supp 25 mg = 1 supp, Rectal, q6hr, PRN as needed for nausea, Insert one per rectum every six hours as needed for nausea and vomiting, # 6 EA, Refills(s) 0, Pharmacy: [facility], 168, cm, 07/09/20 11:51:00 EDT, Height/Length Dosing, 64, kg, 07/09/20 11:51:00 EDT, Weight Dosing Start Date: 07/09/20 Status: Ordered Quantity: 6.0 Unit: EA Repeat number: 1 50 ml sodium chloride 9 mg/ml injection (1 source) Start: 04-25-2022 End: 04-25-2022 0.9 % sodium chloride bolus tetracaine hydrochloride 5 mg/ml ophthalmic solution (1 source) Marta Local Anesthetic Start: 09-27-2022 End: 09-27-2022 tetracaine (TETRAVISC) 0.5 % ophthalmic solution 1 drop 1 ml triamcinolone acetonide 40 mg/ml prefilled syringe (6 sources) Corticosteroid Start: 09-24-2024 End: 09-24-2024 triamcinolone acetonide (Kenalog-40) injection 40 mg Start: 09-24-2024 End: 09-24-2024 triamcinolone acetonide (Kenalog-40) injection 40 mg Start: 09-24-2024 End: 09-24-2024 inject 40 mg by intramuscular injection once 40 mg, Intramuscular, Once, On Tue09/24/24 at 1745, For 1 dose Start: 09-24-2024 End: 09-24-2024 inject 40 mg by intramuscular injection once 40 mg, Intramuscular, Once, On Tue09/24/24 at 1745, For 1 dose Start: 09-24-2024 End: 10-04-2024 triamcinolone (Kenalog) 0.5 % cream Indications: Dermatitis Apply topically in the morning and in the evening and before bedtime. Do all this for 10 days. 15 g 09/24/2024 10/04/2024 Active Problems Active Problems Problem Classification Problem Date Documented Date Episodic/Chronic Administrative/social admission (1 source) Patient encounter status; Translations: [Persons encountering health services in other specified circumstances] Onset: 06-30-2023 Episodic Allergic reactions (4 sources) Urticaria; Translations: [Urticaria, unspecified] Episodic Cancer of cervix (5 sources) High grade squamous intraepithelial lesion on cytologic smear of cervix (HGSIL); Translations: [Carcinoma in situ of cervix, unspecified] Onset: 12-14-2021 Episodic Disorders of teeth and jaw (3 sources) Periapical abscess; Translations: [Periapical abscess without sinus] Onset: 09-13-2024 Episodic Fluid and electrolyte disorders (2 sources) Dehydration; Translations: [Dehydration] Onset: 09-18-2024 09-18-2024 Episodic Headache; including migraine (2 sources) Migraine 06-23-2018 Chronic Hepatitis (1 source) Chronic viral hepatitis C; Translations: [CHRONIC VIRAL HEPATITIS C] Onset: 12-16-2021 Chronic Nausea and vomiting (3 sources) Nausea; Translations: [Nausea] Onset: 05-17-2024 Episodic Other endocrine disorders (2 sources) Polycystic ovary syndrome; Translations: [Polycystic ovarian syndrome] 09-18-2024 Chronic Other eye disorders (1 source) Anisocoria; 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 Other female genital disorders (1 source) Personal history of other diseases of the female genital tract; Translations: [PERSONAL HX OTH DZ FE GENITAL TRACT] Onset: 07-02-2022 Episodic Other inflammatory condition of skin (2 sources) Itching ; Translations: [Pruritus, unspecified] 09-24-2024 Episodic Other nutritional; endocrine; and metabolic disorders (2 sources) Overweight in adulthood with body mass index of 25 or more but less than 30; Translations: [Body mass index (BMI) 28.0-28.9, adult] Onset: 09-13-2024 Episodic Other nutritional; endocrine; and metabolic disorders (2 sources) Overweight; Translations: [Overweight] Onset: 09-13-2024 Episodic Other screening for suspected conditions (not mental disorders or infectious disease) (4 sources) Encounter for screening for malignant neoplasm of cervix; Translations: [ENC SCREENING MALIG NEOPLASM CERV] Onset: 04-05-2022 Episodic Skin and subcutaneous tissue infections (1 source) Cellulitis of right hand; Translations: [Cellulitis of right upper limb] 01-20-2021 Episodic Substance-related disorders (7 sources) Nicotine dependence, cigarettes, uncomplicated; Translations: [Psychoactive substance abuse] Onset: 12-16-2021 Chronic Comment on above: Added secondary to d ocumentation in Social History. Substance-related disorders (1 source) Opioid use, unspecified with withdrawal; Translations: [Opioid use, unspecified with withdrawal] Onset: 05-17-2024 Episodic Unclassified (1 source) CONTACT W/AND (SUSP) EXPOS COVID-19; Translations: [CONTACT W/AND (SUSP) EXPOS COVID-19] Onset: 12-13-2021 Unclassified (2 sources) Patient encounter status 06-30-2023 Unclassified (1 source) EMS Onset: 05-17-2024 Urinary tract infections (1 source) Urinary tract infectious disease; Translations: [Urinary tract infection without hematuria, site unspecified] Episodic Past or Other Problems Problem Classification Problem Date Documented Date Episodic/Chronic Cardiac dysrhythmias (3 sources) Palpitations; Translations: [Palpitations] Onset: 02-04-2024 02-04-2024 Episodic Deficiency and other anemia (2 sources) Anemia, unspecified; Translations: [ANEMIA UNSPECIFIED] Onset: 12-13-2021 Episodic Immunizations and screening for infectious disease (1 source) Encounter for screening for human papillomavirus (HPV); Translations: [ENC SCREENING HUMAN PAPILLOMAVIRUS] Onset: 10-30-2021 Episodic Unclassified (4 sources) Onset: 06-21-2008 Resolved: 09-13-2011 10-03-2014 Results Test Name Value Interpretation Reference Range Facility PATHOLOGY REQUEST FOR LAB CO RPon 09-25-2024 PATHOLOGY REQUEST FOR LAB [facility] Comment on above: See report. Scanned copy available in EMR. [facility] Health[facility] e IGP,APTIMA HPV,AGE GDLNon AGE GDLN ACOG TESTING Note . [facility] Comment on above: TESTS RESULT FLAG UN ITS REF RANGE LAB Clinician Provided Cytology Information Source.............Cervix;Endocervix No. of containers..01 ThinPrep Vial Age Algo ACOG Shantelle... FLAG LEGEND: L-Low Normal,H-High Normal,LL-Alert Low,HH-Alert High <-Panic Low,>-Panic High,A-Abnormal,AA-Critical Abnormal Performed at: [address] [place] [address] Valentine Scott MD, HPV APTIMA Negative Negative [facility] Comment on above: This nucleic acid am plification test detects fourteen high- risk HPV types (16,18,31,33,35,39,45,51,52,56,58,59,66,68) without differentiation. Performed at: = - [address] [id number] Cna Hha: Valentine Scott MD, Phone: [phone] Performed at: - [address], [place] [id number] Cna Hha: Valentien Scott MD, Phone: [phone] IGP, APTIMA HPV, RFX 16/18,45 Note . [facility] Comment on above: TESTS RESULT FLAG UN ITS REF RANGE LAB DIAGNOSIS: 02 NEGATIVE FOR INTRAEPITHELIAL LESION OR MALIGNANCY. Specimen adequacy: 02 Satisfactory for evaluation. No endocervical component is identified. Performed by: 02 Italia Dorado, Customer Support Agent ([facility]) . 02 Note: Note 02 The Pap [...] <-Panic Low,>-Panic High,A-Abnormal,AA-Critical Abnormal Performed at: 02 [address] [facility] [address] [address] Valentine Scott MD, BRUSH-SPATULA CERVIX ENDOCERVIX [facility] Pathology Request for Lab Co rpon 09-18-2024 Pathology Request for Lab Yumiko Normal [facility] Comment on above: Order Comment: SKIN TAG Result Comment: See report. Scanned copy available in EMR. PERFORMED BY: [place] [address] PATHOLOGIST REPAIRER RECREATIONAL VEHICLE IRMA PADILLA M.D. Performed By: #### P ATH TO [facility] #### [address] Ambulatory Visit Summaryon 0 09-13-2024 Ambulatory Visit Summary Ambulatory Visit Summary DRE FRANCE A :1990 Visit Date:09/13/2024 Ambulatory Visit Instructions Your Diagnosis Dental infection Your Care Team Attending Physician - Juan PATEL, Maribel Khan Primary Care Physician - Dionicio MSN, LONGWALL SHEARER OPERATOR-MARKING MACHINE TENDER, Maribell Montes This Is Your Medications List APAP/butalbital/caff eine (APAP/butalbital/caf feine 300 mg-50 mg-40 mg oral capsule) APAP/butalbital/caff eine (APAP/butalbital/caf feine 325 mg-50 mg-40 mg Tab) acetaminophen (Tylenol) albuterol (Proventil HFA 90 mcg/inh Aerosol) amoxicillin-clavulan ate (Augmentin 875 mg oral tablet) brompheniramine/dext romethorphan/PSE (Bromfed DM oral syrup) multivitamin, (PrePlus oral tablet) multivitamin, ( Multivitamins with Vitamin B Complex, Vitamin C, Minerals and L-Methylfolate oral capsule) naproxen (Naprosyn 500 mg Tab) naproxen (naproxen 500 mg Tab) ondansetron (Zofran ODT 4 mg Tab-Dis) ondansetron (Zofran ODT 4 mg Tab-Dis) polyethylene glycol 3350 (MiraLax 3350 Oral Pwdr for Recon 249 gram) promethazine (Phenergan 25 mg Supp) Procedures Performed LEEP (Loop electrosurgical excision procedure) of cervix (09/13/2020), Denies. Discharge Vitals Heart Rate (Peripheral) 90 Respiratory Rate 16 Blood Pressure 110/72 Height 162 cm Height 64 in Weight 75 kg Weight 165.347 lb BMI 28.58 What to do next You Need to Schedule the Following Appointments Follow Up with Dionicio CHEN, LONGWALL SHEARER OPERATOR-MARKING MACHINE TENDER, Maribell Montes When: Within 1 to 2 weeks, only if needed Where: [address] [place] [address] Medications What How Much When Instructions New amoxicillin-clavulan ate (Augmentin 875 mg oral tablet) 1 Tablets By Mouth Every 12 hours Duration: 10 Days Pickup at [facility] 1985 Unchanged acetaminophen (Tylenol) Unchanged albuterol (Proventil HFA 90 mcg/ inh Aerosol) 2 Puffs Inhalation 4 times a day Unchanged APAP/ butalbital/ caffeine (APAP/ butalbital/ caffeine 300 mg-50 mg-40 mg oral capsule) 1 Capsules By Mouth Every 4 hours as needed for for headache Unchanged APAP/ butalbital/ caffeine (APAP/ butalbital/ caffeine 325 mg-50 mg-40 mg Tab) 1 Tablets By Mouth Every 4 hours as needed for for headache Unchanged brompheniramine/ dextromethorphan/ PSE (Bromfed DM oral syrup) 5 Milliliter By Mouth 4 times a day as needed for for cold symptoms Unchanged multivitamin, ( Multivitamins with Vitamin B Complex, Vitamin C, Minerals and L-Methylfolate oral capsule) 1 Capsules By Mouth Every day Unchanged multivitamin, (PrePlus oral tablet) Unchanged naproxen (Naprosyn 500 mg Tab) 1 Tablets By Mouth 2 times a day as needed for for pain Unchanged naproxen (naproxen 500 mg Tab) 1 Tablets By Mouth 2 times a day Take one tab by mouth two times a day Unchanged ondansetron (Zofran ODT 4 mg Tab-Dis) 1 Tablets By Mouth Every 8 hours Unchanged ondansetron (Zofran ODT 4 mg Tab-Dis) 1 Tablets By Mouth Every 6 hours Unchanged polyethylene glycol 3350 (MiraLax 3350 Oral Pwdr for Recon 249 gram) 17 Gram By Mouth Every day Unchanged promethazine (Phenergan 25 mg Supp) 1 Suppositories By rectum Every 6 hours as needed for as needed for nausea Insert one per rectum every six hours as needed for nausea and vomiting Pharmacy Information [facility] 1986: [address] [place], [place] [phone] Allergies No Known Allergies Problems Ongoing - Any problem that you are currently receiving treatment for. Establishing care with new doctor, encounter for Smoker Substance abuse Historical - Any problem that you are no longer receiving treatment for. Migraine Patient Survey You may receive a survey via text or e-mail asking about your office visit. Please share your experience with us by completing your survey. We appreciate your feedback and thank you for choosing us for your care. Education Materials Dental Pain Dental pain is often a sign that something is wrong with your teeth or gums. It is also something that can occur following dental treatment. If you have dental pain, it is important to contact your dental care provider, especially if the cause of the pain has not been determined. Dental pain may be of varying intensity and can be caused by many things, including: ??? Tooth decay (cavities or caries). Cavities are caused by bacteria that produce acids that irritate the nerve of your tooth, making it sensitive to air and hot or cold temperatures. This eventually causes discomfort or pain. ??? Abscess or infection. Once the bacteria reach the inner part of the tooth (pulp), a bacterial infection (dental abscess) can occur. Pus typically collects at the end of the root of a tooth. ??? Injury. ??? A crack in the tooth. ??? Gum recession exposing the root, and possibly the nerves, of a tooth. ??? Gum (periodontal)disease . ??? Abnormal grinding or clench (more content not included)... Normal [facility] Family Medicine Office/Clini c Noteon 09-13-2024 Family Medicine Office/Clinic Note Family Medicine Office/Clinic Note Chief Complaint Patient presents today for tooth ache. Patient states having a broken wisdom tooth. The patient complains of discomfort and irritation from a cracked wisdom tooth with signs of infection. History of Present Illness ACUTE ENCOUNTER ONLY The patient is a 34-year-old female presenting with a dental infection related to her right upper wisdom tooth. The issue began two days ago when the patient noticed a crack in her wisdom tooth, which subsequently led to discomfort and irritation. The patient describes the sensation as a stabbing pain in the side of her cheek, and upon examination with a dental mirror, she observed pus around the tooth. The patient has a dental appointment scheduled for next and has no known allergies to antibiotics. She has been prescribed Augmentin, a penicillin-type antibiotic, to manage the infection until her dental appointment. The patient is advised to take the antibiotic twice daily with food and probiotics to mitigate potential gastrointestinal side effects. Review of Systems PHQ Score Initial Depression Screen Score: 0 SCORE See HPI otherwise negative. Physical Exam Vitals & Measurements HR: 90(Peripheral) RR: 16 BP: 110/72 SpO2: 97% HT: 162 cm HT: 64 in WT: 75 kg WT: 165.347 lb BMI: 28.58 Constitutional: Well-groomed, well-nourished, no signs of acute distress. HEENT: Head normocephalic, sclera is clear. Visible infection with pus around the wisdom tooth, no lymphadenopathy noted; gumline is erythematous around R upper molars Cardiothoracic: Heart rate and rhythm is regular strong, normal S1 and S2. No murmurs, rubs, or bruits auscultated. No peripheral edema, peripheral pulses +2 Respiratory: Lung sounds are clear throughout, respirations regular nonlabored. Abdomen/GI: Abdomen soft nondistended. Musculoskeletal: Gait is steady, full range of motion. Integument: No rashes or lesions noted to the exposed skin. Psychiatric: Alert and oriented x 3, pleasant, no mood changes. Assessment/Plan 1. Dental infection (K04.7: Periapical abscess without sinus) The patient is prescribed Augmentin, a penicillin-type antibiotic, to manage the dental infection until her dental appointment next . She is advised to take the medication twice daily with food and probiotics to prevent gastrointestinal side effects. Ordered: Body Mass Index (BMI) documented 3008F Current tobacco smoker 1034F Depression Screening Negative 3352F Most recent diastolic blood pressure <80 mm Hg 3078F Systolic BP <130 mm Hg (Most Recent) 3074F 2. BMI 28.0-28.9,adult (Z68.28: Body mass index [BMI] 28.0-28.9, adult) The standard range for ages 18 and older is >=18.5 and < 25 kg/m2. Your BMI today was above this range, this falls in the overweight to obese category and there are medical benefits to weight loss. We can offer counselling, referral, and/or medical support in addressing this problem. Your BMI and weight management will be followed at subsequent visits. Ordered: Body Mass Index (BMI) documented 3008F Current tobacco smoker 1034F Depression Screening Negative 3352F Most recent diastolic blood pressure <80 mm Hg 3078F Systolic BP <130 mm Hg (Most Recent) 3074F 3. Over weight (E66.3: Overweight) See #2 Ordered: Body Mass Index (BMI) documented 3008F Current tobacco smoker 1034F Depression Screening Negative 3352F Most recent diastolic blood pressure <80 mm Hg 3078F Systolic BP <130 mm Hg (Most Recent) 3074F Orders: amoxicillin-clavulan ate, = 1 tab(s), Oral, q12hr, X 10 day(s), # 20 tab(s), Refills(s) 0, Pharmacy: [facility] 1986, 162, cm, 09/13/24 15:14:00 EDT, Height/Length Dosing, 75, kg, 09/13/24 15:14:00 EDT, Weight Dosing This note was created by the assist of a speech-recognition program although the intention is to generate a document that actually reflects the content of the visit, no guarantees can be provided that every mistake has been identified and corrected by editing. Follow-up With When Contact Information Dionicio CHEN, [employer] OPERATOR-Maribell GALO Within 1 to 2 weeks, only if needed [address] [place] [address] Additional Instructions: Patient Education Dental Pain Problem List/Past Medical History Ongoing BMI 28.0-28.9,adult Establishing care with new doctor, encounter for Over weight Smoker Substance abuse Historical Migraine Procedure/Surgical History LEEP (Loop electrosurgical excision procedure) of cervix (09/13/2020), Denies. Medications APAP/butalbital/caff eine 300 mg-50 mg-40 mg oral capsule, 1 cap(s), Oral, q4hr, PRN, Not taking APAP/butalbital/caff eine 325 mg-50 mg-40 mg Tab, 1 tab(s), Oral, q4hr, PRN, Not taking Augmentin 875 mg oral tablet, 1 tab(s), Oral, q12hr Bromfed DM oral syrup, 5 mL, Oral, QID, PRN, Not taking MiraLax 3350 Oral Pwdr for Recon 249 gram, 17 gm, Oral, Daily Naprosyn 500 mg Tab, 500 mg= 1 tab(s), Oral, BID, PRN na (more content not included)... Normal [facility] Comment on above: Result Comment: Elec tronically Signed By: Juan PATEL, Maribel Khan\.br\Date and Time Signed: 09/13/24 15:43 EDT CBC AND AUTO DIFFon 05-17-19 ABSOLUTE BASOPHIL 0.0 X10E9/L Normal 0.0-0.2 [facility] Comment on above: Performed By: #### C LISA CMP, 3040-3 #### [facility] ([id number]) [address] [place] [address] 93561 ABSOLUTE NEUTROPHIL 10.1 X10E9/L High 1.5-6.6 [facility] Comment on above: Performed By: #### C LISA, CMP, 3040-3 #### [facility] ([id number]) [address] [place] [address]82 Basophils/100 WBC (Bld) 0.1 % Normal [facility] Comment on above: Performed By: #### C LISA, CMP, 3040-3 #### [facility] ([id number]) [address] [place] [address] 93729 Eosinophils (Bld) [#/Vol] 0.0 10*3/uL Normal 0.0-0.4 [facility] Comment on above: Performed By: #### Angel GONZALEZ CMP, 3039-05 #### [facility] ([id number]) [address] [place] [address] 88562 Eosinophils/100 WBC (Bld) 0.0 % Normal [facility] Comment on above: Performed By: #### Angel GONZALEZ CMP, 3039-05 #### [facility] ([id number]) [address] [place] [address] 94277 Erythrocyte distribution width (RBC) [Ratio] 13.1 % Normal 11.5-15.0 [facility] Comment on above: Performed By: #### Angel GONZALEZ CMP, 3039-05 #### [facility] ([id number]) [address] [place] [address] 07324 Hematocrit (Bld) [Volume fraction] 39.8 % Normal 35-47 [facility] Comment on above: Performed By: #### Angel GONZALEZ [facility], 3039-05 #### [facility] ([id number]) [address] [place] [address] 82548 Hemoglobin (Bld) [Mass/Vol] 13.7 g/dL Normal 11.7-15.5 [facility] Comment on above: Performed By: #### Angel GONZALEZ CMP, 3039-05 #### [facility] ([id number]) [address] [place] [address] 23598 Lymphocytes (Bld) [#/Vol] 0.8 10*3/uL Low 1.0-3.5 [facility] Comment on above: Performed By: #### Angel GONZALEZ CMP, 3039-05 #### [facility] ([id number]) [address] [place] [address] 17662 Lymphocytes/100 WBC (Bld) 7.0 % Normal [facility] Comment on above: Performed By: #### Angel GONZALEZ CMP, 3039-05 #### [facility] ([id number]) [address] [place] [address] 12824 MCH (RBC) [Entitic mass] 29.0 pg Normal 27-34 [facility] Comment on above: Performed By: #### Angel GONZALEZ CMP, 3039-05 #### [facility] ([id number]) [address] [place] [address] 78215 MCHC (RBC) [Mass/Vol] 34.5 g/dL Normal 32-36 [facility] Comment on above: Performed By: #### Angel GONZALEZ CMP, 3039-05 #### [facility] ([id number]) [address] [place] [address] 98707 MCV (RBC) [Entitic vol] 84 fL Normal 80-100 [facility] Comment on above: Performed By: #### Angel GONZALEZ CMP, 3039-05 #### [facility] ([id number]) [address] [place] [address] 45509 Monocytes (Bld) [#/Vol] 0.6 10*3/uL Normal 0-0.9 [facility] Comment on above: Performed By: #### Angel GONZALEZ CMP, 3039-05 #### [facility] ([id number]) [address] [place] [address] 49047 Monocytes/100 WBC (Bld) 4.9 % Normal [facility] Comment on above: Performed By: #### Angel GONZALEZ CMP, 3039-05 #### [facility] ([id number]) [address] [place] [address] 03346 Neutrophils/100 WBC (Bld) 88.0 % Normal [facility] Comment on above: Performed By: #### Angel GONZALEZ CMP, 3039-05 #### [facility] ([id number]) [address] [place] [address] 29572 Platelet mean volume (Bld) [Entitic vol] 9.5 fL Normal 7-12 [facility] Comment on above: Performed By: #### Angel GONZALEZ, CMP, 3040-3 #### [facility] ([id number]) [address] [place] [address] 48918 Platelets (Bld) [#/Vol] 227 10*3/uL Normal 150-450 [facility] Comment on above: Performed By: #### Angel GONZALEZ, CMP, 3040-3 #### [facility] ([id number]) [address] [place] [address] 28486 RBC COUNT 4.73 X10E12/L Normal 3.80-5.20 [facility] Comment on above: Performed By: #### Angel GONZALEZ, CMP, 3039-3 #### [facility] ([id number]) [address] [place] [address] 43737 WBC (Bld) [#/Vol] 11.5 10*3/uL High 4.0-11.0 [facility] Comment on above: Performed By: #### Angel BCA, CMP, 3040-3 #### [facility] ([id number]) [address] [place] [address] 53587 COMPREHENSIVE METABOLIC PANE Jong 05-17-2024 Albumin [Mass/Vol] 4.3 g/dL Normal 3.2-5.3 [facility] Comment on above: Performed By: #### Angel BCA, CMP, 3040-3 #### [facility] ([id number]) [address] [place] [address] 32093 ALP [Catalytic activity/Vol] 62 U/L Normal 39-130 [facility] Comment on above: Performed By: #### Angel BCA, CMP, 0-3 #### [facility] ([id number]) [address] [place] [address] 61686 ALT [Catalytic activity/Vol] 15 U/L Normal 0-31 [facility] Comment on above: Performed By: #### Angel GONZALEZ CMP, 3039-3 #### [facility] ([id number]) [address] [place] [address] 52848 Anion gap [Moles/Vol] 9 mmol/L Normal 5-15 [facility] Comment on above: Performed By: #### Angel GONZALEZ CMP, 3039-3 #### [facility] ([id number]) [address] [place] [address] 70138 AST [Catalytic activity/Vol] 19 U/L Normal 0-41 [facility] Comment on above: Performed By: #### Angel GONZALEZ CMP, 3 #### [facility] ([id number]) [address] [place] [address] [place] [address] Bilirubin [Mass/Vol] 1.2 mg/dL Normal 0.3-1.2 [facility] Comment on above: Performed By: #### Angel GONZALEZ CMP, 3 #### [facility] ([id number]) [address] [place] [address] 23838 Calcium [Mass/Vol] 8.9 mg/dL Normal 8.5-10.5 [facility] Comment on above: Performed By: #### Angel GONZALEZ CMP, 3039-3 #### [facility] ([id number]) [address] [place] [address] [place] [address] Chloride [Moles/Vol] 106 mmol/L Normal 98-109 [facility] Comment on above: Performed By: #### Angel GONZALEZ CMP, 3039-3 #### [facility] ([id number]) [address] [place] [address] 90591 CO2 [Moles/Vol] 20 mmol/L Low 22-32 [facility] Comment on above: Performed By: #### C PRANAV GONZALEZ, 03 #### [facility] ([id number]) [address] [place] [address] 31578 Creatinine [Mass/Vol] 0.62 mg/dL Normal 0.40-1.00 [facility] Comment on above: Result Comment: METH OD TRACEABLE TO IDMS STANDARD Performed By: #### C PRANAV GONZALEZ, 3 #### [facility] ([id number]) [address] [place] [address] 89693 eGFR (CKD-EPI) NON-RACE DEPENDENT >90 Normal >59 [facility] Comment on above: Result Comment: Reported eGFR is based on the CKD-EPI 2020 equation that does not use a race coefficient. Performed By: #### C PRANAV GONZALEZ, 3 #### [facility] ([id number]) [address] [place] [address] 87400 Glucose [Mass/Vol] 111 mg/dL High 65-99 [facility] Comment on above: Performed By: #### C LISA [facility], 3039-05 #### [facility] ([id number]) [address] [place] [address] 24542 Potassium [Moles/Vol] 3.4 mmol/L Low 3.5-5.0 [facility] Comment on above: Performed By: #### C PRANAV GONZALEZ, 3 #### [facility] ([id number]) [address] [place] [address] 73105 Protein [Mass/Vol] 7.6 g/dL Normal 6.0-8.0 [facility] Comment on above: Performed By: #### C PRANAV GONZALEZ, 3039-05 #### [facility] ([id number]) [address] [place] [address] 81939 Sodium [Moles/Vol] 135 mmol/L Normal 134-146 [facility] Comment on above: Performed By: #### C BCA, CMP, 3040-3 #### [facility] ([id number]) [address] [place] [address] 36922 Urea nitrogen [Mass/Vol] 15 mg/dL Normal 5-23 [facility] Comment on above: Performed By: #### C BCA, CMP, 3040-3 #### [facility] ([id number]) [address] [place] [address] 08456 LIPASEon 05-17-2024 Lipase [Catalytic activity/Vol] 26 U/L Normal 17-40 [facility] Comment on above: Performed By: #### C LISA, CMP, 3040-3 #### [facility] ([id number]) [address] [place] [address] 11224 BMPon 02-04-2024 Anion gap [Moles/Vol] 10 mmol/L 9 - 17 mmol/L [facility] Calcium [Mass/Vol] 9.4 mg/dL 8.6 - 10. 4 mg/dL [facility] Chloride [Moles/Vol] 103 mmol/L 98 - 107 mmol/L [facility] CO2 [Moles/Vol] 26 mmol/L 20 - 31 mmol/L [facility] [employer] Creatinine [Mass/Vol] 0.7 mg/dL 0.5 - 0.9 mg/dL [facility] [employer] Est, Glom Filt Rate - PINF [facility] AIS [facility] Comment on above: These results are not intended for use in patients <18 years of age. eGFR results are calculated without a race factor using the 2020 CKD-EPI equation. Careful clinical correlation is recommended, particularly when comparing to results calculated using previous equations. The CKD-EPI equation is less accurate in patients with extremes of muscle mass, extra-renal metabolism of creatine, excessive creatine ingestion, or following therapy that affects renal tubular secretion. Glucose [Mass/Vol] 85 mg/dL 70 - 99 mg/dL [employer] Potassium [Moles/Vol] 4.0 mmol/L 3.7 - 5.3 mmol/L [facility] Sodium [Moles/Vol] 139 mmol/L 135 - 144 mmol/L [facility] Urea nitrogen [Mass/Vol] 13 mg/dL 6 - 20 mg/dL [facility] Urea nitrogen/Creatinine [Mass ratio] 19 mg/mg 9 - 20 [facility] Basic Metabolic Profon 02-03 Anion gap [Moles/Vol] 10 mmol/L Normal 9-17 [facility] Comment on above: Performed By: #### C DP, HCG, TROPI, TSHX, DIME, BMP #### [facility] [address] [place], [place] [id number] Cna Hha: Javan Murdock MD BUN/CRE Ratio 19 Normal 9- [facility] Comment on above: Performed By: #### C DP, HCG, TROPI, TSHX, DIME, BMP #### [facility] [address] [place] [address] Cna Hha: Javan Murdock MD Calcium [Mass/Vol] 9.4 mg/dL Normal 8.6-10.4 [facility] Comment on above: Performed By: #### C DP, HCG, TROPI, TSHX, DIME, BMP #### [facility] [address] [place] [address] Cna Hha: Javan Murdock MD Chloride [Moles/Vol] 103 mmol/L Normal 98-107 [facility] Comment on above: Performed By: #### C DP, HCG, TROPI, TSHX, DIME, BMP #### [facility] [address] [place], [place] [id number] Cna Hha: Javan Murdock MD CO2 [Moles/Vol] 26 mmol/L Normal 20-31 [facility] Comment on above: Performed By: #### C DP, HCG, TROPI, TSHX, DIME, BMP #### [facility] [address] [place] [address] Cna Hha: Javan Murdock MD Creatinine [Mass/Vol] 0.7 mg/dL Normal 0.5-0.9 [facility] Comment on above: Performed By: #### C DP, HCG, TROPI, TSHX, DIME, BMP #### [facility] [address] [place] [id number] Cna Hha: Javan Murdock MD GFR/1.73 sq M.predicted among non-blacks MDRD (S/P/Bld) [Vol rate/Area] mL/min/{1.73_m2} Normal >60 [facility] Comment on above: Result Comment: These results are not intended for use in patients <18 years of age. eGFR results are calculated without a race factor using the 2020 CKD-EPI equation. Careful clinical correlation is recommended, particularly when comparing to results calculated using previous equations. The CKD-EPI equation is less accurate in patients with extremes of muscle mass, extra-renal metabolism of creatine, excessive creatine ingestion, or following therapy that affects renal tubular secretion. Performed By: #### C DP, HCG, TROPI, TSHX, DIME, BMP #### [facility] [address] [place] [address] Cna Hha: Javan Murdock MD Glucose [Mass/Vol] 85 mg/dL Normal 70-99 [facility] Comment on above: Performed By: #### C DP, HCG, TROPI, TSHX, DIME, BMP #### [facility] [address] [place] [id number] Cna Hha: Javan Murdock MD Potassium [Moles/Vol] 4.0 mmol/L Normal 3.7-5.3 [facility] Comment on above: Performed By: #### C DP, HCG, TROPI, TSHX, DIME, BMP #### [facility] [address] [place] [address] Cna Hha: Javan Murdock MD Sodium [Moles/Vol] 139 mmol/L Normal 135-144 [facility] Comment on above: Performed By: #### C DP, HCG, TROPI, TSHX, DIME, BMP #### [facility] [address] [place] [address] Cna Hha: Javan Murdock MD Urea nitrogen [Mass/Vol] 13 mg/dL Normal 6-20 [facility] Comment on above: Performed By: #### C DP, HCG, TROPI, TSHX, DIME, BMP #### [facility] [address] [place] [address] Cna Hha: Javan Murdock MD CBC with Auto Differentialon 02-04-2024 Basophils (Bld) [#/Vol] 0.00 10*3/uL [facility] Basophils/100 WBC (Bld) 0 % 0 - 2 % [facility] Eosinophils (Bld) [#/Vol] 0.00 10*3/uL [facility] Eosinophils/100 WBC (Bld) 0 % 0 - 5 % [facility] Erythrocyte distribution width (RBC) [Ratio] 11.6 % Low 12.1 - 15.2 % [facility] Hematocrit (Bld) [Volume fraction] 38.5 % 36.0 - 46.0 % [facility] Hemoglobin (Bld) [Mass/Vol] 13.2 g/dL 12.0 - 16.0 g/dL [facility] Immature granulocytes (Bld) [#/Vol] 0.01 10*3/uL [facility] Immature granulocytes/100 WBC (Bld) 0 % 0 - 5 % [facility] Interpretation and review of laboratory results Abnormal [facility] Lymphocytes/100 WBC (Bld) 22 % 15 - 40 % [facility] Lymphocytes/100 WBC (Bld) 1.76 % [facility] MCH (RBC) [Entitic mass] 29.5 pg 26.0 - 34.0 pg [facility] MCHC (RBC) [Mass/Vol] 34.3 g/dL 31.0 - 37.0 g/dL [facility] MCV (RBC) [Entitic vol] 85.9 fL 80.0 - 100.0 fL [facility] Monocytes/100 WBC (Bld) 8 % 4 - 8 % [facility] Monocytes/100 WBC (Bld) 0.64 % [facility] Neutrophils/100 WBC (Bld) 70 % 47 - 75 % [facility] Platelet mean volume (Bld) [Entitic vol] 10.9 fL 6.0 - 12.0 fL [facility] Platelets (Bld) [#/Vol] 215 10*3/uL [facility] RBC (Bld) [#/Vol] 4.48 10*6/uL 4.00 - 5.2 0 m/uL [facility] Segmented neutrophils/100 WBC (Bld) 5.47 % [facility] WBC other (Bld) [#/Vol] 7.9 [facility] CBC with Diffon 02-04-2024 Abs. Basophil 0.00 k/uL Normal 0.00-0.20 [facility] Comment on above: Performed By: #### C DP, HCG, TROPI, TSHX, DIME, BMP #### [facility] [address] [place] [address] Cna Hha: Javan Murdock MD Abs.Imm.Granulocyte 0.01 k/uL Normal 0.00-0.30 [facility] Comment on above: Performed By: #### C DP, HCG, TROPI, TSHX, DIME, BMP #### [facility] [address] [place] [address] Cna Hha: Javan Murdock MD Abs.Neutrophil (Seg) 5.47 k/uL Normal 2.5-7.0 [facility] Comment on above: Performed By: #### C DP, HCG, TROPI, TSHX, DIME, BMP #### [facility] [address] [place] [address] Cna Hha: Javan Murdock MD Basophils/100 WBC (Bld) 0 % Normal 0-2 [facility] Comment on above: Performed By: #### C DP, HCG, TROPI, TSHX, DIME, BMP #### [facility] [address] [place] [id number] Cna Hha: Javan Murdock MD Eosinophils (Bld) [#/Vol] 0.00 10*3/uL Normal 0.00-0.40 [facility] Comment on above: Performed By: #### C DP, HCG, TROPI, TSHX, DIME, BMP #### [facility] [address] [place] [id number] Cna Hha: Javan Murdock MD Eosinophils/100 WBC (Bld) 0 % Normal 0-5 [facility] Comment on above: Performed By: #### C DP, HCG, TROPI, TSHX, DIME, BMP #### [facility] [address] [place] [address] Cna Hha: Javan Murdock MD Erythrocyte distribution width (RBC) [Ratio] 11.6 % Low 12.1-15.2 [facility] Comment on above: Performed By: #### C DP, HCG, TROPI, TSHX, DIME, BMP #### [facility] [address] [place] [id number] Cna Hha: Javan Murdock MD Hematocrit (Bld) [Volume fraction] 38.5 % Normal 36.0-46.0 [facility] Comment on above: Performed By: #### C DP, HCG, TROPI, TSHX, DIME, BMP #### [facility] [address] [place] [id number] Cna Hha: Javan Murdock MD Hemoglobin (Bld) [Mass/Vol] 13.2 g/dL Normal 12.0-16.0 [facility] Comment on above: Performed By: #### C DP, HCG, TROPI, TSHX, DIME, BMP #### [facility] [address] [place] [id number] Cna Hha: Javan Murdock MD Immature granulocytes/100 WBC (Bld) 0 % Normal 0-5 [facility] Comment on above: Performed By: #### C DP, HCG, TROPI, TSHX, DIME, BMP #### [facility] [address] [place] [address] Cna Hha: Javan Murdock MD Lymphocytes (Bld) [#/Vol] 1.76 10*3/uL Normal 1.00-4.80 [facility] Comment on above: Performed By: #### C DP, HCG, TROPI, TSHX, DIME, BMP #### [facility] [address] [place] [address] Cna Hha: Javan Murdock MD Lymphocytes/100 WBC (Bld) 22 % Normal 15-40 [facility] Comment on above: Performed By: #### C DP, HCG, TROPI, TSHX, DIME, BMP #### [facility] [address] [place] [address] Cna Hha: Javan Murdock MD MCH (RBC) [Entitic mass] 29.5 pg Normal 26.0-34.0 [facility] Comment on above: Performed By: #### C DP, HCG, TROPI, TSHX, DIME, BMP #### [facility] [address] [place] [address] Cna Hha: Javan Murdock MD MCHC (RBC) [Mass/Vol] 34.3 g/dL Normal 31.0-37.0 [facility] Comment on above: Performed By: #### C DP, HCG, TROPI, TSHX, DIME, BMP #### [facility] [address] [place] [address] Cna Hha: Javan Murdock MD MCV (RBC) [Entitic vol] 85.9 fL Normal 80.0-100.0 [facility] Comment on above: Performed By: #### C DP, HCG, TROPI, TSHX, DIME, BMP #### [facility] [address] [place] [address] Cna Hha: Javan Murdock MD Monocytes (Bld) [#/Vol] 0.64 10*3/uL Normal 0.00-1.00 [facility] Comment on above: Performed By: #### C DP, HCG, TROPI, TSHX, DIME, BMP #### [facility] [address] [place] [id number] Cna Hha: Javan Murdock MD Monocytes/100 WBC (Bld) 8 % Normal 4-8 [facility] Comment on above: Performed By: #### C DP, HCG, TROPI, TSHX, DIME, BMP #### [facility] [address] [place] [id number] Cna Hha: Javan Murdock MD Neutrophil (Seg) 70 % Normal 47-75 [facility] Comment on above: Performed By: #### C DP, HCG, TROPI, TSHX, DIME, BMP #### [facility] [address] [place] [id number] Cna Hha: Javan Murdock MD Platelet mean volume (Bld) [Entitic vol] 10.9 fL Normal 6.0-12.0 [facility] Comment on above: Performed By: #### C DP, HCG, TROPI, TSHX, DIME, BMP #### [facility] [address] [place] [address] Cna Hha: Javan Murdock MD Platelets (Bld) [#/Vol] 215 10*3/uL Normal 140-450 [facility] Comment on above: Performed By: #### C DP, HCG, TROPI, TSHX, DIME, BMP #### [facility] [address] [place] [address] Cna Hha: Javan Murdock MD RBC (Bld) [#/Vol] 4.48 10*6/uL Normal 4.00-5.20 [facility] Comment on above: Performed By: #### C DP, HCG, TROPI, TSHX, DIME, BMP #### [facility] [address] [place] [address] Cna Hha: Javan Murdock MD WBC (Bld) [#/Vol] 7.9 10*3/uL Normal 3.5-11.0 [facility] Comment on above: Performed By: #### C DP, HCG, TROPI, TSHX, DIME, BMP #### [facility] [address] [place] [address] Cna Hha: Javan Murdock MD D-Dimer Teston 02-04-2024 D-Dimer Test 0.42 ug/mL FEU Normal 0.00-0.59 [facility] Comment on above: Result Comment: When combined with a low clinical probability, a D dimer value of <0.50 ug/mL FEU is considered negative for DVT and PE (negative predictive value of 98%, sensitivity of 97%). If this test is not being used to help rule out DVT and PE, then the following reference range should be utilized: 0.00 - 0.59 ug/mL FEU. The D-Dimer assay is intended for use as an aid in the diagnosis of venous thromboembolism (DVT and PE) and the results should be interpreted in conjunction with the patient's medical history, clinical presentation, and other findings. Elevated levels of D-dimer activity can be seen in any state of coagulation activation and is not recommended in patients with therapeutic dose anticoagulant therapy for >24 hours, fibrinolytic therapy within the previous 7 days, trauma or surgery within the previous 4 weeks, disseminated malignancies, aortic aneurysm, sepsis, severe infections, pneumonia, severe skin infections, liver cirrhosis, advanced age, coronary disease, diabetes, and . A very low percentage of patients with DVT may yield D-dimer results below the cutoff of 0.5 ug/mL FEU. This is known to be more prevalent in patients with distal DVT. Performed By: #### C DP, HCG, TROPI, TSHX, DIME, BMP #### [facility] [address] [place] [address] Cna Hha: Javan Murdock MD D-Dimer, Quantitativeon Fibrin D-dimer FEU (PPP) [Mass/Vol] 0.42 [facility] Comment on above: When combined with a low clinical probability, a D dimer value of <0.50 ug/mL FEU is considered negative for DVT and PE (negative predictive value of 98%, sensitivity of 97%). If this test is not being used to help rule out DVT and PE, then the following reference range should be utilized: 0.00 - 0.59 ug/mL FEU. The D-Dimer assay is intended for use as an aid in the diagnosis of venous thromboembolism (DVT and PE) and the results should be interpreted in conjunction with the patient's medical history, clinical presentation, and other findings. Elevated levels of D-dimer activity can be seen in any state of coagulation activation and is not recommended in patients with therapeutic dose anticoagulant therapy for >24 hours, fibrinolytic therapy within the previous 7 days, trauma or surgery within the previous 4 weeks, disseminated malignancies, aortic aneurysm, sepsis, severe infections, pneumonia, severe skin infections, liver cirrhosis, advanced age, coronary disease, diabetes, and . A very low percentage of patients with DVT may yield D-dimer results below the cutoff of 0.5 ug/mL FEU. This is known to be more prevalent in patients with distal DVT. [facility] HCG Qualitative, Serumon HCG ( test) Ql Negative NEGATIVE [facility] Comment on above: Specimens with hCG l evels near the threshold of the test (25 mIU/mL) may give a negative or indeterminate result. In such cases, another test should be performed with a new specimen in 48-72 hours. If early is suspected clinically in this setting, correlation with quantitative serum b-hCG level is suggested. [employer] has confirmed the use of plasma for this test. This has not been cleared or approved by the U.S. Food and Drug Administration. The FDA has determined that such clearance is not necessary. [facility] HCG Screen, Bloodon 02-04-20 24 HCG Screen, Blood Negative Normal NEG [facility] Comment on above: Result Comment: Spec imens with hCG levels near the threshold of the test (25 mIU/mL) may give a negative or indeterminate result. In such cases, another test should be performed with a new specimen in 48-72 hours. If early is suspected clinically in this setting, correlation with quantitative serum b-hCG level is suggested. [facility] has confirmed the use of plasma for this test. This has not been cleared or approved by the U.S. Food and Drug Administration. The FDA has determined that such clearance is not necessary. Performed By: #### C DP, HCG, TROPI, TSHX, DIME, BMP #### [facility] [address] [place] [address] Cna Hha: Javan Murdock MD No Panel Informationon 02-03 [facility] TSH w/reflex to FT4on 2023 Thyroid Stim. Horm. 1.19 uIU/mL Normal 0.30-5.00 [facility] Comment on above: Performed By: #### C DP, HCG, TROPI, TSHX, DIME, BMP #### [facility] [address] [place] [address] Cna Hha: Javan Murdock MD TSH with Reflexon 02-04-2024 TSH Qn 1.19 m[IU]/L [facility] Troponinon 02-04-2024 Troponin I.cardiac High sensitivity method [Mass/Vol] ng/L 0 - 14 ng/L [facility] Comment on above: High Sensitivity Tro ponin values cannot be compared with other Troponin methodologies. [facility] Troponin, High Sens <6 Normal 0-14 [facility] Comment on above: Result Comment: High Sensitivity Troponin values cannot be compared with other Troponin methodologies. Performed By: #### C DP, HCG, TROPI, TSHX, DIME, BMP #### [facility] [address] [place] [address] Cna Hha: Javan Murdock MD XR CHEST PORTABLEon 02-04-20 24 XR CHEST PORTABLE EXAM: XR CHEST PORTABLE HISTORY: palpatations/CP COMPARISON: None. TECHNIQUE: One view of the chest was obtained. FINDINGS: The cardiac silhouette is normal in size. The lungs are clear. There is no significant pneumothorax or pleural effusion. No acute osseous abnormality is seen. IMPRESSION: 1. No acute cardiopulmonary abnormality. Interpreted by: Jatinder Persaud MD Signed by: Jatinder Persaud MD 02/04/24 Final result Normal [facility] Basic Metabolic Panelon 07-0 Anion gap [Moles/Vol] 6 mmol/L Low 9 - 17 mmol/L [employer] Calcium [Mass/Vol] 9.0 mg/dL 8.6 - 10. 4 mg/dL [facility] Chloride [Moles/Vol] 99 mmol/L 98 - 107 mmol/L [facility] CO2 [Moles/Vol] 28 mmol/L 20 - 31 mmol/L [facility] [employer] Creatinine [Mass/Vol] 0.59 mg/dL 0.50 - 0.90 mg/dL [facility] GFR/1.73 sq M.predicted MDRD (S/P/Bld) [Vol rate/Area] - PINF [facility] [employer] Comment on above: These results are not intended for use in patients <18 years of age. eGFR results are calculated without a race factor using the 2020 CKD-EPI equation. Careful clinical correlation is recommended, particularly when comparing to results calculated using previous equations. The CKD-EPI equation is less accurate in patients with extremes of muscle mass, extra-renal metabolism of creatine, excessive creatine ingestion, or following therapy that affects renal tubular secretion. Glucose [Mass/Vol] 81 mg/dL 70 - 99 mg/dL [facility] Interpretation and review of laboratory results Abnormal [facility] [employer] Potassium [Moles/Vol] 3.9 mmol/L 3.7 - 5.3 mmol/L [facility] Sodium [Moles/Vol] 133 mmol/L Low 135 - 144 mmol/L [employer] Urea nitrogen [Mass/Vol] 9 mg/dL 6 - 20 mg/dL [facility] Urea nitrogen/Creatinine [Mass ratio] 15 mg/mg 9 - 20 [facility] CTA HEAD NECK W CONTRASTon 0 7-04-2023 1. Mixed venous and arterial opacification due to timing.. Intracranial opacification is suboptimal. 2. Intracranial and extracranial vessels demonstrate no stenosis, thrombus, dissection, aneurysm, or large vessel occlusion allowing for the degree of opacification. [facility] CTA HEAD NECK W CONTRAST INDICATION:32 years old; one day of anisocoria. Evaluate for aneurysm. TECHNIQUE: CT angiogram of the head and neck was performed. Coronal, sagittal and 3-D reformats were created and reviewed. Examination was performed utilizing intravenous contrast without complication.. Carotid stenosis measurements were made according to the NASCET criteria. Ionizing radiation dose reduced via iterative reconstruction/FBP blend and body size kV/mA adjustment. COMPARISON: Head CT dated 09/27/2022 at 9:58 PM. Due to timing issues, there is a combination of arterial and venous contrast. The presence of venous contrast obscures visualization of the aortic arch. FINDINGS: NECK FINDINGS: AORTIC ARCH: Obscured by the presence of venous contrast. ANTERIOR CIRCULATION: The carotid arteries are patent. Carotid bifurcations are patent. Cervical ICA are patent up to the skull base. No stenosis or thrombus is seen. No dissection is noted. POSTERIOR CIRCULATION: The V1, V2, and V3 segments of vertebral arteries are patent. There is a left dominant system. Allowing for the presence of overlying venous contrast, there is no gross evidence of dissection or thrombus. DEVELOPMENTAL ANOMALIES: None. OTHER: No thyroid nodule or adenopathy. HEAD BRAIN: Ana the report of the noncontrast head CT. ANTERIOR CIRCULATION: The intrapetrous, intracavernous, supraclinoid ICA are patent. Intracranial termini are patent. XU patent bilaterally. MCA patent bilaterally. No stenosis or thrombus is seen. No large vessel occlusion is noted. No aneurysm is seen. POSTERIOR CIRCULATION: The V4 segments are patent. PICA grossly patent allowing for under opacification. AICA patent on the right. Basilar artery and basilar tip are patent. SCA are under opacified but appear grossly patent. Basilar tip has a normal appearance. There is hypoplasia of the P1 segments bilaterally with takeoff of the [employer]ER. Allowing for under opacification, no large vessel occlusion is seen in the [employer]. Distal distributions appear grossly symmetric. DEVELOPMENTAL ANOMALIES: None. OTHER: No pathologic enhancement is seen. Contrast is seen within the venous structures. No large vessel venous occlusion is seen. Incidental note is made of a dominant left and hypoplastic right transverse sinus. [facility] Sid Miles MD - 09/28/2022 CTA HEAD NECK W CONTRAST INDICATION:32 years old; one day of anisocoria. Evaluate for aneurysm. TECHNIQUE: CT angiogram of the head and neck was performed. Coronal, sagittal and 3-D reformats were created and reviewed. Examination was performed utilizing intravenous contrast without complication.. Carotid stenosis measurements were made according to the NASCET criteria. Ionizing radiation dose reduced via iterative reconstruction/FBP blend and body size kV/mA adjustment. COMPARISON: Head CT dated 09/27/2022 at 9:58 PM. Due to timing issues, there is a combination of arterial and venous contrast. The presence of venous contrast obscures visualization of the aortic arch. FINDINGS: NECK FINDINGS: AORTIC ARCH: Obscured by the presence of venous contrast. ANTERIOR CIRCULATION: The carotid arteries are patent. Carotid bifurcations are patent. Cervical ICA are patent up to the skull base. No stenosis or thrombus is seen. No dissection is noted. POSTERIOR CIRCULATION: The V1, V2, and V3 segments of vertebral arteries are patent. There is a left dominant system. Allowing for the presence of overlying venous contrast, there is no gross evidence of dissection or thrombus. DEVELOPMENTAL ANOMALIES: None. OTHER: No thyroid nodule or adenopathy. HEAD BRAIN: Ana the report of the noncontrast head CT. ANTERIOR CIRCULATION: The intrapetrous, intracavernous, supraclinoid ICA are patent. Intracranial termini are patent. XU patent bilaterally. MCA patent bilaterally. No stenosis or thrombus is seen. No large vessel occlusion is noted. No aneurysm is seen. POSTERIOR CIRCULATION: The V4 segments are patent. PICA grossly patent allowing for under opacification. AICA patent on the right. Basilar artery and basilar tip are patent. SCA are under opacified but appear grossly patent. Basilar tip has a normal appearance. There is hypoplasia of the P1 segments bilaterally with takeoff of the [employer]ER. Allowing for under opacification, no large vessel occlusion is seen in the MARINE [employer]ER. Distal distributions appear grossly symmetric. DEVELOPMENTAL ANOMALIES: None. OTHER: No pathologic enhancement is seen. Contrast is seen within the venous structures. No large vessel venous occlusion is seen. Incidental note is made of a dominant left and hypoplastic right transverse sinus. IMPRESSION: 1. Mixed venous and arterial opacification due to timing.. Intracranial opacification is suboptimal. 2. Intracranial and extracranial vessels demonstrate no stenosis, thrombus, dissection, aneurysm, or large vessel occlusion allowing for the degree of opacification. [facility] HCG Qualitative, Serumon HCG ( test) Ql Negative NEGATIVE [facility] Comment on above: Specimens with hCG l evels near the threshold of the test (25 mIU/mL) may give a negative or indeterminate result. In such cases, another test should be performed with a new specimen in 48-72 hours. If early is suspected clinically in this setting, correlation with quantitative serum b-hCG level is suggested. [employer] has confirmed the use of plasma for this test. This has not been cleared or approved by the U.S. Food and Drug Administration. The FDA has determined that such clearance is not necessary. [facility] CT HEAD WO CONTRASTon 2022 1. No acute intracranial abnormality. No hemorrhage or mass effect. 2. Sinus thickening. [facility] INDICATION: 32 years old; Female. Anisocoria TECHNIQUE: CT Head (ax/cor/sag reformats). Ionizing radiation dose reduced via iterative reconstruction/FBP blend and body size kV/mA adjustment. Comparison: Head CT dated 08/04/2017. FINDINGS: POSTOPERATIVE CHANGES: None. BRAIN PARENCHYMA: No focal lesions. No mass effect. No midline shift or herniation. No intraparenchymal or extra-axial hemorrhage. Chaney/white differentiation. VENTRICLES/EXTRA-AXI AL SPACES: Normal for patient's age. SINUSES/MASTOIDS: A periosteal thickening is present in the frontal, ethmoid, and sphenoid sinuses. There is minimal thickening visualized portion of the maxillary sinuses. Mastoid air cells are clear. MSK: No displaced or depressed calvarial fracture. OTHER: No hyperdense intraluminal thrombus. [facility] Sid Miles MD - 09/27/2022 INDICATION: 32 years old; Female. Anisocoria TECHNIQUE: CT Head (ax/cor/sag reformats). Ionizing radiation dose reduced via iterative reconstruction/FBP blend and body size kV/mA adjustment. Comparison: Head CT dated 08/04/2017. FINDINGS: POSTOPERATIVE CHANGES: None. BRAIN PARENCHYMA: No focal lesions. No mass effect. No midline shift or herniation. No intraparenchymal or extra-axial hemorrhage. Chaney/white differentiation. VENTRICLES/EXTRA-AXI AL SPACES: Normal for patient's age. SINUSES/MASTOIDS: A periosteal thickening is present in the frontal, ethmoid, and sphenoid sinuses. There is minimal thickening visualized portion of the maxillary sinuses. Mastoid air cells are clear. MSK: No displaced or depressed calvarial fracture. OTHER: No hyperdense intraluminal thrombus. IMPRESSION: 1. No acute intracranial abnormality. No hemorrhage or mass effect. 2. Sinus thickening. [facility] Radiology Study observation (narrative) [facility] CT HEAD WO CONTRASTOrdered B y: Sid Miles on 09-27-2022 [facility] [employer] Work Phone: CTA HEAD NECK W CONTRASTon 0 09-27-2022 Radiology Study observation (narrative) [facility] PAP ACOG PANEL 2: 30 to 65on 07-05-2022 . . Normal [facility] Comment on above: Result Comment: Perf ormed at: WB Performed By: #### [id number] #### [facility] [address] [place] [address] Dr. Heather De Leon Age Gdln ACOG Testing 30-65 Normal [facility] Comment on above: Performed By: #### [id number] #### [facility] [address] [place] [address] Dr. Heather De Leon DIAGNOSIS: Comment Normal [facility] Comment on above: Result Comment: NEGA TIVE FOR INTRAEPITHELIAL LESION OR MALIGNANCY. Performed at: WB Performed By: #### [id number] #### [facility] [address] [address] [address] Heather De Leon HPV Aptima Negative Normal Negative [facility] Comment on above: Result Comment: This nucleic acid amplification test detects fourteen high-risk HPV types (16,18,31,33,35,39,45,51,52,56,58,59,66,68) without differentiation. Performed at: =G Performed By: #### [id number] #### [facility] [address] [address] [address] Heather De Leon HPV Genotype Reflex Comment Normal [facility] Comment on above: Result Comment: Crit eria not met, HPV Genotype not performed. Performed at: WB Performed By: #### [id number] #### [facility] [address] [place] [address] Dr. Heather De Leon Methodology: Comment Normal [facility] Comment on above: Result Comment: This liquid based ThinPrep(R) pap test was screened with the use of an image guided system. Performed at: WB Performed By: #### [id number] #### [facility] [address] [place] [address] Dr. Heather De Leon Note: Comment Normal [facility] Comment on above: Result Comment: The Pap smear is a screening test designed to aid in the detection of premalignant and malignant conditions of the uterine cervix. It is not a diagnostic procedure and should not be used as the sole means of detecting cervical cancer. Both false-positive and false-negative reports do occur. . Performed at: WB Performed By: #### [id number] #### [facility] [address] [place] [address] Dr. Heather De Leon Performed by: Comment Normal [facility] Comment on above: Result Comment: Wendy Dillard, Flight Coordinator (ASCP) Performed at: WB Performed By: #### [id number] #### [facility] [address] [place] [address] Dr. Heather De Leon Specimen adequacy: Comment Normal [facility] Comment on above: Result Comment: Sati sfactory for evaluation. Endocervical and/or squamous metaplastic cells (endocervical component) are present. Performed at: WB Performed By: #### 4 [id number] #### [facility] [address] [place] [address] Dr. Heather De Leon Quantiferon-TB Plus (Client Incubated)on 05-28-2022 Gamma interferon background IA Qn (Bld) 0.02 International_Unit/m L Invalid Interpretation Code [facility] Comment on above: Performed By: #### 3 [id number] #### [facility] [address] [place] [address] M. tuberculosis stim IFN-g by CD4+ CD8+ T-cells Qn (Bld) 0.05 International_Unit/m L Invalid Interpretation Code [facility] Comment on above: Performed By: #### 3 [id number], [id number] #### [facility] [address] [place] [address] M. tuberculosis stim IFN-g by CD4+ T-cells Qn (Bld) 0.06 International_Unit/m L Invalid Interpretation Code [facility] Comment on above: Performed By: #### 3 [id number], [id number] #### [facility] [address] [place] [address] M. tuberculosis stim IFN-g Ql (Bld) [Interp] Negative Invalid Interpretation Code Negative [facility] Comment on above: Result Comment: No r esponse to M tuberculosis antigens detected. Infection with M tuberculosis is unlikely, but high risk individuals should be considered for additional testing (ATS/IDSA/CDC Clinical Practice Guidelines, 2017). The reference range is an Antigen minus Nil result of <0.35 IU/mL. The specimen received for QuantiFERON testing was incubated by the ordering institution. Specific procedures outlined in our Directory of Services and in the package insert for the QuantiFERON Gold (In Tube) test must be followed to enable for proper stimulation of cells for the production of interferon gamma. Chemiluminescence immunoassay methodology Performed at: [facility] [id number] PhD Lucas Birmingham Performed By: #### 3 [id number], [id number] #### [facility] [address] [place] [address] Mitogen stimulated gamma interferon Qn (Bld) >10.00 Invalid Interpretation Code [facility] Comment on above: Performed By: #### 3 [id number], [id number] #### [facility] [address] [place] [address] Service comment (Unsp spec) [Interp] Comment Invalid Interpretation Code [facility] Comment on above: Result Comment: Mesfin tiFERON-TB Gold Plus is a qualitative indirect test for M tuberculosis infection (including disease) and is intended for use in conjunction with risk assessment, radiography, and other medical and diagnostic evaluations. The QuantiFERON-TB Gold Plus result is determined by subtracting the Nil value from either TB antigen (Ag) value. The Mitogen tube serves as a control for the test. Performed By: #### 3 [id number], [id number] #### [facility] [address] [place] [address] Hep Bs Abon 05-27-2022 HBV surface Ab Ql (S) Non-Reactive Invalid Interpretation Code [facility] Comment on above: Result Comment: Non Reactive: Inconsistent with immunity, less than 10 mIU/mL Reactive: Consistent with immunity, greater than 9.9 mIU/mL Verified by repeat analysis Performed at: [facility] [id number] PhD Lucas Birmingham Performed By: #### 3 [id number], [id number] #### [facility] [address] [place] [address] Measles/Mumps/Rubella Immuni tyon 05-27-2022 MeV IgG IA Qn (S) 113.0 A unit/mL Invalid Interpretation Code Immune >16.4 [facility] Comment on above: Result Comment: Nega tive <13.5 Equivocal 13.5 - 16.4 Positive >16.4 Presence of antibodies to Rubeola is presumptive evidence of immunity except when acute infection is suspected. Performed By: #### 3 [id number], [id number] #### [facility] [address] [place] [address] MuV IgG IA Qn (S) <9.0 Low Immune >10.9 [facility] Comment on above: Result Comment: Nega tive <9.0 Equivocal 9.0 - 10.9 Positive >10.9 A positive result generally indicates past exposure to Mumps virus or previous vaccination. Performed at: [facility] [address] [place], [place] [id number] PhD Luacs Birmingham Performed By: #### 3 [id number], [id number] #### [facility] [address] [place] [address] Rubella virus IgG Qn (S) 2.20 [IU]/mL Invalid Interpretation Code Immune >0.99 [facility] Comment on above: Result Comment: Non- immune <0.90 Equivocal 0.90 - 0.99 Immune >0.99 Performed By: #### 3 [id number], [id number] #### [facility] [address] [place] [address] Varic IgGon 05-27-2022 VZV IgG IA Qn (S) 1337 Invalid Interpretation Code Immune >165 [facility] Comment on above: Result Comment: Nega tive <135 Equivocal 135 - 165 Positive >165 A positive result generally indicates exposure to the pathogen or administration of specific immunoglobulins, but it is not indication of active infection or stage of disease. Performed at: [facility] [address] [place] [id number] PhD Lucas Birmingham Performed By: #### 3 [id number], [id number] #### [facility] [address] [place] [id number] CBC with Auto Differentialon 04-25-2022 Absolute Eos # 0.00 [facility] Absolute Lymph # 2.40 [facility] Absolute [place] # 0.40 [facility] Basophils (Bld) [#/Vol] 0.00 10*3/uL [facility] Basophils/100 WBC (Bld) 0 % 0 - 2 % [facility] Differential Type YES [facility] Eosinophils/100 WBC (Bld) 0 % 0 - 5 % [facility] Hematocrit (Bld) [Volume fraction] 38.8 % 36 - 46 % [facility] Hemoglobin (Bld) [Mass/Vol] 12.9 g/dL 12.0 - 16.0 g/dL [facility] Interpretation and review of laboratory results Abnormal [facility] Lymphocytes/100 WBC (Bld) 42 % High 15 - 40 % [facility] MCH (RBC) [Entitic mass] 29.2 pg 26 - 34 pg [facility] MCHC (RBC) [Mass/Vol] 33.2 g/dL 31 - 37 g/dL [facility] MCV (RBC) [Entitic vol] 88.1 fL 80 - 100 fL [facility] Monocytes/100 WBC (Bld) 7 % 4 - 8 % [facility] Platelet distribution width (Bld) [Ratio] 13.2 % 12.1 - 15.2 % [facility] Platelets (Bld) [#/Vol] 191 10*3/uL [facility] RBC (Bld) [#/Vol] 4.41 10*6/uL 4.0 - 5.2 m/uL [facility] Segmented neutrophils/100 WBC (Bld) 51 % 47 - 75 % [facility] Segs Absolute 2.90 [facility] WBC (Bld) [#/Vol] 5.8 10*3/uL [facility] Comprehensive Metabolic Pane jong 04-25-2022 Albumin [Mass/Vol] 4.1 g/dL 3.5 - 5.2 g/dL [facility] ALP (Bld) [Catalytic activity/Vol] 53 U/L 35 - 104 U/L [facility] ALT [Catalytic activity/Vol] 55 U/L High 5 - 33 U/L [facility] Anion gap [Moles/Vol] 8 mmol/L Low 9 - 17 mmol/L [facility] AST [Catalytic activity/Vol] 41 U/L High NINF - 32 U/L [facility] Bilirubin [Mass/Vol] 0.3 mg/dL 0.3 - 1.2 mg/dL [facility] Calcium [Mass/Vol] 9.8 mg/dL 8.6 - 10. 4 mg/dL [facility] Chloride [Moles/Vol] 104 mmol/L 98 - 107 mmol/L [facility] CO2 [Moles/Vol] 27 mmol/L 20 - 31 mmol/L [facility] Creatinine [Mass/Vol] 0.64 mg/dL 0.50 - 0.90 mg/dL [facility] GFR/1.73 sq M.predicted MDRD (S/P/Bld) [Vol rate/Area] - PINF [facility] Comment on above: These results are not intended for use in patients <18 years of age. eGFR results are calculated without a race factor using the 2020 CKD-EPI equation. Careful clinical correlation is recommended, particularly when comparing to results calculated using previous equations. The CKD-EPI equation is less accurate in patients with extremes of muscle mass, extra-renal metabolism of creatine, excessive creatine ingestion, or following therapy that affects renal tubular secretion. Glucose [Mass/Vol] 95 mg/dL 70 - 99 mg/dL [facility] Interpretation and review of laboratory results Abnormal [facility] Potassium [Moles/Vol] 4.7 mmol/L 3.7 - 5.3 mmol/L [facility] Protein [Mass/Vol] 7.3 g/dL 6.4 - 8.3 g/dL [facility] Sodium [Moles/Vol] 139 mmol/L 135 - 144 mmol/L [facility] Urea nitrogen (BldV) [Mass/Vol] 9 mg/dL 6 - 20 mg/dL [facility] Urea nitrogen/Creatinine (Bld) [Mass ratio] 14 9 - 20 [facility] HCG Qualitative, Serumon hCG Qual Negative NEGATIVE [facility] Comment on above: Specimens with hCG l evels near the threshold of the test (25 mIU/mL) may give a negative or indeterminate result. In such cases, another test should be performed with a new specimen in 48-72 hours. If early is suspected clinically in this setting, correlation with quantitative serum b-hCG level is suggested. [employer] has confirmed the use of plasma for this test. This has not been cleared or approved by the [place]. Food and Drug Administration. The FDA has determined that such clearance is not necessary. [facility] Microscopic Urinalysison - [facility] Bacteria, UA RARE Abnormal None [facility] Interpretation and review of laboratory results Abnormal [facility] RBC, UA 2 TO 5 [facility] WBC, UA 2 TO 5 0 /HPF [facility] Urinalysison 04-25-2022 Bilirubin Urine Negative NEGATIVE [facility] Color, UA Yellow Yellow [facility] Glucose, Ur Negative NEGATIVE [facility] Interpretation and review of laboratory results Abnormal [facility] Ketones Ql (U) Negative NEGATIVE [facility] Leukocyte esterase Test strip Ql (U) 1+ Abnormal NEGATIVE [facility] Nitrite, Urine Negative NEGATIVE [facility] pH, UA 6.0 5.0 - 8.0 [facility] Protein, UA Negative NEGATIVE [facility] Specific [place], UA 1.020 1.005 - 1.030 [facility] Turbidity UA Clear Clear [facility] Urinalysis Comments [facility] Urine Hgb 1+ Abnormal NEGATIVE [facility] Urobilinogen, Urine Normal Normal [facility] PAP ACOG PANEL 2: 30 to 65on 04-12-2022 . . Normal [facility] Comment on above: Result Comment: Perf ormed at: WB Performed By: #### 4 [id number] #### [facility] [address] [address] [address] Heather De Leon Age Gdln ACOG Testing 30-65 Normal [facility] Comment on above: Performed By: #### 4 [id number] #### [facility] [address] [address] [address] Heather De Leon DIAGNOSIS: Comment Normal [facility] Comment on above: Result Comment: NEGA TIVE FOR INTRAEPITHELIAL LESION OR MALIGNANCY. CELLULAR CHANGES ASSOCIATED WITH INFLAMMATION ARE PRESENT. THIS SPECIMEN WAS RESCREENED PART OF OUR LOAN INSPECTOR PROGRAM. Performed at: WB Performed By: #### 4 [id number] #### [facility] [address] [address] [address] Heather De Leon HPV Aptima Negative Normal Negative [facility] Comment on above: Result Comment: This nucleic acid amplification test detects fourteen high-risk HPV types (16,18,31,33,35,39,45,51,52,56,58,59,66,68) without differentiation. Performed at: =G Performed By: #### 4 [id number] #### [facility] [address] [address] [address] Heather De Leon HPV Genotype Reflex Comment Normal [facility] Comment on above: Result Comment: Crit eria not met, HPV Genotype not performed. Performed at: WB Performed By: #### 4 [id number] #### [facility] [address] [place] [address] Dr. Heather De Leon Methodology: Comment Normal [facility] Comment on above: Result Comment: This liquid based ThinPrep(R) pap test was screened with the use of an image guided system. Performed at: WB Performed By: #### 4 [id number] #### [facility] [address] [place] [address] Dr. Heather De Leon Note: Comment Normal [facility] Comment on above: Result Comment: The Pap smear is a screening test designed to aid in the detection of premalignant and malignant conditions of the uterine cervix. It is not a diagnostic procedure and should not be used as the sole means of detecting cervical cancer. Both false-positive and false-negative reports do occur. . Performed at: WB Performed By: #### 4 [id number] #### [facility] [address] [address] [address] Heather De Leon Performed by: Comment Normal [facility] Comment on above: Result Comment: Dorys Escobar Flight Coordinator (ASCP) Performed at: WB Performed By: #### 4 [id number] #### [facility] [address] [place] [address] Dr. Heather De Leon QC reviewed by: Comment Normal [facility] Comment on above: Result Comment: Estiven Vera, Supervisory Flight Coordinator (ASCP) Performed at: WB Performed By: #### 4 [id number] #### [facility] [address] [place] [address] Dr. Heather De Leon Specimen adequacy: Comment Normal [facility] Comment on above: Result Comment: Sati sfactory for evaluation. Endocervical and/or squamous metaplastic cells (endocervical component) are present. Performed at: WB Performed By: #### 4 [id number] #### [facility] [address] [place] [address] Dr. Heather De Leon PREG HCG QUALon 12-14-2021 , QUAL Negative Normal NEGATIVE [facility] Comment on above: Performed By: #### P REG #### [facility] [address] [place] [address] Dr. Heather De Leon CBC AUTO DIFFon 12-08-2021 BASO # 0.0 103/ul Normal 0.0-0.1 [facility] Comment on above: Performed By: #### C BC #### [facility] [address] [place] [address] Dr. Heather De Leon Basophils/100 WBC (Bld) 0.2 % Normal 0.2-2.0 [facility] Comment on above: Performed By: #### C BC #### [facility] [address] [place] [address] Dr. Heather De Leon EO # 0.0 103/ul Normal 0.0-0.7 [facility] Comment on above: Performed By: #### C BC #### [facility] [address] [place] [address] Dr. Heather De Leon Eosinophils/100 WBC (Bld) 0.0 % Critically low 0.9-7.0 [facility] Comment on above: Performed By: #### C BC #### [facility] [address] [place] [address] Dr. Heather De Leon Erythrocyte distribution width (RBC) [Ratio] 12.1 % Normal 11.0-15.0 [facility] Comment on above: Performed By: #### C BC #### [facility] [address] [place] [address] Dr. Heather De Leon Hematocrit (Bld) [Volume fraction] 36.6 % Normal 36.0-48.0 [facility] Comment on above: Performed By: #### C BC #### [facility] [address] [place] [address] Dr. Heather De Leon Hemoglobin (Bld) [Mass/Vol] 12.3 g/dL Normal 12.0-16.0 [facility] Comment on above: Performed By: #### C BC #### [facility] [address] [place] [address] Dr. Heather De Leon IG # 0.00 10e3/ul Normal 0.00-0.03 [facility] Comment on above: Performed By: #### C BC #### [facility] [address] [place] [address] Dr. Heather De Leon IG % 0.0 % Normal 0.0-0.5 [facility] Comment on above: Performed By: #### C BC #### [facility] [address] [place] [address] Dr. Heather De Leon LYMPH # 2.1 103/ul Normal 1.2-3.8 [facility] Comment on above: Performed By: #### C BC #### [facility] [address] [place] [address] Dr. Heather De Leon Lymphocytes/100 WBC (Bld) 46.0 % Normal 20.5-60.0 [facility] Comment on above: Performed By: #### C BC #### [facility] [address] [place] [address] Dr. Heather De Leon MANUAL DIFF REQ NO Normal [facility] Comment on above: Performed By: #### C BC #### [facility] [address] [place] [address] Dr. Heather De Leon MCH (RBC) [Entitic mass] 29.1 pg Normal 26.7-34.0 [facility] Comment on above: Performed By: #### C BC #### [facility] [address] [place] [address] Dr. Heather De Leon MCHC (RBC) [Mass/Vol] 33.6 g/dL Normal 29.9-35.2 [facility] Comment on above: Performed By: #### C BC #### [facility] [address] [address] [address] Heather De Leon MCV (RBC) [Entitic vol] 86.5 fL Normal 81.0-99.0 [facility] Comment on above: Performed By: #### C BC #### [facility] [address] [address] [address] Heather De Leon MONO # 0.6 103/ul Normal 0.3-0.8 [facility] Comment on above: Performed By: #### C BC #### [facility] [address] [place] [address] Dr. Heather De Leon Monocytes/100 WBC (Bld) 12.0 % Normal 1.7-12.0 [facility] Comment on above: Performed By: #### C BC #### [facility] [address] [place] [address] Dr. Heather De Leon NEUT # 1.9 103/ul Normal 1.4-6.5 [facility] Comment on above: Performed By: #### C BC #### [facility] [address] [place] [address] Dr. Heather De Leon Neutrophils/100 WBC (Bld) 41.8 % Critically low 43.0-75.0 [facility] Comment on above: Performed By: #### C BC #### [facility] [address] [place] [address] Dr. Heather De Leon Platelet mean volume (Bld) [Entitic vol] 10.8 fL Normal 9.5-13.5 [facility] Comment on above: Performed By: #### C BC #### [facility] [address] [place] [address] Dr. Heather De Leon PLT 179 103/ul Normal 150-450 [facility] Comment on above: Performed By: #### C BC #### [facility] [address] [place] [address] Dr. Heather De Leon RBC 4.23 106/ul Normal 4.20-5.40 [facility] Comment on above: Performed By: #### C BC #### [facility] [address] [address] [address] Heather De Leon WBC 4.6 103/ul Normal 4.0-11.0 [facility] Comment on above: Performed By: #### C BC #### [facility] [address] [address] [address] Heather De Leon Covid-19 PCR ([facility])on 11-26 SARS-CoV-2 (COVID-19) RNA GERRI+probe Ql (Unsp spec) Not detected Normal NOT DETECTED [facility] Comment on above: Result Comment: This test is not yet approved or cleared by the [place] FDA. When there are no FDA-approved or cleared tests available, and other criteria are met, FDA can make tests available under an emergency access mechanism called an Emergency Use Authorization (EUA). The EUA for this test is supported by the [place] of Health and Human Service's (HHS's) declaration that circumstances exist to justify the emergency use of in vitro diagnostics for the detection and/or diagnosis of the virus that causes COVID-19. This EUA will remain in effect (meaning this test can be used) for the duration of the COVID-19 declaration justifying emergency of IVDs, unless it is terminated or revoked by FDA (after which the test may no longer be used). When diagnostic testing is negative, the possibility of a false negative should be considered in the context of a patient's recent exposures and the presence of clinical signs and symptoms consistent with SARS-CoV-2. Performed By: #### C VDTBH #### [facility] [address] [place] [id number] [address] Heather De Leon DRUG SCREEN RAPID (URINE)on 12-08-2021 AMP Negative Normal NEGATIVE [facility] Comment on above: Performed By: #### D RUGRPD #### [facility] [address] [place] [address] [address] [address] Heather De Leon BAR Negative Normal NEGATIVE [facility] Comment on above: Performed By: #### D RUGRPD #### [facility] [address] [place] [address] Dr. Heather De Leon BUP Positive Abnormal NEGATIVE [facility] Comment on above: Performed By: #### D RUGRPD #### [facility] [address] [place] [address] Dr. Heather De Leon BZO Negative Normal NEGATIVE [facility] Comment on above: Performed By: #### D RUGRPD #### [facility] [address] [place] [address] Dr. Heather De Leon FE Negative Normal NEGATIVE [facility] Comment on above: Performed By: #### D RUGRPD #### [facility] [address] [place] [address] Dr. Heather De Leon CUT-OFFS SEE BELOW Normal [facility] Comment on above: Result Comment: AMP (Amphetamine): 500ng/mL, BAR (Barbituates): 200 ng/mL, BZO (Benzodiazepines): 150 ng/mL, BUP (Buprenorphine): 10 ng/mL, FE (Cocaine): 150 ng/mL, mAMP (Methamphetamine): 500 ng/mL, MTD (Methadone): 200 ng/mL, OPI (Opiates): 100 ng/mL, OXY (Oxycodone): 100 ng/mL, PCP (Phencyclidine): 25 ng/mL, PPX (Propoxyphene): 300 ng/mL, THC (Cannabinoids): 50 ng/mL, TCA (Trycyclic Antidepressants): 300 ng/mL Performed By: #### D RUGRPD #### [facility] [address] [place] [address] Dr. Heather De Leon DRUG CUT HEADER DRUG CLASS TEST SYSTEM CUT-OFF CONCENTRATIONS ARE FOLLOWS: Normal [facility] Comment on above: Performed By: #### D RUGRPD #### [facility] [address] [place] [address] Dr. Heather De Leon mAMP Negative Normal NEGATIVE [facility] Comment on above: Performed By: #### D RUGRPD #### [facility] [address] [place] [address] Dr. Heather De Leon MTD Negative Normal NEGATIVE [facility] Comment on above: Performed By: #### D RUGRPD #### [facility] [address] [address] [address] Heather De Leon OPI Negative Normal NEGATIVE [facility] Comment on above: Performed By: #### D RUGRPD #### [facility] [address] [address] [address] Heather De Leon OXY Negative Normal NEGATIVE [facility] Comment on above: Performed By: #### D RUGRPD #### [facility] [address] [address] [address] Heather De Leon PCP Negative Normal NEGATIVE [facility] Comment on above: Performed By: #### D RUGRPD #### [facility] [address] [address] [address] Heather De Leon PPX Negative Normal NEGATIVE [facility] Comment on above: Performed By: #### D RUGRPD #### [facility] [address] [place] [address] Dr. Heather De Leon TCA Negative Normal NEGATIVE [facility] Comment on above: Performed By: #### D RUGRPD #### [facility] [address] [place] [address] Dr. Heather De Leon THC Negative Normal NEGATIVE [facility] Comment on above: Performed By: #### D RUGRPD #### [facility] [address] [place] [address] Dr. Heather De Leon PAP ACOG PANEL 2: 30 to 65on 11-03-2021 . . Normal [facility] Comment on above: Result Comment: Perf ormed at: WB Performed By: #### [id number] #### [facility] [address] [place] [address] Dr. Heather De Leon Age Gdln ACOG Testing 30-65 Normal [facility] Comment on above: Performed By: #### [id number] #### [facility] [address] [place] [address] Dr. Heather De Leon DIAGNOSIS: Comment Abnormal [facility] Comment on above: Result Comment: EPIT HELIAL CELL ABNORMALITY. HIGH-GRADE SQUAMOUS INTRAEPITHELIAL LESION (HSIL). Performed at: WB Performed By: #### [id number] #### [facility] [address] [place] [address] Dr. Heather De Leon Electronically signed by: Comment Normal [facility] Comment on above: Result Comment: Claudette Scott MD, Pathologist Performed at: WB Performed By: #### [id number] #### [facility] [address] [place] [address] Dr. Heather De Leon HPV Aptima Positive Abnormal Negative [facility] Comment on above: Result Comment: This nucleic acid amplification test detects fourteen high-risk HPV types (16,18,31,33,35,39,45,51,52,56,58,59,66,68) without differentiation. Performed at: =G Performed By: #### [id number] #### [facility] [address] [place] [address] Dr. Heather De Leon Methodology: Comment Normal [facility] Comment on above: Result Comment: This liquid based ThinPrep(R) pap test was screened with the use of an image guided system. Performed at: WB Performed By: #### [id number] #### [facility] [address] [place] [address] Dr. Heather De Leon Note: Comment Normal [facility] Comment on above: Result Comment: The Pap smear is a screening test designed to aid in the detection of premalignant and malignant conditions of the uterine cervix. It is not a diagnostic procedure and should not be used as the sole means of detecting cervical cancer. Both false-positive and false-negative reports do occur. . Performed at: WB Performed By: #### [id number] #### [facility] [address] [place] [address] Dr. Heather De Leon Pathologist Provided ICD10 Comment Normal [facility] Comment on above: Result Comment: [id number] Performed at: WB Performed By: #### [id number] #### [facility] [address] [place] [address] Dr. Heather De Leon Performed by: Comment Normal [facility] Comment on above: Result Comment: Vijay Byrne Flight Coordinator (ASCP) Performed at: WB Performed By: #### [id number] #### [facility] [address] [place], [place] [address] Dr. Heather De Leon Recommendation: Comment Abnormal [facility] Comment on above: Result Comment: Sugg est colposcopy and biopsy if indicated. Performed at: WB Performed By: #### [id number] #### [facility] [address] [place], [place] [address] Dr. Heather De Leon Specimen adequacy: Comment Normal [facility] Comment on above: Result Comment: Sati sfactory for evaluation. Endocervical and/or squamous metaplastic cells (endocervical component) are present. Performed at: WB Performed By: #### [id number] #### [facility] [address] [place], [place] [address] Dr. Heather De Leon Cult,Urine,CCon 03-20-2019 Cult,Urine,CC Specimen Description .CLEAN CATCH URINE Special Requests NOT REPORTED Culture NO SIGNIFICANT GROWTH Report Status FINAL 03/20/2019 [facility] Comment on above: Performed By: #### C EVANGELINA #### [facility] [address] [place], [place] [id number] Cna Hha: Yoshi Armenta MD HCV RNA,Quant,PCRon 03-14-20 19 HCV RNA,Quant,PCR Specimen Description .PLASMA Special Requests NOT REPORTED Direct Exam HCV RNA DETECTED 101,000 IU/ML (5.00 LOG IU/ML) This test is a sensitive method for quantitating HCV RNA viral loads in plasma. It utilizes RT-PCR in the FDA approved Twyla Ampliprep/Taqman 48 System. This test is intended for detecting and quantifying HCV RNA viral loads in the range of 15 IU/mL to 100,000,000 IU/mL (1.18 log IU/mL to 8.00 log IU/mL). Patients should have confirmed HCV infection prior to RNA quantification. This test has been developed to monitor disease progression and efficacy of anti-HCV drug therapy. This test has been optimized for HCV genotypes 1-6. Results reported to the appropriate Health Department Report Status FINAL 03/14/2019 [facility] Comment on above: Performed By: #### H CVQ #### [facility] [address] [place] [address] Cna Hha: Cory Andrews MD [address] [address] Cna Hha: Yoshi Armenta MD Hep B Surf Abon 03-13-2019 Hep B Surf Ab <3.50 Normal <10 [facility] Comment on above: Result Comment: REFERENCE RANGE: <10.0 NON-REACTIVE/NOT IMMUNE >=10.0 REACTIVE/IMMUNE Performed By: #### A HBS, VD25, PHEP #### [address] [address] Cna Hha: Yoshi Armenta MD Hepatitis Acute [facility] 03-13 Hep B Surf Ag REACTIVE Abnormal [facility] Comment on above: Result Comment: THE PRESENCE OF HBsAg INDICATES A CURRENT HEPATITIS B INFECTION. ANTI-HBc IgM WOULD HELP DIFFERENTIATE BETWEEN RECENT AND PAST INFECTION. HBeAg WOULD HELP DEFINE ACTIVE VIRAL REPLICATION AND INCREASED INFECTIVITY. POSITIVITY OF HBsAg FOR >6 MONTHS MAY SIGNAL CHRONIC INFECTION. Results reported to the appropriate Health Department TEST CONFIRMED Performed By: #### A HBS, VD25, PHEP #### [address] [address] Cna Hha: Yoshi Armenta MD Hep A Ab,IgM NONREACTIVE Normal [facility] Comment on above: Performed By: #### A HBS, VD25, PHEP #### [address] [address] Cna Hha: Yoshi Armenta MD Hep B Core Ab,IgM NONREACTIVE Normal [facility] Comment on above: Performed By: #### A HBS, VD25, PHEP #### [address] [address] Cna Hha: Yoshi Armenta MD Hep C Ab REACTIVE Abnormal [facility] Comment on above: Result Comment: The hepatitis C procedure used in [...] Results reported to the appropriate Health Department Performed By: #### A HBS, VD25, PHEP #### [employer] [address] [place] [address] Cna Hha: Yoshi Armenta MD Hepatitis B Surface Antibody Ordered By: William Christina on 03-13-2019 HBV surface Ab (S) [Titer] <3.50 <10 mIU/mL [employer] Phone: Comment on above: REFERENCE RANGE: <10.0 NON-REACTIVE/NOT IMMUNE >=10.0 REACTIVE/IMMUNE Hepatitis Panel, AcuteOrdere d By: William Christina on 03-13-2019 HAV IgM IA Qn (S) Non-Reactive NONREACTIVE [employer] Phone: Hep B Core Ab, IgM Non-Reactive NONREACTIVE [employer] Work Phone: Hepatitis B Surface Ag Reactive Abnormal NONREACTIVE [employer] Phone: Comment on above: THE PRESENCE OF HBsA g INDICATES A CURRENT HEPATITIS B INFECTION. ANTI-HBc IgM WOULD HELP DIFFERENTIATE BETWEEN RECENT AND PAST INFECTION. HBeAg WOULD HELP DEFINE ACTIVE VIRAL REPLICATION AND INCREASED INFECTIVITY. POSITIVITY OF HBsAg FOR >6 MONTHS MAY SIGNAL CHRONIC INFECTION. Results reported to the appropriate Health Department Hepatitis C Ab Reactive Abnormal NONREACTIVE [facility] Work Phone: Comment on above: The hepatitis C procedure used in our [...] Results reported to the appropriate Health Department Interpretation and review of laboratory results Abnormal [employer] Phone: Vitamin D 25 HydroxyOrdered By: William Christina on 03-13-2019 Vit D, 25-Hydroxy 32.3 ng/mL 30 - 100 ng/mL [employer] Work Phone: Comment on above: Reference Range: Vitamin D status Range Deficiency <20 ng/mL Mild Deficiency 20-30 ng/mL Sufficiency 30-100 ng/mL Toxicity >100 ng/mL Vitamin D 25 [place]on 03-13-2019 Vitamin D 25 [place] 32.3 ng/mL Normal 30.0-100.0 [facility] Comment on above: Result Comment: Reference Range: Vitamin D status Range Deficiency <20 ng/mL Mild Deficiency 20-30 ng/mL Sufficiency 30-100 ng/mL Toxicity >100 ng/mL Performed By: #### A HBS, VD25, PHEP #### [employer] [address] [id number] Cna Hha: Yoshi Armenta MD Microscopic Urinalysison Amorphous, UA 1+ Abnormal None [facility] [place] [place] Bacteria, UA MODERATE Abnormal None [facility] [employer] [place] Casts UA NOT REPORTED /LPF [facility] [employer] [place] Crystals UA NOT REPORTED None /HPF [facility] [place] Epithelial Cells UA 5 TO 10 [facility] [place] Interpretation and review of laboratory results Abnormal [facility] [employer] [place] Mucus, UA 1+ Abnormal None [facility] Other Observations UA NOT REPORTED NOT REQ. [facility] RBC (U) [#/Vol] 0 TO 2 [facility] Renal Epithelial, Urine NOT REPORTED 0 /HPF [facility] Trichomonas, UA NOT REPORTED None [facility] WBC, UA 10 TO 20 [facility] Yeast, UA NOT REPORTED None [facility] [employer] [place] - [facility] POCT urine pregnancyon 03-02 Interpretation and review of laboratory results Normal [facility] Preg Test, Ur [facility] [place] Comment on above: neg QC OK? [facility] Comment on above: [place] Urinalysison 03-02-2019 Bilirubin Urine Negative NEGATIVE [facility] Color, UA YELLOW YELLOW [facility] Glucose, Ur Negative NEGATIVE [facility] [place] Interpretation and review of laboratory results Abnormal [place], [place] Ketones Ql (U) Negative NEGATIVE [place] Leukocyte esterase Test strip Ql (U) TRACE Abnormal NEGATIVE [place] Nitrite, Urine Negative NEGATIVE [place] pH, UA 6.0 [place] Protein (U) [Mass/Vol] Negative NEGATIVE [place] Specific [place], UA 1.020 [place] Turbidity UA SLIGHTLY CLOUDY Abnormal [place] Urinalysis Comments NOT REPORTED [place] Urine Hgb Negative NEGATIVE [place] Urobilinogen, Urine Normal Normal [place] Urinalysis, Routineon 2018 Acetoacetic Acid,Ur Negative Normal NEG [facility] Comment on above: Performed By: #### U A UMICAO #### [facility] [address] [place] [address] Cna Hha: Cory Andrews MD Bilirubin, SemiQt,Ur Negative Normal NEG [facility] Comment on above: Performed By: #### U A UMICAO #### [facility] [address] [place] [address] Cna Hha: Cory Andrews MD Color (U) YELLOW Normal YEL [facility] Comment on above: Performed By: #### U A UMICAO #### [facility] [address] [place] [address] Cna Hha: Cory Andrews MD Glucose Ql (U) Negative Normal NEG [facility] Comment on above: Performed By: #### U A UMICAO #### [facility] [address] [place] [address] Cna Hha: Cory Andrews MD Hemoglobin, Ur Negative Normal NEG [facility] Comment on above: Performed By: #### U A UMICAO #### [facility] [address] [place] [address] Cna Hha: Cory Andrews MD Leukocyte esterase Test strip Ql (U) TRACE Abnormal NEG [facility] Comment on above: Performed By: #### U A, UMICAO #### [facility] [address] [place] [address] Cna Hha: Cory Andrews MD Nitrite,Ur Negative Normal NEG [facility] Comment on above: Performed By: #### U A, UMICAO #### [facility] [address] [place] [address] Cna Hha: Cory Andrews MD pH (U) 6.0 [pH] Normal 5.0-8.0 [facility] Comment on above: Performed By: #### U A, UMICAO #### [facility] [address] [place] [address] Cna Hha: oCry Andrews MD Protein Ql (U) Negative Normal NEG [facility] Comment on above: Performed By: #### U A, UMICAO #### [facility] [address] [place] [address] Cna Hha: Cory Andrews MD Specific gravity (U) [Rel density] 1.020 Normal 1.005-1.030 [facility] Comment on above: Performed By: #### U A, UMICAO #### [facility] [address] [place] [address] Cna Hha: Cory Andrews MD Turbidity SLIGHTLY CLOUDY Abnormal CLEAR [facility] Comment on above: Performed By: #### U A, UMICAO #### [facility] [address] [place] [address] Cna Hha: Cory Andrews MD Urobilinogen,Ur Normal Normal NORM [facility] Comment on above: Performed By: #### JESSICA Horowitz #### [facility] [address] [place] [address] Cna Hha: Cory Andrews MD Comment NOT REPORTED Normal [facility] Comment on above: Performed By: #### JESSICA Horowitz #### [facility] [address] [place] [address] Cna Hha: Cory Andrews MD Urinalysis,Microon 9 ----- Normal [facility] Comment on above: Performed By: #### JESSICA Horowitz #### [facility] [address] [place] [address]. [place] [address] Cna Hha: Cory Andrews MD Amorphous sediment LM Ql (Urine sed) 1+ Abnormal NONE [facility] Comment on above: Performed By: #### JESSICA Horowitz #### [facility] [address] [place], [place] [address]ia [facility] [place] [address] Cna Hha: Cory Andrews MD Bacteria LM.HPF (Urine sed) [#/Area] MODERATE Abnormal NONE [facility] Comment on above: Performed By: #### JESSICA Horowitz #### [facility] [place] [address] Cna Hha: Cory Andrews MD Epithelial cells LM.HPF (Urine sed) [#/Area] 5 TO 10 Normal 0-5 [facility] Comment on above: Performed By: #### JESSICA Horowitz #### [facility] [place] [address] Cna Hha: Cory Andrews MD Mucus Strands 1+ Abnormal NONE [facility] Comment on above: Performed By: #### JESSICA Horowitz #### [facility] [place] [address] Cna Hha: Cory Andrews MD RBC (U) [#/Vol] 0 TO 2 Normal 0-2 [facility] Comment on above: Performed By: #### JESSICA Horowitz #### [facility] [address] [facility] [place] [address] Cna Hha: Cory Andrews MD WBC (U) [#/Vol] 10 TO 20 Normal 0-5 [facility] Comment on above: Performed By: #### JESSICA Horowitz #### [facility] [address] [place] [address]. [place] [address] Cna Hha: Cory Andrews MD Casts LM.LPF (Urine sed) [#/Area] NOT REPORTED Normal [facility] Comment on above: Performed By: #### JESSICA Horowitz #### [facility] [place] [address] Cna Hha: Cory Andrews MD Crystals LM Nom (Urine sed) NOT REPORTED Normal NONE [facility] Comment on above: Performed By: #### JESSICA Horowitz #### [facility] [place] [address] Cna Hha: Cory Andrews MD Epithelial, Renal NOT REPORTED Normal 0 [facility] Comment on above: Performed By: #### JESSICA Horowitz #### [facility] [place] [address] Cna Hha: Cory Andrews MD Other Observations NOT REPORTED Normal NREQ [facility] Comment on above: Performed By: #### U JESSICA Holloway #### [facility] [address] [facility] [place] [address] Cna Hha: Cory Andrews MD Trichomonas NOT REPORTED Normal NONE [facility] Comment on above: Performed By: #### U CAROLE HollowayO #### [facility] [address] [facility] [place] [address] Cna Hha: Cory Andrews MD Yeast LM Ql (Urine sed) NOT REPORTED Normal NONE [facility] Comment on above: Performed By: #### U JESSICA Holloway #### [facility] [address] [facility] [place] [address] Cna Hha: Cory Andrews MD APTTon 12-09-2018 aPTT Coag (Bld) [Time] 31.8 s Normal 25.0-35.0 [facility] Comment on above: Result Comment: ALL RESULTS MUST BE INTERPRETED WITH RESPECT TO BLOOD DRAWING ARTIFACT OR DILUTION ERROR OF ANTICOAGULANT AT THE TIME OF SAMPLING. THE APTT SHOULD NOT BE USED TO MONITOR UNFRACTIONATED HEPARIN THERAPY, THIS LABORATORY NO LONGER HAS AN ESTABLISHED THERAPEUTIC RANGE BASED ON THE APTT. IT IS RECOMMENDED THAT THE [facility] - HEPARIN ASSAY (ANTI-XA ACTIVITY) BE USED FOR THIS PURPOSE. Performed By: #### 0 [id number] #### [facility] [address] BASIC METABOLIC PANELon 11-26 Calcium [Mass/Vol] 9.1 mg/dL Normal 8.6-10.3 [facility] Comment on above: Performed By: #### 0 0121 #### [facility] [address] [place] [address], [facility] Chloride [Moles/Vol] 102 mmol/L Normal 98-107 [facility] Comment on above: Performed By: #### 0 0121 #### [facility] [address] [place] [address], [facility] CO2 [Moles/Vol] 29 mmol/L Normal 21-31 [facility] Comment on above: Performed By: #### 0 0121 #### [facility] [address] [place] [address], [place] Creatinine [Mass/Vol] 0.67 mg/dL Normal 0.60-1.20 [facility] Comment on above: Performed By: #### 0 0121 #### [facility] [address] [place] [address], [place] GFR/1.73 sq M predicted among blacks MDRD (S/P/Bld) [Vol rate/Area] mL/min/{1.73_m2} Normal >60 [facility] Comment on above: Performed By: #### 0 0121 #### [facility] [address] [place] [address], [place] GFR/1.73 sq M predicted among non-blacks MDRD (S/P/Bld) [Vol rate/Area] mL/min/{1.73_m2} Normal >60 [facility] Comment on above: Performed By: #### 0 0121 #### [facility] [address] [place] [address], [place] Glucose [Mass/Vol] 111 mg/dL High 70-[address] [facility] Comment on above: Performed By: #### 0 0121 #### [facility] [address] [place] [address], [place] Potassium [Moles/Vol] 4.1 mmol/L Normal 3.5-5.1 [facility] Comment on above: Performed By: #### 0 0121 #### [facility] [address] [place] [address], [place] Sodium [Moles/Vol] 136 mmol/L Normal 136-[address] [facility] Comment on above: Performed By: #### 0 0121 #### [facility] [address] Urea nitrogen [Mass/Vol] 13 mg/dL Normal 7-25 [facility] Comment on above: Performed By: #### 0 0121 #### [facility] [address] CBC W/DIFFon 12-09-2018 ABS BASOPHILS 0.0 10*3/uL Normal 0.0-0.2 [facility] Comment on above: Performed By: #### 0 0121 #### [facility] [address] ABS IMM GRANS 0.0 10*3/uL Normal 0.0-0.2 [facility] Comment on above: Performed By: #### 0 0121 #### [facility] [address] ABS NEUTROPHILS 5.8 10*3/uL Normal 1.6-7.6 [facility] Comment on above: Performed By: #### 0 0121 #### [facility] [address] Basophils/100 WBC (Bld) 0.1 % Normal 0.0-1.0 [facility] Comment on above: Performed By: #### 0 0121 #### [facility] [address] [place] [address], [facility] Eosinophils (Bld) [#/Vol] 0.0 10*3/uL Normal 0.0-0.5 [facility] Comment on above: Performed By: #### 0 0121 #### [facility] [address] [place] [address], [facility] Eosinophils/100 WBC (Bld) 0.1 % Normal 0.0-6.0 [facility] Comment on above: Performed By: #### 0 0121 #### [facility] [address] Erythrocyte distribution width (RBC) [Ratio] 12.5 % Normal 11.5-15.0 [facility] Comment on above: Performed By: #### 0 0121 #### [facility] [address] Hematocrit (Bld) [Volume fraction] 38.3 % Normal 36.0-45.0 [facility] Comment on above: Performed By: #### 0 0121 #### [facility] [address] Hemoglobin (Bld) [Mass/Vol] 12.6 g/dL Normal 12.0-15.0 [facility] Comment on above: Performed By: #### 0 0121 #### [facility] [address] IMMATURE GRANS 0.2 % Normal 0.0-1.0 [facility] Comment on above: Performed By: #### 0 0121 #### [facility] [address] [place] [address], [facility] Lymphocytes (Bld) [#/Vol] 2.1 10*3/uL Normal 1.2-4.0 [facility] Comment on above: Performed By: #### 0 0121 #### [facility] [address] Lymphocytes/100 WBC (Bld) 24.3 % Normal 20.0-45.0 [facility] Comment on above: Performed By: #### 0 0121 #### [facility] [address] MCH (RBC) [Entitic mass] 28.5 pg Normal 27.0-33.0 [facility] Comment on above: Performed By: #### 0 0121 #### [facility] [address] [place] [address], [facility] MCHC (RBC) [Mass/Vol] 32.9 g/dL Normal 32.0-35.0 [facility] Comment on above: Performed By: #### 0 0121 #### [facility] [address] [place] [address], [facility] MCV (RBC) [Entitic vol] 86.7 fL Normal 82.0-98.0 [facility] Comment on above: Performed By: #### 0 0121 #### [facility] [address] [place] [address], [facility] Monocytes (Bld) [#/Vol] 0.7 10*3/uL Normal 0.1-1.0 [facility] Comment on above: Performed By: #### 0 0121 #### [facility] [address] [place] [address], [facility] MONOS 7.5 % Normal 5.0-12.0 [facility] Comment on above: Performed By: #### 0 0121 #### [facility] [address] [place] [address], [facility] Neutrophils/100 WBC (Bld) 67.8 % Normal 40.0-72.0 [facility] Comment on above: Performed By: #### 0 0121 #### [facility] [address] [place] [address], [facility] Nucleated RBC/100 WBC (Bld) [Ratio] 0 % Normal 0-0 [facility] Comment on above: Performed By: #### 0 0121 #### [facility] [address] [place] [address], [facility] PLAT CNT 253 10*3/uL Normal 150-400 [facility] Comment on above: Performed By: #### 0 0121 #### [facility] [address] [place] [id number], [facility] RBC (Bld) [#/Vol] 4.42 10*6/uL Normal 3.80-5.00 [facility] Comment on above: Performed By: #### 0 0121 #### [facility] [address] [place] [address], [facility] WBC (Bld) [#/Vol] 8.63 10*3/uL Normal 4.00-10.60 The [facility] Comment on above: Performed By: #### 0 0121 #### [facility] [address] [place] [address], [facility] LIVER BATTERYon 12-09-2018 Albumin [Mass/Vol] 4.0 g/dL Normal 3.5-5.7 [facility] Comment on above: Performed By: #### 0 0121 #### [facility] [address] [place] [address], [facility] ALKALINE PHOSPH 85 IU/L Normal 34-104 [facility] Comment on above: Performed By: #### 0 0121 #### [facility] [address] [place] [address], [facility] ALT [Catalytic activity/Vol] 112 U/L High 7-52 [facility] Comment on above: Performed By: #### 0 0121 #### [facility] [address] [place] [address], [facility] AST [Catalytic activity/Vol] 57 U/L High 13-39 [facility] Comment on above: Performed By: #### 0 0121 #### [facility] [address] [place] [address], [facility] Bilirubin [Mass/Vol] 0.3 mg/dL Normal 0.3-1.0 [facility] Comment on above: Performed By: #### 0 0121 #### [facility] [address] [place] [address], [facility] Bilirubin.direct [Mass/Vol] 0.1 mg/dL Normal 0.0-0.2 [facility] Comment on above: Performed By: #### 0 0121 #### [facility] [address] Protein [Mass/Vol] 7.2 g/dL Normal 6.0-8.3 [facility] Comment on above: Performed By: #### 0 0121 #### [facility] [address] MAGNESIUM BLOODon 12-09-2018 Magnesium [Mass/Vol] 2.0 mg/dL Normal 1.9-2.7 [facility] Comment on above: Performed By: #### 0 0121 #### [facility] [address] POC URINE PREGNANCYon 2018 Beta HCG ( test) Ql (U) Negative Normal NEGATIVE [facility] Comment on above: Result Comment: Perf ormed in Emergency Department. Performed By: #### 5 [id number], [id number] #### [facility] [address] PROTHROMBIN TIMEon 9 INR Coag (PPP) [Relative time] 0.92 {INR} Normal 0.91-1.16 [facility] Comment on above: Result Comment: ACCC P RECOMMENDED INR FOR WARFARIN THERAPY ------ ------- CONDITION INR PROPHYLAXIS OF VENOUS THROMBOSIS 2-3 (HIGH-RISK SURGERY) TREATMENT OF VENOUS THROMBOSIS 2-3 TREATMENT OF PULMONARY EMBOLISM 2-3 PREVENTION OF SYSTEMIC EMBOLISM: 2-3 ACUTE MYOCARDIAL INFARCTION TISSUE HEART VALVES VALVULAR HEART DISEASE ATRIAL FIBRILLATION RECURRENT SYSTEMIC EMBOLISM MECHANICAL HEART VALVE 2.5-3.5 FROM: ORAL ANTICOAGULANTS. MECHANISM OF ACTION, CLINICAL EFFECTIVENESS, AND OPTIMAL THERAPEUTIC RANGE. CHEST 1995;108:231S-246S. Performed By: #### 0 0121 #### [facility] [address] PT Coag (PPP) [Time] 12.4 s Normal 12.3-14.8 [facility] Comment on above: Result Comment: ALL RESULTS MUST BE INTERPRETED WITH RESPECT TO BLOOD DRAWING ARTIFACT OR DILUTION ERROR OF ANTICOAGULANT AT THE TIME OF SAMPLING. Performed By: #### 0 0121 #### [facility] [address] TOX PANEL URINEon 12-09-2018 50 THC Positive Abnormal NEGATIVE [facility] Comment on above: Performed By: #### 0 0121 #### [facility] [address] BARBITURATES Negative Normal NEGATIVE The [facility] Comment on above: Performed By: #### 0 0121 #### [facility] [address] Benzodiazepines Ql (U) Negative Normal NEGATIVE [facility] Comment on above: Performed By: #### 0 0121 #### [facility] [address] Cocaine Ql (U) Positive Abnormal NEGATIVE The [facility] Comment on above: Performed By: #### 0 0121 #### [facility] [address] Methadone Ql (U) Positive Abnormal NEGATIVE The [facility] Comment on above: Performed By: #### 0 0121 #### [facility] [address] MONO AMPHET Positive Abnormal NEGATIVE [facility] Comment on above: Performed By: #### 0 0121 #### [facility] [address] [place] [address], [facility] Opiates Ql (U) Positive Abnormal NEGATIVE The [facility] Comment on above: Performed By: #### 0 0121 #### [facility] [address] [place] [address], [facility] Phencyclidine Ql (U) Negative Normal NEGATIVE [facility] Comment on above: Performed By: #### 0 0121 #### [facility] [address] [place] [address], [facility] PROPOXYPHENE Negative Normal NEGATIVE The [facility] Comment on above: Performed By: #### 0 0121 #### [facility] [address] TRICYCLICS Negative Normal NEGATIVE [facility] Comment on above: Performed By: #### 0 0121 #### [facility] [address] TROPONIN-Ion 12-09-2018 Troponin I.cardiac [Mass/Vol] 0.00 ng/mL Normal 0.00-0.[address] [facility] Comment on above: Result Comment: REFE RENCE RANGES: 0.00 - 0.14 ng/ml NEGATIVE 0.15 - 0.25 ng/ml INDETERMINATE > 0.25 ng/ml INDICATIVE OF AN M.I. Performed By: #### 0 0121 #### [facility] [address] [place] [address], [facility] URINALYSIS REFLEXon 12-10-19 19 Appearance (U) SL CLOUDY Abnormal CLEAR The [facility] Comment on above: Order Comment: No: D o not add to previous draw Performed By: #### 0 0121 #### [facility] [address] [place] [address], [place] Bilirubin [Mass/Vol] Negative Normal NEGATIVE [facility] Comment on above: Order Comment: No: D o not add to previous draw Performed By: #### 0 0121 #### [facility] [address] [place] [address], [place] BLOOD Negative Normal NEGATIVE [facility] Comment on above: Order Comment: No: D o not add to previous draw Performed By: #### 0 0121 #### [facility] [address] [place] [address], [place] Color (U) YELLOW Normal YELLOW [facility] Comment on above: Order Comment: No: D o not add to previous draw Performed By: #### 0 0121 #### [facility] [address] [place] [address], [place] EPIS MANY Abnormal FEW,OCC,NONE SEEN [facility] Comment on above: Order Comment: No: D o not add to previous draw Performed By: #### 0 0121 #### [facility] [address] [place] [address], [place] Glucose [Mass/Vol] Negative Normal NEGATIVE The [facility] Comment on above: Order Comment: No: D o not add to previous draw Performed By: #### 0 0121 #### [facility] [address] [place] [address], [place] HYALINE CASTS 2 /LPF Abnormal NONE SEEN The [facility] Comment on above: Order Comment: No: D o not add to previous draw Performed By: #### 0 0121 #### [facility] [address] [place] [address], [place] KETONE Negative Normal NEGATIVE [facility] Comment on above: Order Comment: No: D o not add to previous draw Performed By: #### 0 0121 #### [facility] [address] [place] [address], [place] LEUK MARTA SMALL Abnormal NEGATIVE [facility] Comment on above: Order Comment: No: D o not add to previous draw Performed By: #### 0 0121 #### [facility] [address] [place] [address], [facility] MUCUS THREADS MOD Abnormal NONE SEEN The [facility] Comment on above: Order Comment: No: D o not add to previous draw Performed By: #### 0 0121 #### [facility] [address] [place] [address], [facility] Nitrite Ql (U) Negative Normal NEGATIVE The [facility] Comment on above: Order Comment: No: D o not add to previous draw Performed By: #### 0 0121 #### [facility] [address] [place] [address], [facility] pH (Bld) 5.0 Normal 5.0-8.0 [facility] Comment on above: Order Comment: No: D o not add to previous draw Performed By: #### 0 0121 #### [facility] [address] [place] [address], [facility] Protein (U) [Mass/Vol] Negative Normal NEGATIVE [facility] Comment on above: Order Comment: No: D o not add to previous draw Performed By: #### 0 0121 #### [facility] [address] [place] [address], [facility] RBC (U) [#/Vol] 0-2 Abnormal NONE SEEN The [facility] Comment on above: Order Comment: No: D o not add to previous draw Performed By: #### 0 0121 #### [facility] [address] [place] [id number], [facility] SPEC GRAV 1.011 Low 1.015-1.020 [facility] Comment on above: Order Comment: No: D o not add to previous draw Performed By: #### 0 0121 #### [facility] [address] [place] [address], [place] WBC UA 6-10 Abnormal NONE SEEN [facility] Comment on above: Order Comment: No: D o not add to previous draw Performed By: #### 0 0121 #### [facility] [address] [place] [address], [facility] CBCon 11-23-2018 Erythrocyte distribution width (RBC) [Ratio] 12.2 % Normal 11.8-14.4 [facility] Comment on above: Performed By: #### P HEP, HIVCMB #### [address] [address] Cna Hha: Yoshi Armenta MD #### CBC, CP, HCG #### [address] [place] [address] Cna Hha: Hao Louis MD Hematocrit (Bld) [Volume fraction] 42.1 % Normal 36.3-47.1 [facility] Comment on above: Performed By: #### P HEP, HIVCMB #### [address] [address] Cna Hha: Yoshi Armenta MD #### CBC, CP, HCG #### [address] [place] [address] Cna Hha: Hao Louis MD Hemoglobin (Bld) [Mass/Vol] 13.8 g/dL Normal 11.9-15.1 [facility] Comment on above: Performed By: #### P HEP, HIVCMB #### [address] [address] Cna Hha: Yoshi Armenta MD #### CBC, CP, HCG #### [address] [place] [address] Cna Hha: Hao Louis MD MCH (RBC) [Entitic mass] 28.6 pg Normal 25.2-33.5 [facility] Comment on above: Performed By: #### P HEP, HIVCMB #### [address] [address] Cna Hha: Yoshi Armenta MD #### CBC, CP, HCG #### [address] [place] [address] Cna Hha: Hao Louis MD MCHC (RBC) [Mass/Vol] 32.8 g/dL Normal 28.4-34.8 [facility] Comment on above: Performed By: #### P HEP, HIVCMB #### [address] [address] Cna Hha: Yoshi Armenta MD #### CBC, CP, HCG #### [address] [place] [address] Cna Hha: Hao Louis MD MCV (RBC) [Entitic vol] 87.2 fL Normal 82.6-102.9 [facility] Comment on above: Performed By: #### P HEP, HIVCMB #### [address] [address] Cna Hha: Yoshi Armenta MD #### CBC, CP, HCG #### [address] [place] [address] Cna Hha: Hao Louis MD NRBC Automated 0.0 per 100 WBC Normal 0.0 [facility] Comment on above: Performed By: #### P HEP, HIVCMB #### [address] [address] Cna Hha: Yoshi Armenta MD #### CBC, CP, HCG #### [address] [place] [address] Cna Hha: Hao Louis MD Platelet mean volume (Bld) [Entitic vol] 10.9 fL Normal 8.1-13.5 [facility] Comment on above: Performed By: #### P HEP, HIVCMB #### [place] [address] [place] [address] Cna Hha: Yoshi Armenta MD #### CBC, CP, HCG #### [facility] [address] [place], [place] [id number] Cna Hha: Hao Louis MD Platelets (Bld) [#/Vol] 243 10*3/uL Normal 138-453 [facility] Comment on above: Performed By: #### P HEP, HIVCMB #### [address] [address] Cna Hha: Yoshi Armenta MD #### CBC, CP, HCG #### [address] [place], [place] [id number] Cna Hha: Hao Louis MD RBC (Bld) [#/Vol] 4.83 10*6/uL Normal 3.95-5.11 [facility] Comment on above: Performed By: #### P HEP, HIVCMB #### [address] [address] Cna Hha: Yoshi Armenta MD #### CBC, CP, HCG #### [address] [place], [place] [id number] Cna Hha: Hao Louis MD WBC (Bld) [#/Vol] 3.4 10*3/uL Low 3.5-11.3 [facility] Comment on above: Performed By: #### P HEP, HIVCMB #### [address] [address] Cna Hha: Yoshi Armenta MD #### CBC, CP, HCG #### [address] [place], [place] [id number] Cna Hha: Hao Louis MD Erythrocyte distribution width (RBC) [Ratio] 12.2 % 11.8 - 14.4 % [place] Hematocrit (Bld) [Volume fraction] 42.1 % 36.3 - 47.1 % [place] Hemoglobin (Bld) [Mass/Vol] 13.8 g/dL 11.9 - 15.1 g/dL [place] Interpretation and review of laboratory results Abnormal [place] MCH (RBC) [Entitic mass] 28.6 pg 25.2 - 33.5 pg [place] MCHC (RBC) [Mass/Vol] 32.8 g/dL 28.4 - 34.8 g/dL [place] MCV (RBC) [Entitic vol] 87.2 fL 82.6 - 102.9 fL [place] Platelet mean volume (Bld) [Entitic vol] 10.9 fL 8.1 - 13.5 fL [place] Platelets (Bld) [#/Vol] 243 10*3/uL [place] RBC (Bld) [#/Vol] 4.83 10*6/uL 3.95 - 5.1 1 m/uL [place] WBC (Bld) [#/Vol] 3.4 10*3/uL Low [place] WBC (Bld) [#/Vol] 0.0 10*3/uL 0.0 per 10 0 WBC [place] Comp Metabolic Profon 2018 (cont.) Normal [facility] Comment on above: Result Comment: Aver age GFR for 20-29 years old: 116 mL/min/1.73sq m Chronic Kidney Disease: <60 mL/min/1.73sq m Kidney failure: <15 mL/min/1.73sq m eGFR calculated using average adult body mass. Additional eGFR calculator available at: http://www.Uberseq.com/multiple_crcl_2011.htm Performed By: #### P HEP, HIVCMB #### [facility] [address] [place] [address] Cna Hha: Yoshi Armenta MD #### CBC, CP, HCG #### [facility] [address] [place], [place] [id number] Cna Hha: Hao Louis MD Albumin [Mass/Vol] 4.0 g/dL Normal 3.5-5.2 [facility] Comment on above: Performed By: #### P HEP, HIVCMB #### [place] [address] [place] [address] Cna Hha: Yoshi Armenta MD #### CBC, CP, HCG #### [facility] [address] [place], [place] [id number] Cna Hha: Hao Louis MD Albumin/Globulin [Mass ratio] 1.1 {ratio} Normal 1.0-2.5 [facility] Comment on above: Performed By: #### P HEP, HIVCMB #### [address] [address] Cna Hha: Yoshi Armenta MD #### CBC, CP, HCG #### [address] [place], [place] [address] Cna Hha: Hao Louis MD Alkaline Phos 101 U/L Normal 35-104 [facility] Comment on above: Performed By: #### P HEP, HIVCMB #### [address] [address] Cna Hha: Yoshi Armenta MD #### CBC, CP, HCG #### [address] [place], [place] [address] Cna Hha: Hao Louis MD ALT [Catalytic activity/Vol] 204 U/L High 5-33 [facility] Comment on above: Performed By: #### P HEP, HIVCMB #### [address] [address] Cna Hha: Yoshi Armenta MD #### CBC, CP, HCG #### [address] [place], [place] [address] Cna Hha: Hao oLuis MD Anion gap [Moles/Vol] 11 mmol/L Normal 9-17 [facility] Comment on above: Performed By: #### P HEP, HIVCMB #### [facility] [address] [place] [address] Cna Hha: Yoshi Armenta MD #### CBC, CP, HCG #### [facility] [address] [place] [id number] Cna Hha: Hao Louis MD AST [Catalytic activity/Vol] 135 U/L High <32 [facility] Comment on above: Performed By: #### P HEP, HIVCMB #### [address] [address] Cna Hha: Yoshi Armenta MD #### CBC, CP, HCG #### [address] [place] [id number] Cna Hha: Hao Louis MD Bilirubin Ql (U) 0.31 mg/dL Normal 0.3-1.2 [facility] Comment on above: Performed By: #### P HEP, HIVCMB #### [address] [address] Cna Hha: Yoshi Armenta MD #### CBC, CP, HCG #### [address] [place] [id number] Cna Hha: Hao Louis MD BUN/CRE Ratio 17 Normal 9-20 [facility] Comment on above: Performed By: #### P HEP, HIVCMB #### [address] [address] Cna Hha: Yoshi Armenta MD #### CBC, CP, HCG #### [facility] [address] [place], [place] [id number] Cna Hha: Hao Louis MD Calcium [Mass/Vol] 9.8 mg/dL Normal 8.6-10.4 [facility] Comment on above: Performed By: #### P HEP, HIVCMB #### [address] [address] Cna Hha: Yoshi Armenta MD #### CBC, CP, HCG #### [facility] [address] [place] [address] Cna Hha: Hao Louis MD Chloride [Moles/Vol] 100 mmol/L Normal 98-107 [facility] Comment on above: Performed By: #### P HEP, HIVCMB #### [address] [address] Cna Hha: Yoshi Armenta MD #### CBC, CP, HCG #### [facility] [address] [place] [address] Cna Hha: Hao Louis MD CO2 [Moles/Vol] 26 mmol/L Normal 20-31 [facility] Comment on above: Performed By: #### P HEP, HIVCMB #### [address] [address] Cna Hha: Yoshi Armenta MD #### CBC, CP, HCG #### [facility] [address] [place] [address] Cna Hha: Hao Louis MD Creatinine [Mass/Vol] 0.59 mg/dL Normal 0.50-0.90 [facility] Comment on above: Performed By: #### P HEP, HIVCMB #### [address] [address] Cna Hha: Yoshi Armenta MD #### CBC, CP, HCG #### [facility] [address] [place] [address] Cna Hha: Hao Louis MD GFR, Amer >60 Normal >60 [facility] Comment on above: Performed By: #### P HEP, HIVCMB #### [address] [address] Cna Hha: Yoshi Armenta MD #### CBC, CP, HCG #### [facility] [address] [place], [place] [id number] Cna Hha: Hao Louis MD GFR,non Amer >60 Normal >60 [facility] Comment on above: Performed By: #### P HEP, HIVCMB #### [address] [address] Cna Hha: Yoshi Armenta MD #### CBC, CP, HCG #### [address] [place], [place] [address] Cna Hha: Hao Louis MD Glucose [Mass/Vol] 103 mg/dL High 70-99 [facility] Comment on above: Performed By: #### P HEP, HIVCMB #### [address] [address] Cna Hha: Yoshi Armenta MD #### CBC, CP, HCG #### [address] [place], [place] [address] Cna Hha: Hao Louis MD Potassium [Moles/Vol] 5.1 mmol/L Normal 3.7-5.3 [facility] Comment on above: Performed By: #### P HEP, HIVCMB #### [address] [address] Cna Hha: Yoshi Armenta MD #### CBC, CP, HCG #### [address] [place] [address] Cna Hha: Hao Louis MD Protein [Mass/Vol] 7.7 g/dL Normal 6.4-8.3 [facility] Comment on above: Performed By: #### P HEP, HIVCMB #### [address] [address] Cna Hha: Yoshi Armenta MD #### CBC, CP, HCG #### [address] [place] [address] Cna Hha: Hao Louis MD Sodium [Moles/Vol] 137 mmol/L Normal 135-144 [facility] Comment on above: Performed By: #### P HEP, HIVCMB #### [address] [address] Cna Hha: Yoshi Armenta MD #### CBC, CP, HCG #### [address] [place] [address] Cna Hha: Hao Louis MD Staging: Normal [facility] Comment on above: Result Comment: Stag e 1: Some kidney damage normal GFR Stage 2: Mild kidney damage GFR 60-89 Stage 3: Moderate kidney damage GFR 30-59 Stage 4: Severe kidney damage GFR 15-29 Stage 5: Severe kidney damage GFR <15 ESRD - chronic treatment by dialysis or transplant Performed By: #### P HEP, HIVCMB #### [address] [address] Cna Hha: Yoshi Armenta MD #### CBC, CP, HCG #### [address] [place] [address] Cna Hha: Hao Louis MD Urea nitrogen [Mass/Vol] 10 mg/dL Normal 6-20 [facility] Comment on above: Performed By: #### P HEP, HIVCMB #### [address] [address] Cna Hha: Yoshi Armenta MD #### CBC, CP, HCG #### [address] [place] [address] Cna Hha: Hao Louis MD Comprehensive Metabolic Pane [facility] 11-23-2018 Albumin [Mass/Vol] 4 g/dL 3.5 - 5.2 g/dL [place], [place] Albumin/Globulin [Mass ratio] 1.1 {ratio} [place] ALP [Catalytic activity/Vol] 101 U/L 35 - 104 U/L [place] ALT [Catalytic activity/Vol] 204 U/L High 5 - 33 U/L [place] Anion gap [Moles/Vol] 11 mmol/L 9 - 17 mmol/L [place] AST [Catalytic activity/Vol] 135 U/L High <32 [place] Bilirubin Ql (U) 0.31 mg/dL 0.3 - 1.2 mg/dL [place] Bun/Cre Ratio 17 [place], [place] Calcium [Mass/Vol] 9.8 mg/dL 8.6 - 10. 4 mg/dL [place] Chloride [Moles/Vol] 100 mmol/L 98 - 107 mmol/L [place] CO2 [Moles/Vol] 26 mmol/L 20 - 31 mmol/L [place] Creatinine [Mass/Vol] 0.59 mg/dL 0.5 - 0.9 mg/dL [place] GFR >60 >60 mL/min [place] GFR Non- >60 >60 mL/min [place] Glucose [Mass/Vol] 103 mg/dL High 70 - 99 mg/dL [place], [place] Interpretation and review of laboratory results Abnormal [place] Potassium [Moles/Vol] 5.1 mmol/L 3.7 - 5.3 mmol/L [place] Protein [Mass/Vol] 7.7 g/dL 6.4 - 8.3 g/dL [place], [place] Sodium [Moles/Vol] 137 mmol/L 135 - 144 mmol/L [place] Urea nitrogen [Mass/Vol] 10 mg/dL 6 - 20 mg/dL [place] HCG Qualitative, Serumon hCG Qual Negative NEGATIVE [place] Comment on above: Specimens with hCG l evels near the threshold of the test (25 mIU/mL) may give a negative or indeterminate result. In such cases, another test should be performed with a new specimen in 48-72 hours. If early is suspected clinically in this setting, correlation with quantitative serum b-hCG level is suggested. [facility] [employer] [facility] has confirmed the use of plasma for this test. This has not been cleared or approved by the U.S. Food and Drug Administration. The FDA has determined that such clearance is not necessary. HCG Screen, Bloodon 11-24-19 19 HCG Qn Negative Normal NEG [facility] Comment on above: Result Comment: Spec imens with hCG levels near the threshold of the test (25 mIU/mL) may give a negative or indeterminate result. In such cases, another test should be performed with a new specimen in 48-72 hours. If early is suspected clinically in this setting, correlation with quantitative serum b-hCG level is suggested. [employer] has confirmed the use of plasma for this test. This has not been cleared or approved by the U.S. Food and Drug Administration. The FDA has determined that such clearance is not necessary. Performed By: #### P HEP, HIVCMB #### [facility] [address] [place], [place] [id number] Cna Hha: Yoshi Armenta MD #### CBC, CP, HCG #### [address] [place] [address] Cna Hha: Hao Louis MD HIV Ag/Abon 11-23-2018 HIV Ag/Ab NONREACTIVE Normal NR [facility] Comment on above: Result Comment: No l aboratory evidence of HIV infection. If acute HIV infection is suspected, consider testing for HIV-1 RNA. Performed By: #### P HEP, HIVCMB #### [facility] [address] [place], [place] [id number] Cna Hha: Yoshi Armenta MD #### CBC, CP, HCG #### [facility] [address] [place] [address] Cna Hha: Hao Louis MD HIV Screenon 11-23-2018 HIV Ag/Ab NONREACTIVE NONREACTIVE [facility], [place] Comment on above: No laboratory eviden ce of HIV infection. If acute HIV infection is suspected, consider testing for HIV-1 RNA. Hepatitis Acute [facility] 11-23 Hep A Ab,IgM NONREACTIVE Normal [facility] Comment on above: Performed By: #### P HEP, HIVCMB #### [address] [address] Cna Hha: Yoshi Armenta MD #### CBC, CP, HCG #### [address] [place], [place] [id number] Cna Hha: Hao Louis MD Hep B Core Ab,IgM NONREACTIVE Normal [facility] Comment on above: Performed By: #### P HEP, HIVCMB #### [address] [address] Cna Hha: Yoshi Armenta MD #### CBC, CP, HCG #### [address] [place], [place] [id number] Cna Hha: Hao Louis MD Hep B Surf Ag NONREACTIVE Normal [facility] Comment on above: Performed By: #### P HEP, HIVCMB #### [address] [address] Cna Hha: Yoshi Armenta MD #### CBC, CP, HCG #### [address] [place], [place] [id number] Cna Hha: Hao Louis MD Hep C Ab REACTIVE Abnormal [facility] Comment on above: Result Comment: The hepatitis C procedure used in [...] Results reported to the appropriate Health Department Performed By: #### P HEP, HIVCMB #### [facility] [address] [place] [address] Cna Hha: Yoshi Armenta MD #### CBC, CP, HCG #### [facility] [address] [place] [address] Cna Hha: Hao Louis MD Hepatitis Panel, Acuteon HAV IgM IA Qn (S) NONREACTIVE NONREACTIVE [place], [place] Hep B Core Ab, IgM NONREACTIVE NONREACTIVE [place], [place] Hepatitis B Surface Ag NONREACTIVE NONREACTIVE [place], [place] Hepatitis C Ab REACTIVE Abnormal NONREACTIVE [place], [place] Comment on above: The hepatitis C procedure used in our [...] Results reported to the appropriate Health Department Interpretation and review of laboratory results Abnormal [place], [place] Metabolic Panelon 11-23-2018 GFR/1.73 sq M predicted among non-blacks MDRD (S/P/Bld) [Vol rate/Area] [place], [place] Comment on above: Stage 1: Some kidney damage normal GFR Stage 2: Mild kidney damage GFR 60-89 Stage 3: Moderate kidney damage GFR 30-59 Stage 4: Severe kidney damage GFR 15-29 Stage 5: Severe kidney damage GFR <15 ESRD - chronic treatment by dialysis or transplant Average GFR for 20-2 9 years old: 116 mL/min/1.73sq m Chronic Kidney Disease: <60 mL/min/1.73sq m Kidney failure: <15 mL/min/1.73sq m eGFR calculated using average adult body mass. Additional eGFR calculator available at: http://www.[employer]/multiple_crcl_2012.htm LUMBAR SPINE 2 OR 3 [facility] LUMBAR SPINE 2 OR 3 [facility] Department of Radiology [address] [place] [address] Patient Name: FRANCE BUSTOS : 1990 Sex: F Age: Race: White Pt. Location: 85 Patient Status: D Ordered Date: 03/02/2018 11:05:00 AM Completed Date: 03/02/2018 11:10 AM Requesting Provider: KEVON ESTRADA Attending Provider: KEVON ESTRADA Report Copy To: ESTEE BURR Signs & Symptoms: M48.56XD Collapsed vert, NEC, lumbar region, subs for fx w routn heal I10 History: Iqra Comments: , in one month; follow up L1 compression fracture healing , Views (X-RAY, LUMBAR SPINE): AP, Lateral, L5-S1 Spot , in one month; follow up L1 compression fracture healing , Views (X-RAY, LUMBAR SPINE): AP, Lateral, L5-S1 Spot , , , Ordering Provider - A NATALIE MSN MARKING MACHINE TENDER , Exam: LUMBAR SPINE 2 OR 3 VWS LUMBAR SPINE 2 OR 3 VWS 03/02/2018 11:10 AM EST SIGNS AND SYMPTOMS: M48.56XD Collapsed vert, NEC, lumbar region, subs for fx w routn heal I10 TECHNOLOGIST COMMENTS: lower back pain from side to side, injured falling from porch 5-6 weeks ago QUESTION FOR RADIOLOGIST: , in one month; follow up L1 compression fracture healing , Views (X-RAY, LUMBAR SPINE): AP, Lateral, L5-S1 Spot , in one month; follow up L1 compression fracture healing , ...More In Sending System PROTOCOL: AP, Lateral and L5-S1 spot film was obtained. COMPARISON: None. FINDINGS: Bones: Similar appearing limbus vertebra of the anterior superior L4 vertebral body. Compression fracture involving L1 vertebral body. Disk spaces: Preserved Facet joints: Within normal limits Alignment: Preserved IMPRESSION: 1. Similar appearing compression fracture of L1 vertebral body. 2. Limbus vertebra anterior superior endplate of L4 vertebral body, unchanged Approved by:Mellisa Mao on 03/02/2018 6:38 PM EST. I, Jackie Wolf, have reviewed the images and report and concur with these findings. Electronically signed by:Jackie Wolf. Transcribed by: [email or web address], User Resident: MELLISA MAO Electronically Signed by: JACKIE WOLF @ 03/02/2018 10:20 PM I personally read this/these film(s) with this resident Normal [facility] Comment on above: Order Comment: No: D o not add to previous draw LUMBAR SPINE 2 OR 3 [facility] LUMBAR SPINE 2 OR 3 [facility] Department of Radiology [address] [place] [id number] Patient Name: FRANCE BUSTOS : 1990 Sex: F Age: Race: White Pt. Location: Patient Status: D Ordered Date: 02/02/2018 3:10:00 PM Completed Date: 02/02/2018 03:16 PM Requesting Provider: KEVON ESTRADA Attending Provider: KEVON ESTRADA Report Copy To: ESTEE BURR Signs & Symptoms: M48.56XD Collapsed vert, NEC, lumbar region, subs for fx w routn heal I10 History: Iqra Comments: , follow up healing of lumbar compression fracture , Views (X-RAY, LUMBAR SPINE): AP, Lateral, L5-S1 Spot , Weight Bearing?: Y , With or Without Brace/Cast/Collar: With , follow up healing of lumbar compression fracture , Views (X-RAY, LUMBAR SPINE): AP, Lateral, L5-S1 Spot , Weight Bearing?: Y , With or Without Brace/Cast/Collar: With , , , Ordering Provider - Jewel CHEN MARKING MACHINE TENDER , Exam: LUMBAR SPINE 2 OR 3 VWS LUMBAR SPINE 2 OR 3 VWS 02/02/2018 3:16 PM EST SIGNS AND SYMPTOMS: M48.56XD Collapsed vert, NEC, lumbar region, subs for fx w routn heal I10 TECHNOLOGIST COMMENTS: L1 compression fx 2 weeks ago QUESTION FOR RADIOLOGIST: , follow up healing of lumbar compression fracture , Views (X-RAY, LUMBAR SPINE): AP, Lateral, L5-S1 Spot , Weight Bearing?: Y , With or Without Brace/Cast/Collar: With , ...More In Sending System PROTOCOL: AP, Lateral and L5-S1 spot film was obtained. COMPARISON: CT lumbar spine January 22, 2018 FINDINGS: Lumbar spine 3 views. Stable anterior compression fracture at L1. There is approximately 50% vertebral body height loss. The remaining vertebral body heights are within normal limits. limbus vertebra at L4. The intervertebral disc spaces are well-preserved. Nonobstructive bowel gas pattern. IMPRESSION: Stable anterior compression fracture at L1, similar to prior CT 01/22/2018. Approved by:Bill Glover on 02/02/2018 6:55 PM EST. I, Milton Vang, have reviewed the images and report and concur with these findings. Electronically signed by:Milton Vang. Transcribed by: [email or web address], User Resident: BILL GLOVER Electronically Signed by: MILTON VANG @ 02/03/2018 03:52 PM I personally read this/these film(s) with this resident Normal [facility] Comment on above: Order Comment: , fol low up healing of lumbar compression fracture , Views (X-RAY, LUMBAR SPINE): AP, Lateral, L5-S1 Spot , Weight Bearing?: Y , With or Without Brace/Cast/Collar: With , follow up healing of lumbar compression fracture , Views (X-RAY, LUMBAR SPINE): AP, Lateral, L5-S1 Spot , Weight Bearing?: Y , With or Without Brace/Cast/Collar: With , , , Ordering Provider - Jewel ESTRADA MSN MARKING MACHINE TENDER , APTTon 01-23-2018 aPTT Coag (Bld) [Time] 30.3 s Normal 25.0-35.0 [facility] Comment on above: Order Comment: No: D o not add to previous draw Result Comment: ALL RESULTS MUST BE INTERPRETED WITH RESPECT TO BLOOD DRAWING ARTIFACT OR DILUTION ERROR OF ANTICOAGULANT AT THE TIME OF SAMPLING. THE APTT SHOULD NOT BE USED TO MONITOR UNFRACTIONATED HEPARIN THERAPY, THIS LABORATORY NO LONGER HAS AN ESTABLISHED THERAPEUTIC RANGE BASED ON THE APTT. IT IS RECOMMENDED THAT THE [facility] - HEPARIN ASSAY (ANTI-XA ACTIVITY) BE USED FOR THIS PURPOSE. Performed By: #### 5 [id number], [id number] #### [facility] [address] [place] [address], [facility] BASIC METABOLIC PANELon 10-2 Calcium [Mass/Vol] 8.5 mg/dL Low 8.6-10.[address] [facility] Comment on above: Order Comment: No: D o not add to previous draw Performed By: #### 0 0071 #### [facility] [address] [place] [address], [place] Chloride [Moles/Vol] 107 mmol/L Normal 98-107 [facility] Comment on above: Order Comment: No: D o not add to previous draw Performed By: #### 0 0071 #### [facility] [address] [place] [address], [place] CO2 [Moles/Vol] 23 mmol/L Normal 21-31 [facility] Comment on above: Order Comment: No: D o not add to previous draw Performed By: #### 0 0071 #### [facility] [address] [place] [address], [facility] Creatinine [Mass/Vol] 0.64 mg/dL Normal 0.60-1.20 [facility] Comment on above: Order Comment: No: D o not add to previous draw Performed By: #### 0 0071 #### [facility] [address] [place] [address], [place] GFR/1.73 sq M predicted among blacks MDRD (S/P/Bld) [Vol rate/Area] mL/min/{1.73_m2} Normal >60 [facility] Comment on above: Order Comment: No: D o not add to previous draw Performed By: #### 0 0071 #### [facility] [address] [place] [address], [facility] GFR/1.73 sq M predicted among non-blacks MDRD (S/P/Bld) [Vol rate/Area] mL/min/{1.73_m2} Normal >60 [facility] Comment on above: Order Comment: No: D o not add to previous draw Performed By: #### 0 0071 #### [facility] [address] [place] [address], [place] Glucose [Mass/Vol] 95 mg/dL Normal 70-100 [facility] Comment on above: Order Comment: No: D o not add to previous draw Performed By: #### 0 0071 #### [facility] [address] [place] [address], [place] Potassium [Moles/Vol] 4.0 mmol/L Normal 3.5-5.1 [facility] Comment on above: Order Comment: No: D o not add to previous draw Performed By: #### 0 0071 #### [facility] [address] [place] [id number], [facility] Sodium [Moles/Vol] 135 mmol/L Low 136-[address] [facility] Comment on above: Order Comment: No: D o not add to previous draw Performed By: #### 0 0071 #### [facility] [address] [place] [address], [facility] Urea nitrogen [Mass/Vol] 18 mg/dL Normal 7-25 [facility] Comment on above: Order Comment: No: D o not add to previous draw Performed By: #### 0 0071 #### [facility] [address] [place] [address], [facility] CBC COMPLETE BLOOD COUNTon Erythrocyte distribution width (RBC) [Ratio] 13.4 % Normal 11.5-15.0 [facility] Comment on above: Order Comment: No: D o not add to previous draw Performed By: #### 5 0608 #### [facility] [address] [place] [address], [facility] Hematocrit (Bld) [Volume fraction] 35.8 % Low 36.0-45.0 [facility] Comment on above: Order Comment: No: D o not add to previous draw Performed By: #### 5 0608 #### [facility] [address] [place] [address], [facility] Hemoglobin (Bld) [Mass/Vol] 11.7 g/dL Low 12.0-15.0 [facility] Comment on above: Order Comment: No: D o not add to previous draw Performed By: #### 5 0608 #### [facility] [address] [place] [address], [facility] MCH (RBC) [Entitic mass] 29.3 pg Normal 27.0-33.0 [facility] Comment on above: Order Comment: No: D o not add to previous draw Performed By: #### 5 0608 #### [facility] [address] MCHC (RBC) [Mass/Vol] 32.7 g/dL Normal 32.0-35.0 [facility] Comment on above: Order Comment: No: D o not add to previous draw Performed By: #### 5 0608 #### [facility] [address] [place] [address], [facility] MCV (RBC) [Entitic vol] 89.5 fL Normal 82.0-98.0 [facility] Comment on above: Order Comment: No: D o not add to previous draw Performed By: #### 5 0608 #### [facility] [address] [place] [address], [facility] Nucleated RBC/100 WBC (Bld) [Ratio] 0 % Normal 0-0 [facility] Comment on above: Order Comment: No: D o not add to previous draw Performed By: #### 5 0608 #### [facility] [address] [place] [address], [facility] PLAT CNT 166 10*3/uL Normal 150-400 [facility] Comment on above: Order Comment: No: D o not add to previous draw Performed By: #### 5 0608 #### [facility] [address] [place] [address], [facility] RBC (Bld) [#/Vol] 4.00 10*6/uL Normal 3.80-5.00 The [facility] Comment on above: Order Comment: No: D o not add to previous draw Performed By: #### 5 0608 #### [facility] [address] [place] [address], [facility] WBC (Bld) [#/Vol] 5.85 10*3/uL Normal 4.00-10.60 [facility] Comment on above: Order Comment: No: D o not add to previous draw Performed By: #### 5 0608 #### [facility] [address] [place] [address], [facility] CBC W/DIFFon 01-23-2018 ABS BASOPHILS 0.0 10*3/uL Normal 0.0-0.2 The [facility] Comment on above: Order Comment: No: D o not add to previous draw Performed By: #### 5 0103 #### [facility] [address] [place] [address], [facility] ABS IMM GRANS 0.0 10*3/uL Normal 0.0-0.2 [facility] Comment on above: Order Comment: No: D o not add to previous draw Performed By: #### 5 0103 #### [facility] [address] [place] [address], [facility] ABS NEUTROPHILS 4.1 10*3/uL Normal 1.6-7.6 The [facility] Comment on above: Order Comment: No: D o not add to previous draw Performed By: #### 5 0103 #### [facility] [address] [place] [address], [facility] Basophils/100 WBC (Bld) 0.1 % Normal 0.0-1.0 [facility] Comment on above: Order Comment: No: D o not add to previous draw Performed By: #### 5 0103 #### [facility] [address] [place] [address], [facility] Eosinophils (Bld) [#/Vol] 0.0 10*3/uL Normal 0.0-0.5 [facility] Comment on above: Order Comment: No: D o not add to previous draw Performed By: #### 5 0103 #### [facility] [address] [place] [address], [facility] Eosinophils/100 WBC (Bld) 0.3 % Normal 0.0-6.0 [facility] Comment on above: Order Comment: No: D o not add to previous draw Performed By: #### 5 0103 #### [facility] [address] [facility]. [address] Erythrocyte distribution width (RBC) [Ratio] 13.3 % Normal 11.5-15.0 [facility] Comment on above: Order Comment: No: D o not add to previous draw Performed By: #### 5 0103 #### [facility] [address] [place] [id number], [facility] Hematocrit (Bld) [Volume fraction] 37.9 % Normal 36.0-45.0 [facility] Comment on above: Order Comment: No: D o not add to previous draw Performed By: #### 5 0103 #### [facility] [address] [place] [address], [facility] Hemoglobin (Bld) [Mass/Vol] 12.2 g/dL Normal 12.0-15.0 [facility] Comment on above: Order Comment: No: D o not add to previous draw Performed By: #### 5 0103 #### [facility] [address] [place] [address], [facility] IMMATURE GRANS 0.3 % Normal 0.0-1.0 The [facility] Comment on above: Order Comment: No: D o not add to previous draw Performed By: #### 5 3 #### [facility] [address] [place] [address], [facility] Lymphocytes (Bld) [#/Vol] 2.2 10*3/uL Normal 1.2-4.0 [facility] Comment on above: Order Comment: No: D o not add to previous draw Performed By: #### 5 0103 #### [facility] [address] [place] [id number], [facility] Lymphocytes/100 WBC (Bld) 31.2 % Normal 20.0-45.0 [facility] Comment on above: Order Comment: No: D o not add to previous draw Performed By: #### 5 3 #### [facility] [address] [place] [address], [facility] MCH (RBC) [Entitic mass] 29.2 pg Normal 27.0-33.0 [facility] Comment on above: Order Comment: No: D o not add to previous draw Performed By: #### 5 0103 #### [facility] [address] [place] [address], [facility] MCHC (RBC) [Mass/Vol] 32.2 g/dL Normal 32.0-35.0 [facility] Comment on above: Order Comment: No: D o not add to previous draw Performed By: #### 5 0103 #### [facility] [address] [place] [address], [facility] MCV (RBC) [Entitic vol] 90.7 fL Normal 82.0-98.0 [facility] Comment on above: Order Comment: No: D o not add to previous draw Performed By: #### 5 0103 #### [facility] [address] [place] [id number], [facility] Monocytes (Bld) [#/Vol] 0.6 10*3/uL Normal 0.1-1.0 [facility] Comment on above: Order Comment: No: D o not add to previous draw Performed By: #### 5 0103 #### [facility] [address] [place] [address], [facility] MONOS 9.0 % Normal 5.0-12.0 [facility] Comment on above: Order Comment: No: D o not add to previous draw Performed By: #### 5 0103 #### [facility] [address] [place] [address], [facility] Neutrophils/100 WBC (Bld) 59.1 % Normal 40.0-72.0 [facility] Comment on above: Order Comment: No: D o not add to previous draw Performed By: #### 5 0103 #### [facility] [address] Nucleated RBC/100 WBC (Bld) [Ratio] 0 % Normal 0-0 [facility] Comment on above: Order Comment: No: D o not add to previous draw Performed By: #### 5 0103 #### [facility] [address] [place] [address], [facility] PLAT CNT 170 10*3/uL Normal 150-400 [facility] Comment on above: Order Comment: No: D o not add to previous draw Performed By: #### 5 0103 #### [facility] [address] [place] [address], [facility] RBC (Bld) [#/Vol] 4.18 10*6/uL Normal 3.80-5.00 The [facility] Comment on above: Order Comment: No: D o not add to previous draw Performed By: #### 5 0103 #### [facility] [address] [place] [address], [facility] WBC (Bld) [#/Vol] 6.98 10*3/uL Normal 4.00-10.60 [facility] Comment on above: Order Comment: No: D o not add to previous draw Performed By: #### 5 3 #### [facility] [address] [place] [address], [facility] COMP METABOLIC PANELon 01-23 Albumin [Mass/Vol] 3.4 g/dL Low 3.5-5.7 [facility] Comment on above: Order Comment: No: D o not add to previous draw Performed By: #### 0 0121 #### [facility] [address] [place] [address], [facility] ALKALINE PHOSPH 54 IU/L Normal 34-104 [facility] Comment on above: Order Comment: No: D o not add to previous draw Performed By: #### 0 0121 #### [facility] [address] [place] [address], [place] ALT [Catalytic activity/Vol] 12 U/L Normal 7-52 [facility] Comment on above: Order Comment: No: D o not add to previous draw Performed By: #### 0 0121 #### [facility] [address] [place] [address], [place] AST [Catalytic activity/Vol] 15 U/L Normal 13-39 [facility] Comment on above: Order Comment: No: D o not add to previous draw Performed By: #### 0 0121 #### [facility] [address] [place] [address], [place] Bilirubin [Mass/Vol] 0.4 mg/dL Normal 0.3-1.0 [facility] Comment on above: Order Comment: No: D o not add to previous draw Performed By: #### 0 0121 #### [facility] [address] [place] [address], [place] Calcium [Mass/Vol] 8.7 mg/dL Normal 8.6-10.3 [facility] Comment on above: Order Comment: No: D o not add to previous draw Performed By: #### 0 0121 #### [facility] [address] [place] [address], [place] Chloride [Moles/Vol] 105 mmol/L Normal 98-107 [facility] Comment on above: Order Comment: No: D o not add to previous draw Performed By: #### 0 0121 #### [facility] [address] [place] [address], [place] CO2 [Moles/Vol] 25 mmol/L Normal 21-31 [facility] Comment on above: Order Comment: No: D o not add to previous draw Performed By: #### 0 0121 #### [facility] [address] [place] [address], [place] Creatinine [Mass/Vol] 0.68 mg/dL Normal 0.60-1.20 [facility] Comment on above: Order Comment: No: D o not add to previous draw Performed By: #### 0 0121 #### [facility] [address] [place] [address], [place] GFR/1.73 sq M predicted among blacks MDRD (S/P/Bld) [Vol rate/Area] mL/min/{1.73_m2} Normal >60 [facility] Comment on above: Order Comment: No: D o not add to previous draw Performed By: #### 0 0121 #### [facility] [address] [place] [address], [place] GFR/1.73 sq M predicted among non-blacks MDRD (S/P/Bld) [Vol rate/Area] mL/min/{1.73_m2} Normal >60 [facility] Comment on above: Order Comment: No: D o not add to previous draw Performed By: #### 0 0121 #### [facility] [address] [place] [address], [place] Glucose [Mass/Vol] 98 mg/dL Normal 70-[address] [facility] Comment on above: Order Comment: No: D o not add to previous draw Performed By: #### 0 0121 #### [facility] [address] [place] [address], [place] Potassium [Moles/Vol] 3.4 mmol/L Low 3.5-5.1 [facility] Comment on above: Order Comment: No: D o not add to previous draw Performed By: #### 0 0121 #### [facility] [address] [place] [address], [place] Protein [Mass/Vol] 6.3 g/dL Normal 6.0-8.[address] [facility] Comment on above: Order Comment: No: D o not add to previous draw Performed By: #### 0 0121 #### [facility] [address] [place] [address], [place] Sodium [Moles/Vol] 136 mmol/L Normal 136-[address] [facility] Comment on above: Order Comment: No: D o not add to previous draw Performed By: #### 0 0121 #### [facility] [address] [place] [address], [facility] Urea nitrogen [Mass/Vol] 19 mg/dL Normal 7-25 [facility] Comment on above: Order Comment: No: D o not add to previous draw Performed By: #### 0 0121 #### [facility] [address] [place] [address], [facility] History and Physicalon 01-23 History and Physical MR#: [id number] [facility] Pt. Name: [place] Bustos Admitted: 01/22/2018 Date of : 1990 Attending Physician: Hans Kennedy MD Room #: [id number] Discharge Date: HISTORY AND PHYSICAL HISTORY OF PRESENT ILLNESS: The patient is a 27-year-old female, who fell off a 5 foot porch and landed on her buttocks on 01/20/2018. The patient states when she landed, she has severe sharp pain in her lower back. She also had numbness and tingling that radiated down her bilateral lower extremities on the anterior surface. The patient states she initially went to [facility] Emergency Department at that time. The patient received a CT scan and was found to have a L1 compression fracture. The patient was prescribed some narcotics and instructed to schedule a followup outpatient appointment with Orthopedic Surgery. The patient states she called the orthopedic surgeon the following day, but cannot get an outpatient appointment until 2 weeks from her initial injury day. The patient states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 single result KWABENA SANTIAGO Start: 11-23-2018 Blood count complete automated KWABENA SANTIAGO Start: 11-23-2018 Comprehensive metabo lic panel KWABENA SANTIAGO Start: 11-23-2018 Gonadotropin chorion ic qualitative KWABENA SANTIAGO Start: 11-23-2018 Acute hepatitis panel E carolann Santiago Work Phone: Start: 11-23-2018 Antibody hiv-1&hiv-2 single result Kwabena Santiago Work Phone: Start: 11-23-2018 Blood count complete automated Kwabena Santiago Work Phone: Start: 11-23-2018 Comprehensive metabo lic panel Kwabena Santiago Work Phone: Start: 11-23-2018 Gonadotropin chorion ic qualitative Kwabena Santiago Work Phone: Nany Greenberg Plan of Treatment Date Care Activity Detail Author Start: 09-24-2025 End: 09-24-2025 Patient encounter procedure 09/24/2025 2:00 PM EDT Office Visit [facility] [address] [place] [id number] Shiela Jaramillo PA [address] [place] [address] [facility] Start: 06-28-2025 Screening for malign ant neoplasm of cervix [facility] Start: 11-26-2024 Influenza vaccination Influenz a Vaccine (Season Ended) [facility] Start: 10-26-2024 Influenza vaccination B on [facility] Start: 10-17-2024 End: 10-17-2024 Patient encounter procedure 10/17/2024 1:30 PM EDT Office Visit [facility] [address] [place] [id number] Shiela Jaramillo, PA [address] [place] [address] [facility] Start: 10-08-2024 End: 10-08-2024 Professional / ancillary services management 10/08/2024 11:00 AM EDT Ancillary Procedure [facility] [address] [place] [place] [id number] [facility] Start: 09-18-2024 End: 09-18-2025 DHEA DHEA Lab Routine PCOS (polycystic ovarian syndrome) Expected: 09/18/2024 (Approximate), Expires: 09/18/2025 [facility] Comment on above: Expected: 09/18/2024 (Approximate), Expires: 09/18/2025 Start: 09-18-2024 End: 09-18-2025 Lipid 1996 panel - Serum or Plasma Lipid panel Lab Routine Well woman exam with routine gynecological exam Expected: 09/18/2024 (Approximate), Expires: 09/18/2025 [facility] Comment on above: Expected: 09/18/2024 (Approximate), Expires: 09/18/2025 Start: 09-18-2024 End: 09-18-2025 US Pelvis US Pelvis w/ TV Imaging Routine PCOS (polycystic ovarian syndrome) Expected: 09/18/2024 (Approximate), Expires: 09/18/2025 [facility] Comment on above: Expected: 09/18/2024 (Approximate), Expires: 09/18/2025 Start: 09-18-2024 [facility] Start: 02-04-2024 End: 02-03-2025 Cardiac holter monitor (1 day-2 day) [facility] [employer] Comment on above: Expected: 02/04/2024 , Expires: 02/03/2025 1 Occurrences starti ng 02/04/2024 until 02/04/2024 Start: 11-27-2023 COVID-19 Vaccine ( season) COVID-19 Vaccine ( season) [employer] Start: 11-27-2023 COVID-19 Vaccine ( season) COVID-19 Vaccine ( season) [employer] Start: 10-27-2023 Influenza vaccination Flu vaccine (# 1) [employer] Start: 10-26-2022 Influenza vaccination Flu vaccine (# 1) [employer] Start: 10-26-2021 Influenza vaccination Flu vaccine (# 1) [facility] Start: 09-13-2021 DTaP/Tdap/Td vaccine (2 - Td or Tdap) DTaP/Tdap/Td vaccine (2 - Td or Tdap) [facility] Start: 07-20-2019 Screening for malign ant neoplasm of cervix [facility] Start: 11-26-2018 Influenza vaccination Flu vaccine (# 1) [facility] [place], [place] Start: 2010 Screening for malign ant neoplasm of cervix Pap smear [facility] Start: 2008 DTaP/Tdap/Td vaccine (1 - Tdap) DTaP/Tdap/Td vaccine (1 - Tdap) [facility] Start: 2008 Hepatitis B vaccine (1 of 3 - 19+ 3-dose series) Hepatitis B vaccine (1 of 3 - 19+ 3-dose series) [facility] Start: 2008 Pneumococcal 0-49 ye ars Vaccine (1 of 2 - PCV) Pneumococcal 0-49 years Vaccine (1 of 2 - PCV) [facility] Start: 2002 Varicella vaccine (1 of 2 - 13+ 2-dose series) Varicella vaccine (1 of 2 - 13+ 2-dose series) [facility] Start: 2001 Depression Screen Depression Screen [facility] Start: 07-20-1995 Pneumococcal 0-64 ye ars Vaccine (1 - PCV) Pneumococcal 0-64 years Vaccine (1 - PCV) [facility] Start: 07-20-1995 Pneumococcal 0-64 ye ars Vaccine (1 of 2 - PCV) Pneumococcal 0-64 years Vaccine (1 of 2 - PCV) [facility] Start: 1990 Varicella vaccine (1 of 2 - 2-dose childhood series) Varicella vaccine (1 of 2 - 2-dose childhood series) [facility] Start: 01-18-1990 COVID-19 Vaccine (#1) COVID-19 Vacci ne (#1) [facility] CBC W Auto Different ial panel - Blood [facility] Comment on above: Ordered: 09/18/2024 Comprehensive metabo lic 2000 panel - Serum or Plasma Comprehensive metabolic panel Lab Routine Well woman exam with routine gynecological exam Ordered: 09/18/2024 [employer] Comment on above: Ordered: 09/18/2024 End: 04-25-2022 Culture, Urine [employer] Phone: Comment on above: Once for 1 Occurrenc es starting 04/25/2022 until 04/25/2022 Cytology Cervical or vaginal smear or scraping study Pap Smear Pathology and Cytology Routine Well woman exam with routine gynecological exam Ordered: 09/18/2024 [employer] Work Phone: Comment on above: Ordered: 09/18/2024 DHEA-sulfate DHEA-sulfate Lab Routine PCOS (polycystic ovarian syndrome) Ordered: 09/18/2024 [employer] Comment on above: Ordered: 09/18/2024 EKG 12 Lead EKG 12 Lead ECG Routine 03/13/2019 9:16 AM [employer] Phone: EKG 12 Lead EKG 12 Lead ECG STAT 02/04/2024 12:14 AM [employer] Follicle stimulating hormone Follicle stimulating hormone Lab Routine PCOS (polycystic ovarian syndrome) Ordered: 09/18/2024 [employer] Comment on above: Ordered: 09/18/2024 hCG, quantitative, hCG, quantitative, Lab Routine PCOS (polycystic ovarian syndrome) Ordered: 09/18/2024 [employer] Comment on above: Ordered: 09/18/2024 Hemoglobin A1c/Hemoglobin.total in Blood [employer] Comment on above: Ordered: 09/18/2024 End: 03-13-2019 Hepatitis C RNA, quantitative, PCR Hepatitis C RNA, quantitative, PCR Lab Routine Once for 1 Occurrences starting 03/13/2019 until 03/13/2019 [employer] Phone: Comment on above: Once for 1 Occurrenc es starting 03/13/2019 until 03/13/2019 Hepatitis C RNA, quantitative, PCR Hepatitis C RNA, quantitative, PCR Lab Routine 03/13/2019 9:19 AM [employer] Phone: Human papilloma viru s DNA [Presence] in Unspecified specimen by Probe with amplification HPV DNA probe, amplified Microbiology Routine Well woman exam with routine gynecological exam Ordered: 09/18/2024 [employer] Comment on above: Ordered: 09/18/2024 Luteinizing hormone Luteinizing hormone Lab Routine PCOS (polycystic ovarian syndrome) Ordered: 09/18/2024 [facility] [employer] Comment on above: Ordered: 09/18/2024 End: 02-04-2024 Portable XR Chest AP single view XR CHEST PORTABLE Imaging STAT Once for 1 Occurrences starting 02/04/2024 until 02/04/2024 [employer] Comment on above: Once for 1 Occurrenc es starting 02/04/2024 until 02/04/2024 Portable XR Chest AP single view XR CHEST PORTABLE Imaging STAT 02/04/2024 12:51 AM EST [employer] Thyrotropin [Units/volume] in Serum or Plasma [facility] [employer] Comment on above: Ordered: 09/18/2024 Thyroxine (T4) free [Mass/volume] in Serum or Plasma T4, free Lab Routine PCOS (polycystic ovarian syndrome) Ordered: 09/18/2024 [facility] [employer] Comment on above: Ordered: 09/18/2024 End: 03-19-2019 Urine culture clean catch Urine culture clean catch Microbiology Routine Once for 1 Occurrences starting 03/19/2019 until 03/19/2019 [employer] Work Phone: Comment on above: Once for 1 Occurrenc es starting 03/19/2019 until 03/19/2019 Urine culture clean catch Urine culture clean catch Microbiology Routine 03/19/2019 8:17 PM [employer] Phone: Immunizations Immunization Date Immunization Notes Care Provider Fa cility 05-26-2022 influenza virus vaccine, unspecified formulation Maribell Greenberg [facility] 01-20-2021 tetanus toxoid, redu rozina diphtheria toxoid, and acellular pertussis vaccine, adsorbed Moises Caittrina ESCALANTE Work Phone: [facility] 09-14-2011 tetanus toxoid, redu rozina diphtheria toxoid, and acellular pertussis vaccine, adsorbed Maribell Greenberg [facility] Comment on above: Reason for Medicatio n: Other (see comment) Payers Date Payer Category Payer Self-pay 2022 Private Health Insurance [employer] [id number] 2020 Medicaid [id number] 2017 Unknown [employer] xxxxxxxxxxx 2017-Present [phone] CLAIMS DEPARTMENT [address] [place] [address] xxxxxxxxxxx [id number] 1989 Unknown [id number] 2.16.840.1.169935.3.579.2. 647 1989 Unknown [id number] 2.16.840.1.347973.3.579.2. 647 1989 Unknown [id number] 2.16.840.1.751347.3.579.2. 177 1989 Unknown [id number] 2.16.840.1.309897.3.579.2. 177 1989 Unknown [id number] 2.16.840.1.886602.3.579.2. 177 1989 Unknown [id number] 2.16.840.1.226129.3.579.2. 175 1989 Unknown [id number] 2.16.840.1.478169.3.579.2. 593 1989 Unknown [id number] 2.16.840.1.115087.3.579.2. 593 1989 Unknown [id number] 2.16.840.1.255003.3.579.2. 593 1989 Unknown [id number] 2.16.840.1.102736.3.579.2. 593 1989 Unknown [id number] 2.16.840.1.084045.3.579.2. 593 1989 Unknown [id number] 2.16.840.1.726223.3.579.2. 1286 1989 Unknown [id number] 2.16.840.1.900792.3.579.2. 727 1989 Unknown [id number] 2.16.840.1.984291.3.579.2. 174 1989 Unknown [id number] 2.16.840.1.113895.3.579.2. 174 1989 Unknown [id number] 2.16.840.1.718632.3.579.2. 174 1989 Unknown [id number] 2.16.840.1.775308.3.579.2. 174 1989 Unknown [id number] 2.16.840.1.104847.3.579.2. 1259 1989 Unknown [id number] 2.16.840.1.075817.3.579.2. 1259 1959 Unknown [id number] 1959 Unknown [id number] Unknown [id number] 2.16.840.1.109039.3.579.2. 531 Social History Date Type Detail Facility Start: 03-02-2019 End: 08-11-2022 Tobacco smoking status NHIS Current every day smoker [facility] History of tobacco use Cigarette Smoker [place], [place] Start: 03-02-2019 End: 09-18-2024 Alcohol intake Current drinker of alcohol (finding) [place], [place] Start: 03-02-2019 Alcohol Comment [place], [place] Start: 1989 Sex Assigned At Not on file [facility] [place], [place] Start: 01-24-2022 Tobacco smoking stat us DCIS Ex-smoker [employer] History of tobacco use Current smoker [employer] Work Phone: Start: 01-24-2022 End: 08-11-2022 Tobacco use and exposure Smokeless tobacco non-user [employer] Work Phone: Start: 01-14-2022 End: 04-25-2022 Exposure to SARS-CoV-2 (event) Not sure [employer] Work Phone: Start: 04-25-2022 History SDOH Alcohol Frequency 1 [employer] Work Phone: Start: 04-25-2022 History SDOH Alcohol Std Drinks 0 [employer] Work Phone: History of tobacco use Tobacco U se Types Packs/Day Years Used Date Smoking Tobacco: Every Day E-Cigarettes Smokeless Tobacco: Never [employer] Start: 09-28-2022 History SDOH Alcohol Frequency 4 [employer] Start: 09-28-2022 History SDOH Alcohol Std Drinks 2 [employer] Start: 12-14-2020 Tobacco smoking status Light t obacco smoker (finding) [facility] Start: 09-27-2022 End: 09-19-2024 Sex Assigned At Female [facility] Start: 09-27-2022 End: 09-19-2024 History of Social function [employer] How often to you hav e a drink containing alcohol? 2-3 time sa week [employer] How many standard drinks containing alcohol do you have on a typical day? 3 or 4 [employer] How often do you hav e 6 or more drinks on 1 occasion? Weekly [employer] Read-Only, Retired: Physical Abuse Denies [employer] How often to you hav e a drink containing alcohol? Never [employer] Tobacco Current vaping o r e-cigarette use Smokeless Tobacco Use:. Cigarettes [facility] Comment on above: social use Tobacco [facility] [place] Start: 07-09-2009 End: 05-07-2012 Sex Female (finding) Ajit Jovani [facility] Start: 03-10-2023 Tobacco smoking stat NHIS Tobacco smoking consumption unknown [facility] How many standard drinks containing alcohol do you have on a typical day? 1 or 2 [facility] Start: 03-10-2023 Tobacco Comment Uses tobacco i n other forms [facility] Start: 09-18-2024 End: 09-19-2024 Alcoholic beverage intake Ex-drinker (finding) [employer] Start: 1990 Sex Assigned At Female F [facility] Functional Status Date Assessment Result Facility [facility] [employer] [facility] Clinical Notes 01-24-2022 to 09-24-2024 Gustabo Meier NP - 09/24/2024 4:40 PM CAN Bates - 09/18/2024 1:00 PM Sammie Ramon RCP - 02/04/2024 2:00 AM ESTDischarge InstructionsAttachmentsDischarge InstructionsAttachments Note Date & Type Note Facility 09-24-2024 History of Present illness Narrative Images from the original note were not included. [address] , [address] [facility], [address] P: [phone] F: [phone] HPI Historian of HPI: patient France Bustos is a 34 y.o. female who presents today to the Urgent Care with the following complaints and denials which have been present for 2 week(s) Pt c/o allergic reaction. Pt states during the summer she will break out in hives. She has been taking benadryl and usually it helps but it has not helped the last two weeks. Her face is puffy and has some redness. C/O Denies Symptom Comments [] [x] Lesion [x] [] Rash [] [x] Lump [] [x] Bump [] [x] Depression [] [x] abscess [] [x] cellulitis [x] [] itching [] [x] pain [x] [] burning [] [x] Sensation of insects crawling Additional Comments: pt has taken benadryl OTC medication with relief Pt denies any environmental changes. ROS A complete system ROS was performed and negative aside from the pertinent positives noted in the HPI and PE. PHYSICAL EXAM Examination General Examination: General Examination: alert, oriented, normal affect, well appearing, in no acute distress, well developed, well nourished Head: normocephalic, atraumatic Eyes: extraocular movement intact (EOMI) fundus normal, pupils equal, round, reactive to light Ears: external ears appear normal Nose: Nares patent Oral Cavity: mucosa moist Throat: clear Neck/Thyroid: neck supple, FROM Lymph Nodes: no cervical adenopathy Skin: pruritic rash, mild erythema at the upper lip, cheeks, bilateral legs, Heart: no murmurs, regular rate and rhythm, S1, S2 normal Lungs: clear to auscultation bilaterally Musculoskeletal: normal Extremities: no clubbing, cyanosis, or edema Peripheral Pulses: normal Neurologic: nonfocal cranial nerves 2-12 grossly intact Psych: alert, oriented, cognitive function intact, cooperative with exam TREATMENT PLAN 1. Dermatitis (Primary) Discussed diagnosis, use of medrol, triamcinolone cream and hydroxyzine as well as most common side effects. She is advised to continue as ordered. Follow up if continued or worsening symptoms. Advised to go to an stereoplotter operator for testing. - methylPREDNISolone (Medrol Dospak) 4 MG tablets; Follow schedule on package instructions Dispense: 21 tablet; Refill: 0 - triamcinolone (Kenalog) 0.5 % cream; Apply topically in the morning and in the evening and before bedtime. Do all this for 10 days. Dispense: 15 g; Refill: 0 2. Itching - hydrOXYzine pamoate (Vistaril) 25 MG capsule; Take 1 capsule (25 mg) by mouth every 8 (eight) hours if needed for itching for up to 10 days Dispense: 30 capsule; Refill: 0 documented in this encounter [facility] 09-18-2024 History of Present illness Narrative Reason for Appointment: Patient ID: France Bustos [...] of vertebral fracture Marijuana use Opioid abuse ([facility]) Opioid dependence (HCC) HISTORY PAST MEDICAL HISTORY SOCIAL HISTORY Past Medical History: Diagnosis Date BMI 25.0-25.9,adult Chronic hepatitis C (HCC) H/O LEEP H/O 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 History of vertebral fracture Broken Vertebraes in Back Marijuana use Opioid abuse ([facility]-HCC) Opioid dependence (HCC) Social History Tobacco Use [...] nursing note reviewed. Exam conducted with a hand edger present. Vitals: Estimated body mass index is 27.04 kg/m as calculated from the following: Height as [...] for Brixadi an extended release injection of buprenorphine. I believe her weight loss and appetite suppression with nausea could be due to new medication. We will order labs and ultrasound as well to rule out other possibilities Documented by Dawna Tolbert MA on behalf of: CAN Felix documented in this encounter [facility] 09-13-2024 Hospital Discharge instructions Patient Education 09/13/2024 14:27:21 Dental Pain Dental Pain Dental pain is often a sign that something is wrong with your teeth or gums. It is also something that can occur following dental treatment. If you have dental pain, it is important to contact your dental care provider, especially if the cause of the pain has not been determined. Dental pain may be of varying intensity and can be caused by many things, including: Tooth decay (cavities or caries). Cavities are caused by bacteria that produce acids that irritate the nerve of your tooth, making it sensitive to air and hot or cold temperatures. This eventually causes discomfort or pain. Abscess or infection. Once the bacteria reach the inner part of the tooth (pulp), a bacterial infection (dental abscess) can occur. Pus typically collects at the end of the root of a tooth. Injury. A crack in the tooth. Gum recession exposing the root, and possibly the nerves, of a tooth. Gum (periodontal)disease. Abnormal grinding or clenching. Poor or improper home care. An unknown reason (idiopathic). Your pain may be mild or severe. It may occur when you are: Chewing. Exposed to hot or cold temperatures. Eating or drinking sugary foods or beverages, such as soda or candy. Your pain may be constant, or it may come and go without cause. Follow these instructions at home: The following actions may help to lessen any discomfort that you are feeling before or after getting dental care. Medicines Take dnns-bsj-[id number] and prescription medicines only as told by your dental care provider. If you were prescribed an antibiotic medicine, take it as told by your dental care provider. Do not stop taking the antibiotic even if you start to feel better. Eating and drinking Avoid foods or drinks that cause you pain, such as: Very hot or very cold foods or drinks. Sweet or sugary foods or drinks. Managing pain and swelling Ice can sometimes be used to reduce pain and swelling, especially if the pain is following dental treatment. If directed, put ice on the painful area of your face. To do this: ?Put ice in a plastic bag. ?Place a towel between your skin and the bag. ?Leave the ice on for 20 minutes, 2 3 times a day. ?Remove the ice if your skin turns bright red. This is very important. If you cannot feel pain, heat, or cold, you have a greater risk of damage to the area. Brushing your teeth To keep your mouth and gums healthy, brush your teeth twice a day using a fluoride toothpaste. Use a toothpaste made for sensitive teeth as directed by your dental care provider, especially if the root is exposed. Always brush your teeth with a soft-bristled toothbrush. This will help prevent irritation to your gums. General instructions Floss at least once a day. Do not apply heat to the outside of the face. Gargle with a mixture of salt and water 3 4 times a day or as needed. To make salt water, completely dissolve 1 tsp (3 6 g) of salt in 1 cup (237 mL) of warm water. Keep all follow-up visits. This is important. Contact a dental care provider if: You have any unexplained dental pain. Your pain is not controlled with medicines. Your symptoms get worse. You have new symptoms. Get help right away if: You are unable to open your mouth. You are having trouble breathing or swallowing. You have a fever. You notice that your face, neck, or jaw is swollen. These symptoms may represent a serious problem that is an emergency. Do not wait to see if the symptoms will go away. Get medical help right away. Call your local emergency services (911 in the [place] Do not drive yourself to the hospital. Summary Dental pain may be caused by many things, including tooth decay and infection. Your pain may be mild or severe. Take cysa-eix-xiztqqa and prescription medicines only as told by your dental care provider. Watch your dental pain for any changes. Let your dental care provider know if your symptoms get worse. This information is not intended to replace advice given to you by your health care provider. Make sure you discuss any questions you have with your health care provider. Document Revised: 12/17/2020 Document Reviewed: 12/17/2020 [employer] Patient Education 2023 [email or web address] Follow Up Care 09/13/2024 14:15:09 With:Dionicio CHEN, LONGWALL SHEARER OPERATOR-MARKING MACHINE TENDER, Maribell Montes Address: [address] [place] [id number] When:1 to 2 weeks only if needed [facility] 09-13-2024 Note Patient Education Dentistry Dental Pain Dental pain is often a sign that something is wrong with your teeth or gums. It is also something that can occur following dental treatment. If you have dental pain, it is important to contact your dental care provider, especially if the cause of the pain has not been determined. Dental pain may be of varying intensity and can be caused by many things, including: ??? Tooth decay (cavities or caries). Cavities are caused by bacteria that produce acids that irritate the nerve of your tooth, making it sensitive to air and hot or cold temperatures. This eventually causes discomfort or pain. ??? Abscess or infection. Once the bacteria reach the inner part of the tooth (pulp), a bacterial infection (dental abscess) can occur. Pus typically collects at the end of the root of a tooth. ??? Injury. ??? A crack in the tooth. ??? Gum recession exposing the root, and possibly the nerves, of a tooth. ??? Gum (periodontal)disease. ??? Abnormal grinding or clenching. ??? Poor or improper home care. ??? An unknown reason (idiopathic). Your pain may be mild or severe. It may occur when you are: ??? Chewing. ??? Exposed to hot or cold temperatures. ??? Eating or drinking sugary foods or beverages, such as soda or candy. Your pain may be constant, or it may come and go without cause. Follow these instructions at home: The following actions may help to lessen any discomfort that you are feeling before or after getting dental care. Medicines ??? Take weht-rpy-zkdvqmp and prescription medicines only as told by your dental care provider. ??? If you were prescribed an antibiotic medicine, take it as told by your dental care provider. Do not stop taking the antibiotic even if you start to feel better. Eating and drinking Avoid foods or drinks that cause you pain, such as: ??? Very hot or very cold foods or drinks. ??? Sweet or sugary foods or drinks. Managing pain and swelling ??? Ice can sometimes be used to reduce pain and swelling, especially if the pain is following dental treatment. ??? If directed, put ice on the painful area of your face. To do this: ? Put ice in a plastic bag. ? Place a towel between your skin and the bag. ? Leave the ice on for 20 minutes, 2?3 times a day. ? Remove the ice if your skin turns bright red. This is very important. If you cannot feel pain, heat, or cold, you have a greater risk of damage to the area. Brushing your teeth ??? To keep your mouth and gums healthy, brush your teeth twice a day using a fluoride toothpaste. ??? Use a toothpaste made for sensitive teeth as directed by your dental care provider, especially if the root is exposed. ??? Always brush your teeth with a soft-bristled toothbrush. This will help prevent irritation to your gums. General instructions ??? Floss at least once a day. ??? Do not apply heat to the outside of the face. ??? Gargle with a mixture of salt and water 3?4 times a day or as needed. To make salt water, completely dissolve ??1 tsp (3?6 g) of salt in 1 cup (237 mL) of warm water. ??? Keep all follow-up visits. This is important. Contact a dental care provider if: ??? You have any unexplained dental pain. ??? Your pain is not controlled with medicines. ??? Your symptoms get worse. ??? You have new symptoms. Get help right away if: ??? You are unable to open your mouth. ??? You are having trouble breathing or swallowing. ??? You have a fever. ??? You notice that your face, neck, or jaw is swollen. These symptoms may represent a serious problem that is an emergency. Do not wait to see if the symptoms will go away. Get medical help right away. Call your local emergency services (911 in the [place] Do not drive yourself to the hospital. Summary ??? Dental pain may be caused by many things, including tooth decay and infection. ??? Your pain may be mild or severe. ??? Take efyd-tgj-pomfgqk and prescription medicines only as told by your dental care provider. ??? Watch your dental pain for any changes. Let your dental care provider know if your symptoms get worse. This information is not intended to replace advice given to you by your health care provider. Make sure you discuss any questions you have with your health care provider. Document Revised: 12/17/2020 Document Reviewed: 12/17/2020 [employer] Patient Education ? 2023 [email or web address]. [facility] 02-04-2024 History of Present illness Narrative The patient was educated on the use of a holter monitor. The patient's comprehension was high. The patient was able to verbalize recall. The patient was instructed on how and when to return the monitor. documented in this encounter [facility] 09-27-2022 Hospital Discharge instructions Julissa Carbone MD - 09/27/2022 11:51 PM EDT Please [facility] up [facility] [place] [address] [place] [address] [address] [facility] Phone number : [phone] At 8 am and dont take no for an answer , he requested that he needs to see you The following attachments cannot be sent through Care Everywhere.Anisocoria: General Info (Bahamian)documented in this encounter [facility] 01-24-2022 Hospital Discharge instructions Reginaldo Jules MD - 01/24/2022 1:15 AM EDT Take Benadryl for itching. Do not drive or operate machinery while taking Benadryl. Take prednisone daily. Next dose noon on Tuesday. Call primary care doctor for close follow-up and possible allergy testing and outpatient referral The following attachments cannot be sent through Care Everywhere.Urticaria (Bahamian)documented in this encounter [facility] Work Phone: Evaluation + Plan note No data available for this section [facility] Medicine [facility] Evaluation note Diagnosis Urticaria- Primary Urticaria, unspecified documented in this encounter [facility] Work Phone: evaluation note* Diagnosis Nausea- Primary Nausea alone documented in this encounter [facility] Work Phone: evalyygtqb note* Diagnosis Anisocoria- Primary documented in this encounter [facility]* Diagnosis Palpitations- Primary [facility] Diagnosis Palpitations documented in this encounter [facility] [employer] [facility]* Diagnosis Well woman exam with routine gynecological exam Routine gynecological examination PCOS (polycystic ovarian syndrome) Polycystic ovaries [facility] Diagnosis Dehydration- Primary documented in this encounter [facility] [employer] S.AEvaluation note* Diagnosis Pain, dental- Primary Unspecified disorder of the teeth and supporting structures documented in this encounter [facility] [employer] [facility] noteNo assessment information available [facility] Work Phone: Evaluation note* Diagnosis Dermatitis- Primary Contact dermatitis and other eczema, due to unspecified cause Itching Unspecified pruritic disorder [facility] Diagnosis Urticaria- Primary Urticaria, unspecified documented in this encounter [facility] Discharge instructions* Attachments The following attachments cannot be sent through Care Everywhere. * Nausea and Vomiting (Bahamian) [facility] Work [facility]: Hospital Discharge instructions No data available for this section [facility] Hospital Discharge instructions* Attachments The following attachments cannot be sent through Care Everywhere. * Palpitations (Bahamian) [facility] Attachments The following attachments cannot be sent through Care Everywhere. * Oral Rehydration (Bahamian) [facility] Attachments The following attachments cannot be sent through Care Everywhere. * Tooth and Gum Pain (Bahamian) * Periodontal Conditions (Bahamian) [facility] No data available for this section [facility] Reason for referral (narrative)No reason for referral [facility] Work Phone: Summary Purpose Family History No Family History Records FoundNo Family History Records FoundNo Family History Records FoundNo Family History Records FoundNo Family History Records FoundNo Family History Records Found No data available for this section No Family History Records Found No data available for this section No Family History Records FoundNo Family History Records FoundNo Family History Records FoundNo Family History Records Found Advance Directives Documents on File Type Date Recorded 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 * UTI (Urinary Tract Infection): Female (Bahamian) documented in this encounter Assessments Diagnosis Urinary tract infection without hematuria, site unspecified- Primary Reason for Referral Specialty Diagnoses / Procedures Referred By Contac t Referred To Contact Cardiology Diagnoses Palpitations Procedures Cardiac holter monitor (1 day-2 day) MA XTRNL MOBILE CV TELEMETRY W/I&REPORT 30 DAYS MA XTRNL PT ACTIVATED ECG REC DWNLD 30 DAYS MA XTRNL MOBILE CV TELEMETRY W/TECHNICAL SUPPORT Marta Live MD [address] [place] [address] Referral ID Status Reason Start Date Expiration Date Visits Re quested Visits Authorized [id number] Closed 02/04/2024 02/03/2025 1 1 Specialty Diagnoses / Procedures Referred By Contac t Referred To Contact Diagnoses Palpitations Procedures Cardiac holter monitor (1 day-2 day) MA XTRNL MOBILE CV TELEMETRY W/I&REPORT 30 DAYS MA XTRNL PT ACTIVATED ECG REC DWNLD 30 DAYS MA XTRNL MOBILE CV TELEMETRY W/TECHNICAL SUPPORT Marta Live MD [address] [place] [address] [place] [address] Referral ID Status Reason Start Date Expiration Date Visits Re quested Visits Authorized [id number] Open 02/04/2024 02/03/2025 1 1 Additional Source Comments INFORMATION SOURCE (unrecogn ized section and content) DATE CREATED AUTHOR [facility]/2018 [facility] DATE CREATED AUTHOR AUTHOR'S ORGANIZ ATION 12/19/2018 [facility] DATE CREATED AUTHOR AUTHOR'S ORGANIZ ATION [facility] DATE CREATED AUTHOR AUTHOR'S ORGANIZ ATION 03/20/2019 [facility] DATE CREATED AUTHOR AUTHOR'S ORGANIZ ATION 05/30/2022 [facility] DATE CREATED AUTHOR AUTHOR'S ORGANIZ ATION 07/05/2022 [facility] DATE CREATED AUTHOR AUTHOR'S ORGANIZ ATION 05/20/2024 [facility] DATE CREATED AUTHOR AUTHOR'S ORGANIZ ATION 09/16/2024 [facility] DATE CREATED AUTHOR AUTHOR'S ORGANIZ ATION 09/21/2024 [facility] [place] [facility] DATE CREATED AUTHOR AUTHOR'S ORGANIZ ATION 09/26/2024 [facility] DATE CREATED AUTHOR AUTHOR'S ORGANIZ ATION 09/26/[address] [facility] Reason for Visit (unrecogniz ed section and content) Reason Comments Flank Pain lt flank pain / estela k urine today (denies N/V/D) Reason Comments Urticaria States breaks out in hives every fall/winter. Reason Comments Nausea Nausea and shakiness starting this morning. Last episode of emesis 30 minutes ago. Reason Comments Eye Problem Left eye pupil dilat ed and right is not. Vision blurry in left eye as well. Reason Comments Palpitations Pt started feeling h eart feeling funny. Started two days ago. Specialty Diagnoses / Procedures Referred By Contac t Referred To Contact Cardiology Diagnoses Palpitations Procedures Cardiac holter monitor (1 day-2 day) MA XTRNL MOBILE CV TELEMETRY W/I&REPORT 30 DAYS MA XTRNL PT ACTIVATED ECG REC DWNLD 30 DAYS MA XTRNL MOBILE CV TELEMETRY W/TECHNICAL SUPPORT Marta Live MD [address] [place] [address] [place] [address] Referral ID Status Reason Start Date Expiration Date Visits Re quested Visits Authorized [id number] Closed 02/04/2024 02/03/2025 1 1 Reason Comments Well Women Visit Reason Comments Illness Pt reports she was a t work yesterday and the AC went out. She started feeling anxious and started having episodes of emesis and hot flashes. Pt left work and went home. Pt reports migraine, nausea and emesis since this AM. Reason Comments Dental Pain Dental pain to right side. Was seen by dentist a few days ago but the script was not sent to the right place. Reason Comments Urticaria Patient states she b reaks out in hives every night during the summer, took benadryl and janelle. Ordered Prescriptions (unrec ognized section and content) Prescription Sig Dispensed Refills Start Date End Da te diphenhydrAMINE (BENADRYL) 50 MG capsule Take 1 capsule by mouth every 6 hours as needed for Itching 20 capsule 0 01/24/2022 02/03/2022 predniSONE (DELTASONE) 10 MG tablet 4 p.o. q. day for 3 days, 3 p.o. q. day for 3 days, 2 p.o. q. day for 3 days, one p.o. q. day for 3 days 30 tablet 0 01/24/2022 Prescription Sig Dispensed Refills Start Date End Da te ondansetron (ZOFRAN-ODT) 4 MG disintegrating tablet Take 1 tablet by mouth 3 times daily as needed for Nausea or Vomiting 21 tablet 0 04/25/2022 Prescription Sig Dispense Quantity Refills Last Filled Start Date End Date ondansetron (ZOFRAN) 4 MG tablet Take 1 tablet by mouth every 8 hours as needed for Nausea or Vomiting 12 tablet 09/18/2024 Prescription Sig Dispense Quantity Refills Last Filled Start Date End Date amoxicillin-clavul anate (AUGMENTIN) 875-125 MG per tablet Take 1 tablet by mouth 2 times daily for 10 days 20 tablet 09/19/2024 09/29/2024 Prescription Sig Dispense Quantity Refills Last Filled Start Date End Date hydrOXYzine pamoate (VISTARIL) 25 MG capsule Take 1 capsule by mouth 3 times daily as needed for Itching 30 capsule 10/31/2024 predniSONE (DELTASONE) 20 MG tablet 2 tablets daily x 3 days then 1 tablet daily 10 tablet 10/31/2024 Scheduled Active and Recently Administ ered Medications (unrecognized section and content) Medication Order 01/22/2022 01/23/2022 01/24/2022 diphenhydrAMINE (BENADRYL) tablet 50 mg (COMPLETED) 50 mg, Oral, ONCE, 1 dose, On 01/24/22 at 0115 0114 (Given - Provid er: Vickie Kc RN) predniSONE (DELTASONE) tablet 60 mg (COMPLETED) 60 mg, Oral, ONCE, 1 dose, On 01/24/22 at 0115 0114 (Given - Provid er: Vickie Kc RN) Scheduled Medication Order 04/23/2022 04/24/2022 04/25/2022 0.9 % sodium chloride bolus (COMPLETED) 500 mL (7.25 mL/kg), IntraVENous, at 1,000 mL/hr, Administer over 0.5 Hours, ONCE, On 04/25/22 at 1900, For 1 dose 1902 (New Bag - Prov ider: Bridget Allen RN)1944 (Stopped - Provider: Sherrell Currie RN) PRN Medication Order 04/23/2022 04/24/2022 04/25/2022 ondansetron (ZOFRAN) injection 4 mg 4 mg, IntraVENous, EVERY 1 HOUR PRN, 2 doses, Starting on Tue04/25/22 at 1848, Until Discontinued, Nausea, Vomiting 1902 (Given - Provid er: Bridget Allen RN) Scheduled Medication Order 09/26/2022 09/27/2022 09/28/2022 tetracaine (TETRAVISC) 0.5 % ophthalmic solution 1 drop (COMPLETED) 1 drop, Left Eye, ONCE, 1 dose, On Tue09/27/22 at 2145 2145 (Given - Provider: Dominick White RN) PRN Medication Order 09/26/2022 09/27/2022 09/28/2022 iopamidol (ISOVUE-370) 76 % injection 100 mL (COMPLETED) 100 mL, IntraVENous, IMG ONCE PRN, 1 dose, Starting on Tue09/27/22 at 2344, Until Discontinued, Other 0030 (Given - Provid er: Avani Zhang) Scheduled Medication Order 10/29/2024 10/30/2024 10/31/2024 diphenhydrAMINE [...] (Given - Provid er: Kayley Gordon RN) Care Teams (unrecognized sec tion and content) Cavity Pump Operator Relationship Specialty Start Date End Date Roel Bello [facility] [place] [address] [place] [address] PCP - General 01/24/22 Cavity Pump Operator Relationship Specialty Start Date End Date Roel Bello [facility] [address] [place] [place] [address] PCP - General 01/24/22 Cavity Pump Operator Relationship Specialty Start Date End Date Roel Bello [address] [place] [address] [address] [place], [place] [id number] PCP - General 01/24/22 Cavity Pump Operator Relationship Specialty Start Date End Date Roel Bello PCP - General 01/24/22 Cavity Pump Operator Relationship Specialty Start Date End Date Roel Bello PCP - General 01/24/22 Cavity Pump Operator Relationship Specialty Start Date End Date Brenda Vilchis NP [address], [facility] 12/27/23 Cavity Pump Operator Relationship Specialty Start Date End Date Brenda Vilchis NP [address], [facility] 12/27/23 Cavity Pump Operator Relationship Specialty Start Date End Date Roel Bello PCP - General 01/24/22 Cavity Pump Operator Relationship Specialty Start Date End Date Roel Bello PCP - [facility] 01/24/22 Team Status: Inactive Member Role Status Kory Chavira DO Attending Provider Active Start : September 18, 2024 End: September 18, 2024 Cavity Pump Operator Relationship Specialty Start Date End Date Brenda Vilchis NP [address] [place] [address] [facility] 12/27/23 Cavity Pump Operator Relationship Specialty Start Date End Date Brenda Vilchis NP [address], [facility] PCP - [facility] 12/27/23 Cavity Pump Operator Relationship Specialty Start Date End Date Roel Bello PCP - General 01/24/22 Goals (unrecognized section and content) Goals may be documented in a n alternate section FOR RECORDS PERTAINING TO PATIENTS WHO ARE OR HAVE BEEN ENROLLED IN A CHEMICAL DEPENDENCY/SUBSTANCEABUSE PROGRAM, SOME INFORMATION MAY BE OMITTED. This clinical summary was aggregated from multiple sources. Caution should be exercised in using it in the provision of clinical care. This summary normalizes information from multiple sources, and as a consequence, information in this document may materially change the coding, format and clinical context of patient data. In addition, data may be omitted in some cases. CLINICAL DECISIONS SHOULD BE BASED ON THE PRIMARY CLINICAL RECORDS. [facility] [employer] [facility]. provides no warranty or guarantee of the accuracy or completeness of information in this document.
[2024-10-31 18:55] VITALS: BP 120/62; PULSE 81; TEMP 36.9; O2SAT 98
--- NOTE | 2024-10-31 19:35 | ED_ITS ---
HPI - Allergic Reaction General Chief complaint: Allergic Reaction Stated complaint: Allergic Reaction Time Seen by Provider: 10/31/24 19:14 Source: patient Mode of arrival: walk-in Limitations: no limitations History of Present Illness HPI narrative: 34-year-old female presents to the emergency department with complaint of rash throughout her entire body. Onset yesterday. Went to another emergency department at 0100 hours this morning where she received IM injections as they could not obtain IV access. States medications did help. She was sent home with prednisone, 40 mg, daily. Reports rash has returned. States ongoing problems with hives since she was a child. Has not had any further workup as an adult. Was tested for food allergies as a child without obvious findings. Notes a rash to her face, little right upper lip swelling. Denies any shortness of breath, throat tightening, difficulty swallowing. Denies any known allergens, exposures, changes in soaps, lotions, detergents. Denies any fever or chills. Incidentally, she does have some concern about autoimmune disorder such as lupus. Has never been evaluated for it in the past Quality:?as above Severity:?moderate Timing:?as above Context: Normal setting and activity? Modifying factors:?as above Associated symptoms: as above Related Data Previous Rx's ?Medication ?Instructions ?Recorded cetirizine 10 mg capsule (Zyrtec) 10 mg PO DAILY #20 c aps 10/31/24 diphenhydramine HCl 25 mg capsule 25 - 50 mg (1 - 2 x 25 mg) PO .qhs 10/31/24 (Benadryl) PRN itching #10 caps famotidine 20 mg tablet (Pepcid) 20 mg PO BID #20 tabs 10/31/24 Allergies Allergy/AdvReac Type Severity Reaction Status Date / Time No Known Drug Allergies Allergy Verified 10/31/24 18:59 Review of Systems ROS Narrative CONST: Denies fever, chills HENT: Denies congestion, sore throat, trouble swallowing, tongue swelling EYES: Denies eye itching, eye redness, eye swelling RESP: Denies difficulty breathing, choking MS: Denies swelling SKIN: +rash.? Denies wound NEURO: Denies numbness, paresthesias, weakness Exam Narrative Exam Narrative: Vital signs reviewed Nurses notes noted CONST: Nontoxic, well appearing, well nourished, in no distress.? No diaphoresis.?? HENT: normocephalic, atraumatic, moist mucous membrane, no abnormalities of the nose noted, hearing normal. + Mild right upper lip swelling. Diffuse macular papular, somewhat wheal-like lesions noted to her face. EYES: normal appearing conjunctiva, no apparent discharge bilat NECK: normal appearance MS: no edema, tenderness SKIN: (+) RASH, wheal-like, consistent with urticaria throughout her body. Lesions carolee. They are nontender. They do not appear vesicular, pustule. No findings of concern for purpura, petechiae. NEURO: A&Ox 3 PSYCH: normal mood, affect Constitutional Vital Signs, click to edit/add: Last Vital Signs Temp 98.5 F 10/31/24 18:55 Pulse 81 10/31/24 18:55 Resp 16 10/31/24 18:55 BP 120/62 10/31/24 18:55 Pulse Ox 98 10/31/24 18:55 Course Reevaluation(s) Reevaluation #1: Patient feeling better. Rash has markedly improved. It has resolved on the face, arms, chest, back. Still present under the arms. Time: 20:42 Vital Signs Vital signs: Vital Signs Temperature 98.5 F 10/31/24 18:55 Pulse Rate 81 10/31/24 18:55 Respiratory Rate 16 10/31/24 18:55 Blood Pressure 120/62 10/31/24 18:55 Pulse Oximetry 98 10/31/24 18:55 Temperature 98.5 F 10/31/24 18:55 Pulse Rate 81 10/31/24 18:55 Respiratory Rate 16 10/31/24 18:55 Blood Pressure 120/62 10/31/24 18:55 Pulse Oximetry 98 10/31/24 18:55 MDM - Allergic Reaction MDM Narrative Medical decision making narrative: This is a pleasant 34-year-old female who presents to the emergency department for evaluation of itchy rash. Chronic history On arrival, afebrile, vital signs are stable Exam, nontoxic, well appearing patient in no distress. She has extensive rash throughout her entire body. The rash is red, does carolee. Some morphology including wheal-like, urticarial, and others maculopapular. Mild swelling to the right upper lip. Airway is clear. No wheezing, stridor on auscultation. Heart regular rate and rhythm. She was given IV Solu-Medrol, Pepcid, and Benadryl with overall improvement, resolution. IV access obtained, blood work drawn and sent to the lab Labs reveal no leukocytosis, anemia, thrombocytopenia. No electrolyte imbalance. We did send antinuclear body screen and rheumatoid factor screen on premise that patient was concerned about autoimmune etiology Favor urticaria Vasculitis less likely based on history and physical exam. Morphology of rash not consistent. Does not carolee Contact dermatitis less likely as it is widespread and rapidly improved with treatment Anaphylaxis less likely as patient did not have any shortness of breath, throat tightening Additional Tests and Interventions IV Fluids:hydration/inability to tolerate PO Re-Evaluation See ED course Disposition ? The patient was discharged. Prescriptions sent to pharmacy: Zyrtec for during the day, Benadryl nightly, Pepcid Plan: Patient will be discharged to home.? Condition at time of disposition: stable, improved.? Advised to follow up with referral provider, name and number placed on discharge paperwork. Advised to return for any worsening and/or development of new, concerning signs or symptoms PLEASE NOTE: Portions of the medical record may have been produced using electronic pathology secretary/transcriptionist and may contain errors with respect to translation of words which may not have been identified prior to finalization of the chart. Medical Records Attestation: I reviewed the patient's medical records. Lab Data Attestation: I reviewed the patient's lab results. Discharge Plan Discharge Stand Alone Forms: Portal Instructions Chief Complaint: Allergic Reaction Clinical Impression: Urticaria Patient Disposition: Home, Self-Care Time of Disposition Decision: 20:50 Condition: Good Mode of Transportation: Private Vehicle Prescriptions / Home Meds: New famotidine [Pepcid] 20 mg tablet 20 mg PO BID Qty: 20 0RF diphenhydramine HCl [Benadryl] 25 mg capsule 25 - 50 mg PO .qhs PRN (Reason: itching) Qty: 10 0RF Zyrtec 10 mg capsule 10 mg PO DAILY Qty: 20 0RF Print Language: Italian Instructions: Urticaria (ED) Additional Instructions: Dr. Alex Erwin [facility] [address] [facility] [address] [facility], [place] [address] [facility] [id number], [place] [address] [facility] - Dr. Alvarado [address] [place] [address] Renuka Scanlon MD [address] [address] Referrals: Physician,Non-Staff, [Primary Care Provider] - 1 week Discharge Date/Time: 10/31/24 21:19
[2024-10-31 19:56] LABS: Hematocrit 35.5 % (36.0-48.0); Hemoglobin 12.3 g/dL (12.0-16.0); Immature Granulocytes Abs Auto 0.17 10^3/uL (0.00-0.03); Immature Granulocytes Pct Auto 1.5 % (0.0-0.5); Lymphocytes Absolute Auto 0.8 10^3/uL (1.2-3.8); Mean Corpuscular HGB Conc 34.6 g/dL (29.9-35.2); Mean Corpuscular Hemoglobin 29.6 pg (26.7-34.0); Mean Corpuscular Volume 85.3 fL (81.0-99.0); Platelet Count 221 10^3/uL (150-450); Red Blood Count 4.16 10^6/uL (4.20-5.40); White Blood Count 11.0 10^3/uL (4.0-11.0)
[2024-10-31] MEDS: 0.9 % SODIUM CHLORIDE 1,000 ML 999 ML IV (19:57)
[2024-10-31] MEDS: FAMOTIDINE/PF 20 MG/2 ML VIAL IV (19:57)
[2024-10-31] MEDS: METHYLPREDNISOLONE SOD SUCC PF 125 MG/2 ML VIAL IVP (19:57)
[2024-10-31] MEDS: DIPHENHYDRAMINE HCL 50 MG/ML VIAL 25 MG IV (19:57)
[2024-10-31 20:12] LABS: Alanine Aminotransferase 21 U/L (14-59); Albumin Globulin Ratio 1.0; Albumin Level 3.5 g/dL (3.4-5.0); Alkaline Phosphatase 67 U/L (46-116); Anion Gap 12.6; Aspartate Amino Transferase 12 U/L (15-37); Blood Urea Nitrogen 16.0 mg/dL (7.0-18.0); Calcium 8.6 mg/dL (8.5-10.1); Carbon Dioxide 26.3 mmol/L (21.0-32.0); Chloride 105 mmol/L (98-107); Estimated GFR (African America >60 (>=60 mL/min/1.73m^2); Estimated GFR (Non-African Ame >60 (>=60 mL/min/1.73m^2); Globulin 3.5 g/dL; Glucose 169 mg/dL (74-106); Potassium 3.9 mmol/L (3.5-5.1); Sodium 140 mmol/L (136-145); Total Protein 7.0 g/dL (6.4-8.2)
[2024-11-02 14:08] LABS: Antinuclear Antibodies, IFA Negative (.)
== END 2024-10-31 21:19 | disposition home or self-care (01) ==
PROVIDERS: Physician Assistant; Emergency Provider Emergency Medicine
DX: L50.9 Urticaria, unspecified (principal); R21 Rash and other nonspecific skin eruption
CPT/HCPCS: 36415; 80053; 85025; 85652; 86038; 86140; 86431; 96374; 96375; 99284; J1200; J2919; J3490